=== PATIENT | female | born 1965 | race Caucasian/White ===

== ENCOUNTER → 2016-08-20 | Outpatient (CLI) | payer MEDICARE, MEDICAID ==
[~2016-08-20] MED LIST: ALBUTEROL1.25 MG/3 IH; AMBIEN 10MG10 M1 PO; AMBIEN 10MG10 MG PO; AMBIEN 5MG TABLE5 MG PO; AMITIZA8 MCG PO; AMOXICILLIN 8751 TAB PO; ANTI DEPRESSANT; ANTI-DIARRHEAL2 MG PO; ATIVAN 0.50.5 MG/TAB PO; AVINZA PO; BACTRIM DS 8001 TAB PO; BUMEX 1MG TA1 MG/TA1 PO; BUMEX2 MG PO; CARAFATE 1GM1 G PO; CARAFATE PO; CIPRO500 MG PO; CITALOPRAM20 MG PO; DAZIDOX10 MG PO; DEPAKOTE 250MG250 MG PO; DEPAKOTE ER 25250 MG PO; DESYREL 50MG50 MG PO; DEXILANT60 MG PO; DILAUDID 2MG/2 MG/M1 IV; DILAUDID 4MG TAB4 MG PO; DILAUDID4 MG PO; DROPERIDOL IJ; DROSPIRENONE; FENTANYL 25 MCG TD; FENTANYL 25 MCG TOP; FLEXERIL 1010 MG/TAB PO; FLEXERIL10 MG PO; GABAPENTIN300 M1 PO; HYDROMORPHONE HC2 MG PO; HYOSCYAMINE SL; INDERAL 10MG10 MG PO; INTRATHECAL PUMP; K-DUR 2020 MEQ PO; K-TAB20; KLONOPIN 0.5MG0.5 MG PO; KLOR-CON20 MEQ PO; LASIX 20MG TABL20 MG PO; LEVAQUIN 5500 MG/TAB PO; LIBRAX; LIDODERM PATCH TP; LIORESAL 1010 MG/TAB PO; LIORESAL20 MG PO; LORTAB 10/500 51 TAB PO; LORTAB 5/500 501 TAB PO; LORTAB 7.5/5001 TAB PO; MARINOL5 MG PO; MEDROL 4MG DOSPA4 MG PO; MICRO-K 1010 MEQ PO; MIDAMOR 5MG TAB5 MG PO; MIRALAX PA17 GM/Dose PO; MORPHINE 1515 MG/TAB PO; MORPHINE PAIN PUMP; MS CONTIN 115 MG/TAB PO; MS CONTIN 330 MG/TAB PO; MUCINEX 60600 MG/TA1 PO; NEOMYCIN SULFA500 MG PO; NEXIUM PO; NORCO 325 MG-101 TAB PO; NORCO 325 MG-51 TAB PO; NORCO 325 MG-7.1 TAB PO; PERCOCET 325 MG1 TA2 PO; PERCOCET 325 MG1 TAB PO; PERCOCET 5/321 UDTAB PO; PERCOCET 500 MG1 TAB PO; PERCOCET 650 MG1 TAB PO; PERCR 7.5 PO; PHENERGAN 25 TA25 MG PO; PHENERGAN25 MG PO; PHENERGAN25 MG RC; PHENERGAN25 MG/ML RC; PREVACID 15MG15 M1; PREVACID 30MG30 MG PO; PREVACID30 M1 PO; PRIL40 PO; PRILOSEC 20MG20 MG PO; PROAIR HFA0.09 MG/AC IH; PROAMATINE 5MG T5 MG PO; PROAMATINE10 MG PO; PROTONIX 40MG T40 MG PO; PROVENTIL0.09 MG/A1 IH; QUESTRAN LITE 41 PKT PO; REGLAN 10MG/11 MG/ML PO; REGLAN 10MG10 MG/TAB PO; REGLAN5 MG/ML; REQUIP3 MG PO; RT ADVAIR 228 DISKUS IH; RT ADVAIR 528 DISKUS IH; RT ALBUTER2.5 MG/0.5 IH; SENOKOT S 50 MG1 TAB PO; SENOKOT8.6 MG PO; TOPAMAX 100MG100 MG PO; TOPAMAX100 MG PO; TOPAMAX200 MG PO; TRAZODO50 MG PO; TRAZODONE HCL100 MG PO; TRAZODONE150 MG PO; VALIUM 10MG10 MG/TAB PO; VICODIN 5/5001 UDTAB PO; VICODIN ES 7.5 PO; VICODIN PO; XANAX0.5 MG PO; ZANAFLEX 4MG TAB4 MG PO; ZANAFLEX CAPSULE4 MG PO; ZOCOR 20MG20 MG PO; ZOCOR20 MG PO; ZOFRAN 4MG T4 MG/TAB PO; ZOFRAN 4MG T4 MG/TAB SL; ZOFRAN INJ4 MG/2 ML PO; ZOFRAN ODT4 MG PO; ZOFRAN8 MG PO; ZOLOFT 100MG100 MG PO; ZOLOFT100 MG PO; ZYPREXA ZYDIS5 MG PO; ZYRTEC 10MG10 MG PO
== END ==
LOC: COL.RAD 14:00
DX: M25.522 Pain in left elbow (principal)

== ENCOUNTER 2016-09-07 20:15 | Emergency (ER) | payer MEDICARE, MEDICAID ==
[~2016-09-07] VITALS: Ht 165.1 cm; Wt 96.4 kg
[~2016-09-07 20:15] MED LIST changes: -AMOXICILLIN 8751 TAB PO; -MS CONTIN 330 MG/TAB PO
[2016-09-07 20:20] VITALS: TEMP 99.2
[2016-09-07 20:59] LABS: BASO % 0.6 % (0.0-2.0); EOS # 0.1 (0.0-0.7); EOS % 1.2 % (0-4.0); GRAN # 3.1 (1.4-6.5); GRAN % 45.2 % (42.2-75.2); HEMATOCRIT 42.8 % (37.0-47.0); LYMPH # 3.1 (1.2-3.4); LYMPH % 44.8 % (20.0-51.0); MEAN CELL VOLUME 87 fl (80.0-100.0); MEAN CORPUSCULAR HEMOGLOBIN 28 pg (27.0-31.0); MEAN CORPUSCULAR HGB CONC 33 g/dl (33.0-37.0); MEAN PLATELET VOLUME 9.7 fl (7.4-10.4); MONO # 0.5 (0.1-0.6); MONO % 7.9 % (1.7-9.3); PLATELET COUNT 164 K/mm3 (130-400); RED BLOOD COUNT 4.94 M/mm3 (4.10-5.30); REDCELL DISTRIBUTION WIDTH-CV 13.7 % (11.5-14.5); WHITE BLOOD COUNT 6.8 K/mm3 (4.8-10.8)
[2016-09-07 21:12] LABS: ADJUSTED CALCIUM 9.1 mg/dL (8.4-10.2); ALBUMIN 4.1 gm/dL (3.5-5.0); BILIRUBIN,TOTAL 0.7 mg/dL (0.0-1.0); C-REACTIVE PROTEIN 1.3 mg/dL (0.0-0.9); CALCIUM 9.2 mg/dL (8.4-10.2); CREATININE, serum 0.78 mg/dL (0.52-1.25); POTASSIUM 3.8 mmol/L (3.4-5.0); TOTAL PROTEIN 7.3 gm/dL (6.4-8.2)
[2016-09-07 21:44] LABS: PH 6 (5-8); SQUAMOUS EPITHELIAL 0-2 /hpf; URINE APPEARANCE Clear; URINE BACTERIA None Seen /hpf; URINE BILIRUBIN Negative (NEGATIVE); URINE BLOOD Negative (NEGATIVE); URINE COLOR Yellow; URINE GLUCOSE Negative (NEGATIVE); URINE KETONE Negative (NEGATIVE); URINE RBC 0-2 /hpf; URINE UROBILINOGEN Negative (NEGATIVE); URINE WBC 0-2 /hpf
[2016-09-07] MEDS ORDERED: MS CONTIN 330 MG/TAB PO (21:44)
[2016-09-07] MEDS ORDERED: PERCOCET 325 MG1 TA2 PO (21:49)
[2016-09-07] MEDS ORDERED: AMOXICILLIN 8751 TAB PO (22:01)
[2016-09-07 22:54] VITALS: BP 94/62; PULSE 69
== END 2016-09-07 23:08 | disposition home or self-care (01) ==
LOC: COL.ER 20:15
PROVIDERS: Family Medicine
DX: L03.313 Cellulitis of chest wall (principal); G90.3 Multi-system degeneration of the autonomic nervous system
CPT/HCPCS: J2270; J2405; J7030; Q9967

== ENCOUNTER 2016-09-28 12:45 | Day surgery (SDC) | payer MEDICARE, MEDICAID ==
[~2016-09-28] VITALS: Ht 165.1 cm; Wt 97.9 kg
[~2016-09-28 12:45] MED LIST changes: +AMOXICILLIN 8751 TAB PO; +MS CONTIN 330 MG/TAB PO
[2016-09-28 13:39] VITALS: BP 146/81; PULSE 80; TEMP 97.8
[2016-09-28] MEDS ORDERED: PHENERGAN25 MG RC (13:54)
[2016-09-28] MEDS ORDERED: INDERAL 10MG10 MG PO (13:59)
[2016-09-28 15:00] VITALS: BP 109/65; PULSE 79
[2016-09-28 15:35] VITALS: BP 115/88; PULSE 83
[2016-09-28 15:50] VITALS: BP 106/77; PULSE 69
[2016-09-28 16:00] VITALS: BP 117/85; PULSE 74
== END 2016-09-28 16:30 | disposition home or self-care (01) ==
LOC: SDCO 12:45
DX: T82.7XXA Infection and inflammatory reaction due to other cardiac and vascular devices, implants and grafts, initial encounter (principal); J44.9 Chronic obstructive pulmonary disease, unspecified; F32.9 Major depressive disorder, single episode, unspecified; G90.3 Multi-system degeneration of the autonomic nervous system; E66.9 Obesity, unspecified
CPT/HCPCS: J2250; J2405; J2704; J3010; J7030

== ENCOUNTER 2016-10-12 10:10 | Day surgery (SDC) | payer MEDICARE, MEDICAID ==
[~2016-10-12] VITALS: Ht 165.1 cm; Wt 100.2 kg
[2016-10-12 11:21] VITALS: BP 113/70; PULSE 71; TEMP 98
[2016-10-12 13:15] VITALS: BP 126/85; PULSE 87; TEMP 97.2
[2016-10-12 13:30] VITALS: BP 126/98; PULSE 76
[2016-10-12 13:45] VITALS: BP 115/76; PULSE 75
[2016-10-12 14:00] VITALS: BP 110/74; PULSE 69
== END 2016-10-12 14:15 | disposition home or self-care (01) ==
LOC: SDCO 10:10
DX: G90.3 Multi-system degeneration of the autonomic nervous system (principal); E66.9 Obesity, unspecified; J44.9 Chronic obstructive pulmonary disease, unspecified; G89.29 Other chronic pain
CPT/HCPCS: C1788; J0690; J1644; J2250; J2405; J2704; J7030

== ENCOUNTER → 2016-10-25 | Outpatient (CLI) | payer MEDICARE, MEDICAID | LOC: COL.RAD 10:58 | DX: Z95.828 Presence of other vascular implants and grafts (principal) ==

== ENCOUNTER 2016-10-29 08:47 | Observation (INO) | payer MEDICARE, MEDICAID ==
[2016-10-29] VITALS (7 sets, daily range): BP systolic 91–157; BP diastolic 42–103; PULSE 62–76; TEMP 97.8–98.5
[~2016-10-29] VITALS: Ht 165.1 cm; Wt 96.8 kg
[2016-10-29 09:29] LABS: BASO # 0.1 (0.0-0.2); BASO % 0.7 % (0.0-2.0); EOS # 0.1 (0.0-0.7); EOS % 1.8 % (0-4.0); GRAN # 5.1 (1.4-6.5); GRAN % 67.3 % (42.2-75.2); HEMATOCRIT 42.3 % (37.0-47.0); HEMOGLOBIN 13.9 g/dl (12.5-16.0); LYMPH # 1.8 (1.2-3.4); LYMPH % 24.2 % (20.0-51.0); MEAN CELL VOLUME 86 fl (80.0-100.0); MEAN CORPUSCULAR HEMOGLOBIN 28 pg (27.0-31.0); MEAN CORPUSCULAR HGB CONC 33 g/dl (33.0-37.0); MEAN PLATELET VOLUME 9.1 fl (7.4-10.4); MONO # 0.4 (0.1-0.6); MONO % 5.7 % (1.7-9.3); PLATELET COUNT 221 K/mm3 (130-400); RED BLOOD COUNT 4.93 M/mm3 (4.10-5.30); REDCELL DISTRIBUTION WIDTH-CV 13.1 % (11.5-14.5); WHITE BLOOD COUNT 7.6 K/mm3 (4.8-10.8)
[2016-10-29 09:36] LABS: PARTIAL THROMBOPLASTIN TIME 45.8 SECONDS (26.0-37.0)
[2016-10-29 09:40] LABS: ADJUSTED CALCIUM 9.5 mg/dL (8.4-10.2); ALANINE AMINOTRANSFERASE 21 U/L (9-52); ALBUMIN 4.1 gm/dL (3.5-5.0); ALKALINE PHOSPHATASE 104 U/L (50-136); ANION GAP 14 mmol/L (7-16); BILIRUBIN,TOTAL 0.6 mg/dL (0.0-1.0); BLOOD UREA NITROGEN 12 mg/dL (7-17); CALCIUM 9.6 mg/dL (8.4-10.2); CARBON DIOXIDE 20 mmol/L (22-30); CHLORIDE 106 mmol/L (98-107); CREATININE, serum 0.82 mg/dL (0.52-1.25); GLUCOSE 104 mg/dL (74-106); POTASSIUM 3.8 mmol/L (3.4-5.0); SODIUM 140 mmol/L (137-145); TOTAL PROTEIN 7.6 gm/dL (6.4-8.2)
[2016-10-29 10:05] LABS: TROPONIN-I < 0.012 ng/mL (0.000-0.034)
[2016-10-30 01:24] LABS: pH GASTRIC CONTENTS 4
[2016-10-30 04:11] VITALS: BP 97/61; PULSE 69; TEMP 97.5
[2016-10-30 05:12] LABS: AMPHETAMINE URINE NEGATIVE; BARBITURATES URINE NEGATIVE; BENZODIAZEPINES URINE POSITIVE; BUPRENORPHINE URINE NEGATIVE; METHADONE URINE NEGATIVE; OPIATES URINE POSITIVE; OXYCODONE URINE POSITIVE; PHENCYCLIDINE URINE NEGATIVE; PROPOXYPHENE URINE NEGATIVE; THC CANNABINOIDS URINE POSITIVE
[2016-10-30 08:13] VITALS: BP 101/71; PULSE 74; TEMP 98
== END 2016-10-30 11:16 | disposition home or self-care (01) ==
LOC: COL.ER 08:47 → MEDICAL 11:58
PROVIDERS: Emergency Medicine; Internal Medicine
DX: R55 Syncope and collapse (principal); R11.2 Nausea with vomiting, unspecified; G90.3 Multi-system degeneration of the autonomic nervous system; I35.0 Nonrheumatic aortic (valve) stenosis; K31.84 Gastroparesis; G89.29 Other chronic pain; G43.909 Migraine, unspecified, not intractable, without status migrainosus; F41.8 Other specified anxiety disorders; K21.9 Gastro-esophageal reflux disease without esophagitis; Z66 Do not resuscitate
CPT/HCPCS: G0378; J1650; J2060; J2270; J2405; J3010; J3360; J7030

== ENCOUNTER 2016-12-24 02:58 | Emergency (ER) | payer MEDICARE, MEDICAID ==
[~2016-12-24] VITALS: Ht 165.1 cm; Wt 95.5 kg
[2016-12-24 04:23] LABS: BASO % 0.5 % (0.0-2.0); EOS % 0.5 % (0-4.0); GRAN # 4.4 (1.4-6.5); GRAN % 67.7 % (42.2-75.2); HEMATOCRIT 44.7 % (37.0-47.0); HEMOGLOBIN 15.2 g/dl (12.5-16.0); LYMPH # 1.6 (1.2-3.4); LYMPH % 24.5 % (20.0-51.0); MEAN CELL VOLUME 83 fl (80.0-100.0); MEAN CORPUSCULAR HEMOGLOBIN 28 pg (27.0-31.0); MEAN CORPUSCULAR HGB CONC 34 g/dl (33.0-37.0); MEAN PLATELET VOLUME 8.6 fl (7.4-10.4); MONO # 0.4 (0.1-0.6); MONO % 6.5 % (1.7-9.3); PLATELET COUNT 233 K/mm3 (130-400); RED BLOOD COUNT 5.42 M/mm3 (4.10-5.30); REDCELL DISTRIBUTION WIDTH-CV 12.9 % (11.5-14.5); WHITE BLOOD COUNT 6.5 K/mm3 (4.8-10.8)
[2016-12-24 04:30] LABS: CALCIUM 9.4 mg/dL (8.4-10.2); CREATININE, serum 0.8 mg/dL (0.52-1.25); POTASSIUM 3.3 mmol/L (3.4-5.0)
[2016-12-24 06:24] VITALS: BP 112/71; PULSE 70
== END 2016-12-24 06:33 | disposition home or self-care (01) ==
LOC: COL.ER 02:58
PROVIDERS: Emergency Medicine
DX: K31.84 Gastroparesis (principal); G90.3 Multi-system degeneration of the autonomic nervous system; E87.6 Hypokalemia
CPT/HCPCS: J1644; J2060; J2550; J3010; J7120

== ENCOUNTER 2016-12-24 12:38 | Emergency (ER) | payer MEDICARE, MEDICAID ==
[~2016-12-24] VITALS: Ht 165.1 cm; Wt 90.9 kg
[2016-12-24 12:43] VITALS: TEMP 98.1
[2016-12-24 13:39] LABS: BASO % 0.5 % (0.0-2.0); EOS % 0.5 % (0-4.0); GRAN # 4.7 (1.4-6.5); GRAN % 58.7 % (42.2-75.2); HEMATOCRIT 44.8 % (37.0-47.0); HEMOGLOBIN 15.2 g/dl (12.5-16.0); LYMPH # 2.7 (1.2-3.4); LYMPH % 33.5 % (20.0-51.0); MEAN CELL VOLUME 82 fl (80.0-100.0); MEAN CORPUSCULAR HEMOGLOBIN 28 pg (27.0-31.0); MEAN CORPUSCULAR HGB CONC 34 g/dl (33.0-37.0); MEAN PLATELET VOLUME 8.9 fl (7.4-10.4); MONO # 0.5 (0.1-0.6); MONO % 6.5 % (1.7-9.3); PLATELET COUNT 245 K/mm3 (130-400); RED BLOOD COUNT 5.46 M/mm3 (4.10-5.30)
[2016-12-24 14:05] LABS: ADJUSTED CALCIUM 9.2 mg/dL (8.4-10.2); ALANINE AMINOTRANSFERASE 20 U/L (9-52); ALBUMIN 4.5 gm/dL (3.5-5.0); ALKALINE PHOSPHATASE 100 U/L (50-136); ANION GAP 15 mmol/L (7-16); BLOOD UREA NITROGEN 14 mg/dL (7-17); CALCIUM 9.6 mg/dL (8.4-10.2); CARBON DIOXIDE 18 mmol/L (22-30); CHLORIDE 106 mmol/L (98-107); CREATININE, serum 0.83 mg/dL (0.52-1.25); GLUCOSE 90 mg/dL (74-106); POTASSIUM 3.3 mmol/L (3.4-5.0); SODIUM 139 mmol/L (137-145); TOTAL PROTEIN 7.6 gm/dL (6.4-8.2)
[2016-12-24 14:07] LABS: C-REACTIVE PROTEIN < 0.5 mg/dL (0.0-0.9)
[2016-12-24 16:47] VITALS: BP 114/64; PULSE 82
== END 2016-12-24 16:53 | disposition home or self-care (01) ==
LOC: COL.ER 12:38
PROVIDERS: Emergency Medicine
DX: R11.2 Nausea with vomiting, unspecified (principal); R19.7 Diarrhea, unspecified; R06.4 Hyperventilation; R10.84 Generalized abdominal pain; J44.9 Chronic obstructive pulmonary disease, unspecified; F32.9 Major depressive disorder, single episode, unspecified; G90.3 Multi-system degeneration of the autonomic nervous system; F41.9 Anxiety disorder, unspecified; R00.0 Tachycardia, unspecified
CPT/HCPCS: J1630; J2060; J2405; J7030

== ENCOUNTER → 2017-01-06 | Outpatient (CLI) | payer MEDICARE, MEDICAID | LOC: COL.RAD 13:00 | DX: K22.4 Dyskinesia of esophagus (principal) ==

== ENCOUNTER 2017-04-16 20:55 | Emergency (ER) | payer MEDICARE, MEDICAID ==
[2017-04-16 20:56] VITALS: BP 136/78; TEMP 97.4
[2017-04-16 22:42] VITALS: PULSE 84
[2018-02-07] MEDS ORDERED: ALBUTEROL1.25 MG/3 IH (09:30)
[2018-02-07] MEDS ORDERED: PHENERGAN 25 TA25 MG PO (09:34)
[2018-02-07] MEDS ORDERED: MORPHINE 1515 MG/TAB PO (09:34)
[2018-02-07] MEDS ORDERED: PROTONIX 40MG T40 MG PO (09:35)
[2018-02-07] MEDS ORDERED: TOPAMAX 100MG100 M1 PO (09:37)
[2018-02-07] MEDS ORDERED: ZANAFLEX CAPSULE2 MG PO (09:38)
[2018-03-17] MEDS ORDERED: PROTONIX 40MG T40 MG PO ×2 (10:18)
[2018-05-04] MEDS ORDERED: BIAXIN 250MG T250 M1 PO (01:29)
[2018-05-04] MEDS ORDERED: ZOFRAN ODT4 MG PO (03:07)
[2018-05-04] MEDS ORDERED: PHENERGAN 25 TA25 MG PO (03:12)
[2018-05-04] MEDS ORDERED: PAIN PUMP IT (10:21)
[2018-05-05] MEDS ORDERED: PROTONIX 40MG T40 MG PO (09:51)
[2018-05-05] MEDS ORDERED: PREDNISONE20 MG PO (09:53)
[2018-07-21] MEDS ORDERED: PREDNISONE10 MG PO (12:46)
[2018-07-24] MEDS ORDERED: PHENERGAN 25 TA25 MG PO (10:15)
[2018-07-24] MEDS ORDERED: ZOFRAN ODT4 MG PO (10:15)
== END 2017-04-16 22:45 | disposition home or self-care (01) ==
LOC: COL.ER 20:55
DX: S09.90XA Unspecified injury of head, initial encounter (principal); W20.8XXA Other cause of strike by thrown, projected or falling object, initial encounter; Y92.009 Unspecified place in unspecified non-institutional (private) residence as the place of occurrence of the external cause
CPT/HCPCS: J1170; J2550

== ENCOUNTER 2017-07-10 09:46 | Emergency (ER) | payer MEDICARE, MEDICAID ==
[~2017-07-10] VITALS: Ht 165.1 cm; Wt 113.6 kg
[2017-07-10 09:50] VITALS: TEMP 97.4
[2017-07-10 10:56] LABS: BASO # 0.1 (0.0-0.2); BASO % 0.6 % (0.0-2.0); EOS # 0.1 (0.0-0.7); EOS % 1.2 % (0-4.0); GRAN # 6.1 (1.4-6.5); HEMATOCRIT 41.6 % (37.0-47.0); HEMOGLOBIN 13.8 g/dl (12.5-16.0); LYMPH # 2.3 (1.2-3.4); LYMPH % 23.7 % (20.0-51.0); MEAN CELL VOLUME 84 fl (80.0-100.0); MEAN CORPUSCULAR HEMOGLOBIN 28 pg (27.0-31.0); MEAN CORPUSCULAR HGB CONC 33 g/dl (33.0-37.0); MEAN PLATELET VOLUME 8.7 fl (7.4-10.4); MONO # 1.1 (0.1-0.6); MONO % 10.8 % (1.7-9.3); PLATELET COUNT 211 K/mm3 (130-400); RED BLOOD COUNT 4.97 M/mm3 (4.10-5.30); WHITE BLOOD COUNT 9.7 K/mm3 (4.8-10.8)
[2017-07-10 11:06] LABS: ADJUSTED CALCIUM 8.9 mg/dL (8.4-10.2); ALBUMIN 4.3 gm/dL (3.5-5.0); BILIRUBIN,TOTAL 0.5 mg/dL (0.0-1.0); CALCIUM 9.1 mg/dL (8.4-10.2); CREATININE, serum 0.85 mg/dL (0.52-1.25); MAGNESIUM 1.9 mg/dL (1.6-2.3); POTASSIUM 3.4 mmol/L (3.4-5.0); TOTAL PROTEIN 7.4 gm/dL (6.4-8.2)
[2017-07-10 11:45] LABS: COLLECTION METHOD CLEAN CATCH
[2017-07-10 12:05] LABS: MUCOUS Present /lpf; PH 5 (5-8); SQUAMOUS EPITHELIAL None Seen /hpf; URINE APPEARANCE Clear; URINE BACTERIA None Seen /hpf; URINE BILIRUBIN Negative (NEGATIVE); URINE BLOOD Negative (NEGATIVE); URINE COLOR Yellow; URINE GLUCOSE Negative (NEGATIVE); URINE KETONE Trace (NEGATIVE); URINE LEUKOCYTE ESTERASE Trace (NEGATIVE); URINE PROTEIN(semi-quant) Negative (NEGATIVE); URINE RBC 0-2 /hpf; URINE UROBILINOGEN Negative (NEGATIVE)
[2017-07-10 12:19] VITALS: BP 110/64; PULSE 76
== END 2017-07-10 12:30 | disposition home or self-care (01) ==
LOC: COL.ER 09:46
PROVIDERS: Physician Assistant
DX: S09.90XA Unspecified injury of head, initial encounter (principal); R19.7 Diarrhea, unspecified; R11.10 Vomiting, unspecified; J45.909 Unspecified asthma, uncomplicated; Z91.81 History of falling; W19.XXXA Unspecified fall, initial encounter; W22.8XXA Striking against or struck by other objects, initial encounter
CPT/HCPCS: J1170; J2060; J2550; J7030

== ENCOUNTER 2017-08-11 08:47 | Emergency (ER) | payer MEDICARE, MEDICAID ==
[~2017-08-11] VITALS: Ht 165.1 cm; Wt 97.7 kg
[2017-08-11 09:47] LABS: BASO % 0.2 % (0.0-2.0); EOS % 0.1 % (0-4.0); GRAN # 7.9 (1.4-6.5); GRAN % 73.3 % (42.2-75.2); HEMATOCRIT 40.5 % (37.0-47.0); HEMOGLOBIN 13.2 g/dl (12.5-16.0); LYMPH # 1.7 (1.2-3.4); MEAN CELL VOLUME 86 fl (80.0-100.0); MEAN CORPUSCULAR HEMOGLOBIN 28 pg (27.0-31.0); MEAN CORPUSCULAR HGB CONC 33 g/dl (33.0-37.0); MEAN PLATELET VOLUME 9.2 fl (7.4-10.4); PLATELET COUNT 180 K/mm3 (130-400); RED BLOOD COUNT 4.69 M/mm3 (4.10-5.30); REDCELL DISTRIBUTION WIDTH-CV 14.6 % (11.5-14.5)
[2017-08-11 09:51] LABS: ALANINE AMINOTRANSFERASE 34 U/L (9-52); ALBUMIN 4.5 gm/dL (3.5-5.0); ALKALINE PHOSPHATASE 96 U/L (50-136); ANION GAP 9 mmol/L (7-16); AST,SGOT 26 U/L (15-37); BILIRUBIN,TOTAL 0.3 mg/dL (0.0-1.0); BLOOD UREA NITROGEN 11 mg/dL (7-17); CALCIUM 9.5 mg/dL (8.4-10.2); CARBON DIOXIDE 25 mmol/L (22-30); CHLORIDE 106 mmol/L (98-107); CREATININE, serum 0.72 mg/dL (0.52-1.25); GLUCOSE 101 mg/dL (74-106); LIPASE 29 U/L (23-300); SODIUM 140 mmol/L (137-145); TOTAL PROTEIN 7.4 gm/dL (6.4-8.2)
[2017-08-11 10:02] LABS: TROPONIN-I < 0.012 ng/mL (0.000-0.034)
[2017-08-11 10:06] LABS: PROLACTIN 32.8 ng/mL (3.0-18.6)
[2017-08-11 12:03] VITALS: BP 122/77; PULSE 70; TEMP 98
== END 2017-08-11 11:57 | disposition home or self-care (01) ==
LOC: COL.ER 08:47
PROVIDERS: Emergency Medicine
DX: S70.01XA Contusion of right hip, initial encounter (principal); S70.02XA Contusion of left hip, initial encounter; F41.9 Anxiety disorder, unspecified; R56.9 Unspecified convulsions; V43.52XA Car driver injured in collision with other type car in traffic accident, initial encounter
CPT/HCPCS: J1170; J1630; J2060; J7030

== ENCOUNTER → 2017-08-26 | Outpatient (CLI) | payer MEDICARE, MEDICAID | LOC: COL.CARD 09:59 | DX: R56.9 Unspecified convulsions (principal) ==

== ENCOUNTER 2017-10-31 07:19 | Emergency (ER) | payer MEDICARE, MEDICAID ==
[~2017-10-31] VITALS: Ht 165.1 cm; Wt 97.7 kg
[2017-10-31 07:29] VITALS: BP 129/84
[2017-10-31] MEDS ORDERED: PEPCID 20MG TAB20 MG PO (08:24)
[2017-10-31] MEDS ORDERED: PREDNISONE20 MG PO (08:24)
[2017-10-31 13:57] VITALS: PULSE 90; TEMP 98.3
== END 2017-10-31 08:50 | disposition home or self-care (01) ==
LOC: COL.ER 07:19
DX: H57.8 Other specified disorders of eye and adnexa (principal); F41.9 Anxiety disorder, unspecified; Z79.51 Long term (current) use of inhaled steroids
CPT/HCPCS: J7512

== ENCOUNTER 2017-11-15 19:12 | Emergency (ER) | payer MEDICARE, MEDICAID ==
[~2017-11-15] VITALS: Ht 165.1 cm; Wt 97.7 kg
[~2017-11-15 19:12] MED LIST changes: +PEPCID 20MG TAB20 MG PO; +PREDNISONE20 MG PO
[2017-11-15 19:24] LABS: ARTERIAL BLD GAS O2 SATURATION 91.7 % (92-100); ARTERIAL BLD GAS TCO2 CT 23.1; ARTERIAL BLOOD GAS HCO3 21.8 meq/L (22-26); ARTERIAL BLOOD GAS PCO2 42.2 mmHg (35-45); ARTERIAL BLOOD GAS PO2 64.8 mmHg (80-100); ARTERIAL BLOOD GAS pH 7.33 (7.35-7.45)
[2017-11-15 19:31] LABS: BASO # 0.1 (0.0-0.2); BASO % 0.7 % (0.0-2.0); EOS # 0.1 (0.0-0.7); EOS % 1.2 % (0-4.0); GRAN # 3.6 (1.4-6.5); HEMATOCRIT 44.1 % (37.0-47.0); HEMOGLOBIN 14.4 g/dl (12.5-16.0); LYMPH # 5.5 (1.2-3.4); LYMPH % 53.8 % (20.0-51.0); MEAN CELL VOLUME 86 fl (80.0-100.0); MEAN CORPUSCULAR HEMOGLOBIN 28 pg (27.0-31.0); MEAN CORPUSCULAR HGB CONC 33 g/dl (33.0-37.0); MEAN PLATELET VOLUME 9.2 fl (7.4-10.4); MONO # 0.9 (0.1-0.6); MONO % 8.9 % (1.7-9.3); PLATELET COUNT 287 K/mm3 (130-400); RED BLOOD COUNT 5.14 M/mm3 (4.10-5.30); REDCELL DISTRIBUTION WIDTH-CV 13.1 % (11.5-14.5)
[2017-11-15 19:33] LABS: COLLECTION METHOD CATHETER
[2017-11-15 19:41] LABS: ALANINE AMINOTRANSFERASE 33 U/L (9-52); ALBUMIN 3.7 gm/dL (3.5-5.0); ALKALINE PHOSPHATASE 73 U/L (50-136); ANION GAP 16 mmol/L (7-16); AST,SGOT 13 U/L (15-37); BILIRUBIN,TOTAL 0.3 mg/dL (0.0-1.0); BLOOD UREA NITROGEN 14 mg/dL (7-17); CALCIUM 8.8 mg/dL (8.4-10.2); CARBON DIOXIDE 22 mmol/L (22-30); CHLORIDE 101 mmol/L (98-107); CREATININE, serum 1.21 mg/dL (0.52-1.25); GLUCOSE 386 mg/dL (74-106); POTASSIUM 4.5 mmol/L (3.4-5.0); SODIUM 139 mmol/L (137-145); TOTAL PROTEIN 6.5 gm/dL (6.4-8.2)
[2017-11-15 19:43] LABS: ACETAMINOPHEN < 10 ug/mL (10-30); ALCOHOL(ethanol),MEDICAL < 10 mg/dL; SALICYLATE < 1.0 mg/dL
[2017-11-15 19:44] LABS: MUCOUS Present /lpf; PH 5 (5-8); SQUAMOUS EPITHELIAL 0-2 /hpf; URINE APPEARANCE Clear; URINE BACTERIA None Seen /hpf; URINE BILIRUBIN Negative (NEGATIVE); URINE BLOOD Negative (NEGATIVE); URINE COLOR Yellow; URINE GLUCOSE Negative (NEGATIVE); URINE KETONE Negative (NEGATIVE); URINE LEUKOCYTE ESTERASE Negative (NEGATIVE); URINE NITRATE Negative (NEGATIVE); URINE PROTEIN(semi-quant) Negative (NEGATIVE); URINE RBC 0-2 /hpf; URINE UROBILINOGEN Negative (NEGATIVE)
[2017-11-15 19:46] LABS: PROTHROMBIN TIME 12.1 SECONDS (9.7-12.8)
[2017-11-15 19:52] LABS: TRICYCLIC ANTIDEPRESS URINE NEGATIVE
[2017-11-15 19:55] LABS: TROPONIN-I < 0.012 ng/mL (0.000-0.034)
[2017-11-15] MEDS ORDERED: TOPAMAX 100MG100 M1 PO (20:11)
[2017-11-15] MEDS ORDERED: PROTONIX 40MG T40 MG PO (20:12)
[2017-11-15] MEDS ORDERED: ZANAFLEX2 MG PO (20:12)
[2017-11-15 20:13] VITALS: TEMP 97.4
[2017-11-15 20:50] VITALS: BP 133/101; PULSE 69
[2017-11-15 20:51] LABS: ARTERIAL BLD GAS O2 SATURATION 95.7 % (92-100); ARTERIAL BLD GAS TCO2 CT 22.6; ARTERIAL BLOOD GAS BASE EXCESS -3.2 (-2-2); ARTERIAL BLOOD GAS HCO3 21.4 meq/L (22-26); ARTERIAL BLOOD GAS PCO2 37.3 mmHg (35-45); ARTERIAL BLOOD GAS PO2 81.2 mmHg (80-100); ARTERIAL BLOOD GAS pH 7.38 (7.35-7.45)
== END 2017-11-15 21:00 | disposition short-term general hospital (02) ==
LOC: COL.ER 19:12
PROVIDERS: Emergency Medicine
DX: T42.8X2A Poisoning by antiparkinsonism drugs and other central muscle-tone depressants, intentional self-harm, initial encounter (principal); J45.909 Unspecified asthma, uncomplicated; F32.9 Major depressive disorder, single episode, unspecified; F41.9 Anxiety disorder, unspecified; G89.29 Other chronic pain; M54.9 Dorsalgia, unspecified; Z90.710 Acquired absence of both cervix and uterus; Z90.49 Acquired absence of other specified parts of digestive tract; Z90.89 Acquired absence of other organs
CPT/HCPCS: J0461; J7030

== ENCOUNTER → 2018-01-18 | Outpatient (CLI) | payer MEDICARE, MEDICAID ==
[~2018-01-18] MED LIST changes: +TOPAMAX 100MG100 M1 PO; +ZANAFLEX2 MG PO
== END ==
LOC: COL.RAD 09:02
DX: I27.20 Pulmonary hypertension, unspecified (principal); E04.1 Nontoxic single thyroid nodule; Z90.49 Acquired absence of other specified parts of digestive tract; Z95.828 Presence of other vascular implants and grafts

== ENCOUNTER → 2018-01-31 | Outpatient (CLI) | payer MEDICARE, MEDICAID | LOC: COL.RAD 11:38 | DX: E04.9 Nontoxic goiter, unspecified (principal); E04.1 Nontoxic single thyroid nodule ==

== ENCOUNTER → 2018-02-09 | Outpatient (CLI) | payer MEDICARE, MEDICAID ==
[~2018-02-09] VITALS: Ht 165.1 cm; Wt 105.6 kg
[~2018-02-09] MED LIST changes: +ZANAFLEX CAPSULE2 MG PO
[2018-02-09 12:13] VITALS: BP 120/88; PULSE 96
[2018-02-09 13:38] VITALS: BP 119/87; PULSE 80
== END ==
LOC: COL.RAD 11:45
DX: E04.2 Nontoxic multinodular goiter (principal); I95.1 Orthostatic hypotension

== ENCOUNTER 2018-03-15 16:17 | Observation (INO) | payer MEDICARE, MEDICAID ==
[~2018-03-15] VITALS: Ht 167.6 cm; Wt 93.4 kg
[2018-03-15 17:33] LABS: BASO # 0.1 (0.0-0.2); EOS # 0.1 (0.0-0.7); EOS % 1.8 % (0-4.0); GRAN % 49.3 % (42.2-75.2); HEMATOCRIT 43.1 % (37.0-47.0); HEMOGLOBIN 14.3 g/dl (12.5-16.0); LYMPH # 2.3 (1.2-3.4); LYMPH % 37.6 % (20.0-51.0); MEAN CELL VOLUME 84 fl (80.0-100.0); MEAN CORPUSCULAR HEMOGLOBIN 28 pg (27.0-31.0); MEAN CORPUSCULAR HGB CONC 33 g/dl (33.0-37.0); MEAN PLATELET VOLUME 9.1 fl (7.4-10.4); MONO # 0.6 (0.1-0.6); MONO % 9.8 % (1.7-9.3); PLATELET COUNT 189 K/mm3 (130-400); RED BLOOD COUNT 5.16 M/mm3 (4.10-5.30); REDCELL DISTRIBUTION WIDTH-CV 13.2 % (11.5-14.5)
[2018-03-15 17:42] LABS: ALBUMIN 4.1 gm/dL (3.5-5.0); BILIRUBIN,TOTAL 0.4 mg/dL (0.0-1.0); CALCIUM 9.1 mg/dL (8.4-10.2); CREATININE, serum 0.78 mg/dL (0.52-1.25); MAGNESIUM 1.6 mg/dL (1.6-2.3); POTASSIUM 3.7 mmol/L (3.4-5.0); TOTAL PROTEIN 7.2 gm/dL (6.4-8.2)
[2018-03-15 17:47] VITALS: BP 96/74; PULSE 61; TEMP 97.9
[2018-03-15] MEDS ORDERED: 00186-0370-20 IH (17:50)
[2018-03-15] MEDS ORDERED: FLORINEF ACETA0.1 MG PO (17:51)
[2018-03-15] MEDS ORDERED: NORVASC2.5 MG PO (17:52)
[2018-03-15] MEDS ORDERED: MEDROL4 MG (17:53)
[2018-03-15] MEDS ORDERED: KLOR-CON 88 ME1 PO (17:54)
[2018-03-15] MEDS ORDERED: ALBUTEROL0.83 MG/ML IH (17:54)
[2018-03-15] MEDS ORDERED: ATIVAN 0.50.5 MG/TAB PO (17:55)
[2018-03-15] MEDS ORDERED: LASIX 40MG TABL40 MG PO (17:55)
[2018-03-15 20:00] VITALS: BP 90/65; PULSE 71; TEMP 97.4
[2018-03-15 23:59] LABS: MUCOUS Present /lpf; PH 5 (5-8); SQUAMOUS EPITHELIAL 0-2 /hpf; URINE APPEARANCE Hazy; URINE BACTERIA None Seen /hpf; URINE BILIRUBIN Negative (NEGATIVE); URINE BLOOD Negative (NEGATIVE); URINE COLOR Yellow; URINE GLUCOSE Negative (NEGATIVE); URINE KETONE Negative (NEGATIVE); URINE LEUKOCYTE ESTERASE Negative (NEGATIVE); URINE NITRATE Negative (NEGATIVE); URINE PROTEIN(semi-quant) Negative (NEGATIVE); URINE RBC 0-2 /hpf; URINE UROBILINOGEN Negative (NEGATIVE); URINE WBC 0-2 /hpf
[2018-03-16] LABS: COLLECTION METHOD CATHETER
[2018-03-16 04:12] VITALS: BP 93/55; PULSE 61; TEMP 97.4
[2018-03-16 07:22] VITALS: BP 115/71; PULSE 70; TEMP 97.9
[2018-03-16 08:00] LABS: CALCIUM 8.8 mg/dL (8.4-10.2); CREATININE, serum 0.75 mg/dL (0.52-1.25)
[2018-03-16 11:20] VITALS: BP 108/68; PULSE 80; TEMP 98.1
[2018-03-16 15:43] VITALS: BP 103/65; PULSE 82; TEMP 98.4
[2018-03-16 20:40] VITALS: BP 101/61; PULSE 89; TEMP 98.6
[2018-03-17 00:34] VITALS: BP 102/61; PULSE 80; TEMP 97.4
[2018-03-17 04:12] VITALS: BP 122/85; PULSE 71; TEMP 98.5
[2018-03-17 07:05] VITALS: BP 108/72; PULSE 66; TEMP 98.4
[2018-03-17] MEDS ORDERED: ZOFRAN ODT4 MG PO (10:18)
[2018-03-17] MEDS ORDERED: PROTONIX 40MG T40 MG PO (10:18)
[2018-03-17] MEDS ORDERED: ZANTAC 150MG T150 MG PO (10:19)
== END 2018-03-17 11:30 | disposition home or self-care (01) ==
LOC: MEDICAL 16:17
PROVIDERS: Family Medicine
DX: R11.2 Nausea with vomiting, unspecified (principal); E86.0 Dehydration; G90.3 Multi-system degeneration of the autonomic nervous system; G89.29 Other chronic pain; Z96.89 Presence of other specified functional implants; I10 Essential (primary) hypertension; K31.84 Gastroparesis; G25.81 Restless legs syndrome; Z79.899 Other long term (current) drug therapy
CPT/HCPCS: C9113; G0378; G8978-GP; G8979-GP; J1650; J2060; J2270; J2405; J2550; J3480; J7509

== ENCOUNTER → 2018-05-23 | Outpatient (CLI) | payer MEDICARE, MEDICAID ==
[~2018-05-23] MED LIST changes: +00186-0370-20 IH; +ALBUTEROL0.83 MG/ML IH; +BIAXIN 250MG T250 M1 PO; +FLORINEF ACETA0.1 MG PO; +KLOR-CON 88 ME1 PO; +LASIX 40MG TABL40 MG PO; +MEDROL4 MG; +NORVASC2.5 MG PO; +PAIN PUMP IT; +ZANTAC 150MG T150 MG PO
== END ==
LOC: COL.RAD 13:58
DX: J84.10 Pulmonary fibrosis, unspecified (principal); Z95.828 Presence of other vascular implants and grafts; Z90.49 Acquired absence of other specified parts of digestive tract; Z97.8 Presence of other specified devices

== ENCOUNTER → 2018-07-20 | Outpatient (CLI) | payer MEDICARE, MEDICAID ==
[~2018-07-20] VITALS: Ht 165.1 cm; Wt 97.0 kg
[~2018-07-20] MED LIST changes: +PREDNISONE10 MG PO
[2018-07-20 16:00] VITALS: BP 94/65; PULSE 70; TEMP 97.3
[2018-07-20 17:44] VITALS: BP 96/62; PULSE 62
== END ==
LOC: EUO 14:53
DX: E86.0 Dehydration (principal); Z45.2 Encounter for adjustment and management of vascular access device; Z95.9 Presence of cardiac and vascular implant and graft, unspecified
CPT/HCPCS: J1170; J1644; J2405; J7030

== ENCOUNTER 2020-01-23 22:07 | Observation (INO) | payer MEDICARE, MEDICAID ==
[~2020-01-23] VITALS: Ht 165.1 cm; Wt 91.3 kg
[2020-01-24] VITALS (7 sets, daily range): BP systolic 102–120; BP diastolic 60–94; PULSE 62–71; TEMP 97.1–98.6
[2020-01-24] MEDS ORDERED: PEPCID40 MG PO (00:35)
[2020-01-24] MEDS ORDERED: QUDEXY XR200 MG PO (00:37)
[2020-01-24] MEDS ORDERED: SYNTHROID0.1 MG/TAB PO (00:40)
[2020-01-24] MEDS ORDERED: ZOLOFT 100MG100 MG PO (00:41)
[2020-01-24] MEDS ORDERED: PROAMATINE10 MG PO (00:44)
[2020-01-24] MEDS ORDERED: ZANAFLEX CAPSULE6 MG PO (00:45)
--- NOTE | 2020-01-24 01:15 | NUR ---
Pt. arrived to the floor via stretcher. Pt. is A&OX3, assessment complete. INT to rt. ac patent. Peg tube noted to abd without a cap. Tube is clamped. Pt. reports pain to abd. at a 9. Pt. denies further needs.
[2020-01-24 03:10] LABS: BASO % 0.8 % (0.0-2.0); EOS # 0.1 (0.0-0.7); EOS % 1.5 % (0-4.0); GRAN # 2.5 (1.4-6.5); GRAN % 47.3 % (42.2-75.2); HEMATOCRIT 39.7 % (37.0-47.0); HEMOGLOBIN 12.8 g/dl (12.5-16.0); LYMPH # 2.1 (1.2-3.4); MEAN CELL VOLUME 87 fl (80.0-100.0); MEAN CORPUSCULAR HEMOGLOBIN 28 pg (27.0-31.0); MEAN CORPUSCULAR HGB CONC 32 g/dl (33.0-37.0); MEAN PLATELET VOLUME 8.7 fl (7.4-10.4); MONO # 0.5 (0.1-0.6); MONO % 10.2 % (1.7-9.3); PLATELET COUNT 148 K/mm3 (130-400); RED BLOOD COUNT 4.56 M/mm3 (4.10-5.30); REDCELL DISTRIBUTION WIDTH-CV 12.7 % (11.5-14.5)
[2020-01-24 03:15] LABS: INR 1.1 (0.8-3.0); PROTHROMBIN TIME 11.9 SECONDS (9.7-12.8)
[2020-01-24 03:19] LABS: ALBUMIN 3.9 gm/dL (3.5-5.0); BILIRUBIN,TOTAL 0.7 mg/dL (0.0-1.0); CREATININE, serum 0.62 (0.52-1.25); MAGNESIUM 1.9 mg/dL (1.6-2.3); POTASSIUM 3.9 mmol/L (3.4-5.0); TOTAL PROTEIN 6.9 gm/dL (6.4-8.2)
[2020-01-24 04:56] LABS: COLLECTION METHOD CATHETER
[2020-01-24 05:16] LABS: PH 5 (5-8); URINE APPEARANCE Hazy; URINE BACTERIA None Seen /hpf; URINE BILIRUBIN Negative (NEGATIVE); URINE BLOOD Negative (NEGATIVE); URINE COLOR Yellow; URINE GLUCOSE Negative (NEGATIVE); URINE KETONE Negative (NEGATIVE); URINE LEUKOCYTE ESTERASE 3+ (NEGATIVE); URINE NITRATE Negative (NEGATIVE); URINE PROTEIN(semi-quant) Negative (NEGATIVE); URINE WBC 20-50 /hpf
--- NOTE | 2020-01-24 10:35 | NUR ---
CHIKI met with the patient to discuss discharge plan. The patient lives in [place] with her daughter, Aimee (ph#[phone]), son-in-law (Emigdio), and grandson. She reports needing assistance with ADLs and has a wheelchair and peg tube. She states that her daughter, Aimee, is her caregiver by the state and that she helps her with her ADLs and her peg tube. She receives her peg tube feedings from [facility]. The patient's PCP is Dr. Bridget Bales and she receives her medications at [facility] in [place]. She reports no difficulties obtaining her meds. The patient has a DPOA-HC in EMR, which lists Roberto Andrews. The patient reports that this is her late father and that she would like to complete a new DPOA-HC. CHIKI provided her with a form. The patient designated her daughter, Aimee, or son-in-law, Emigdio. CHIKI and the patient's RN witnessed the patient's signature. The patient was provided with the original and some copies. CHIKI placed a copy of the form in the patient's chart. The patient plans to return home with her family upon discharge. SW to continue to follow as needed.
--- NOTE | 2020-01-24 18:00 | NUR ---
Patient is doing well today. She is getting dilauded for pain every 2 hours or so. Nausea seemed to be better this afternoon. Ortiz is secured to leg, Urine yellow and clear. Pegtube continues to be hooked up to LIS, output is baugh in color. She had 100ml out. Patient is having a procedure in the morning. No other changes at this time. Call light within reach.
--- NOTE | 2020-01-24 20:00 | NUR ---
Received report from SANA Jean Baptiste. Pt currently lying in bed. Pt has her call light within reach. Her feeding tube is currently hooked up to low intermittent suction.
--- NOTE | 2020-01-24 22:00 | NUR ---
Pt was able to sign her consent at this time. Pt has her call light within reach and her bed is in lowest position .
[2020-01-25] VITALS (13 sets, daily range): BP systolic 99–127; BP diastolic 60–83; PULSE 62–85; TEMP 97.9–98.6
--- NOTE | 2020-01-25 | NUR ---
Pt is currently lying in bed. Pt has been in quited a bit of pain. Pt has requested pain and nausea medication as she was able. Pt has had pain and nausea medication and has her call light within reach.
--- NOTE | 2020-01-25 03:47 | NUR ---
Pt has slept well during the night. Pt called out around 0340 requesting something for pain and something of nausea. Pt was given pain medication at 0347 and was given something for nausea at 0402. Pt was assisted with repositioning in bed. She has her call [facility] within reach and her bed is in lowest position.
--- NOTE | 2020-01-25 07:28 | NUR ---
Patient down to Endo by bed.
--- NOTE | 2020-01-25 07:31 | NUR ---
Pt currently headed down to ENDO. Reported off to SANA Francisco.
--- NOTE | 2020-01-25 08:30 | NUR ---
Patient up from Endo. Alert and orinted x 3. Assessment complete. IV to right AC without complications. Ortiz to dependent drainage with clear yellow urine in bag. Requested pain medications for pain 9/10 to abdomen.Medications given per orders. New PEG tube in place, clamped at this time. No further needs at this time.
--- NOTE | 2020-01-25 15:07 | NUR ---
I have talked with Dewayne at length about her feeling of being tired and "done" with fighting her disease. Dewayne has a daughter getting in April and would like to be able to attend the wedding if possible. She is aware that with her current conditions that she may not survive until April. "I don't want to disappoint my daughters" "They want me to keep trying". Pt admits that she tried to commit suicide earlier and then promised her daughters that she would keep trying to live through this. Daughter Aimee is supposed to be coming over this afternoon and does want to talk but in a conversation earlier this afternoon, she and her sister insisted that Dewayne keep trying to get better. Dewayne and I talked about hospice services and that these could be done at home vs in a facility (retirement or hospice house). Dewayne is very sure that she wants to remain at home and that her daughter could be her 24hr caregiver. Dewayne also reports signing a new DPOA-HC form naming her daughter Aimee and her Jose as her new DPOA-HC.
--- NOTE | 2020-01-25 15:15 | NUR ---
Asked by primary nurse to access port as IV site was lost. Was able to access port and obtained good blood return. Site was dressed and primary nurse was notified.
--- NOTE | 2020-01-25 16:48 | NUR ---
Criss and CHIKI in to see patient
--- NOTE | 2020-01-25 17:10 | NUR ---
I talked with pt and her daughter Aimee about goals of care, "when enough is enough". Dewayne talks about wanting to be there for daughter's wedding in April but stating her daughter needs to be able to let her go when it is time. I tried to facilitate a conversation between daughter and Dewayne about what would be the line of when she would no longer want to keep trying to live and be willing to go to hospice. Dewayne replied that she did not want any other procedures done, she was a DNR. She reported feeling lonely at home and misses talking to people. Discussed facetime to allow conversation with others. We talked about feedings on hospice, we talked about services that hospice could provide for both Dewayne and for her family. They both agreed at this time that they are not ready to sign up for hospice before the wedding but would consider after the wedding. Will follow up on Tuesday if pt is still here. Reinforced that this could be discussed with Dr Bales, with Dr Jacques and with weekend administrator social welfare if needed.
--- NOTE | 2020-01-25 18:43 | NUR ---
Patient has done well throughout the day. Has requested pain meds for pain to abdomen after PEG tube replace. Fluids continue infusing per orders to right chest port. Denies further needs at this time.
--- NOTE | 2020-01-25 20:00 | NUR ---
Receieved report from SANA Francisco. Pt is currently lying in bed. Pt seems to be very emotional. She informed me that she was upset about being on pallative care. She said she feels ok about it but hates to see her daughter cry. She talked about her illness and how it makes her sad that it has no cure. Pt was glad that I was able to talk with her and allow her to express how she was feeling. She has her call light within reach and her bed is in lowest position.
[2020-01-26 02:42] VITALS: BP 107/60; PULSE 69; TEMP 97.8
--- NOTE | 2020-01-26 03:00 | NUR ---
Pt has slept well during the night. Pt did call out a few times for pain and nausea medication. Pt has been better since I was able to talk with her about her treatment. Pt has her call light within reach and her bed is in lowest position .
[2020-01-26 05:54] VITALS: BP 114/82; PULSE 70; TEMP 98
--- NOTE | 2020-01-26 07:35 | NUR ---
Reported off to SANA Barraza. Pt has her call light within reach. Pt was emotional this morning when talking about her condition. Pt requested something for pain whenever she is able to have something.
[2020-01-26 08:00] VITALS: BP 137/80; PULSE 72; TEMP 98.1
--- NOTE | 2020-01-26 08:30 | NUR ---
SHIFT ASSESSMENT AND MEDICATION ADMINISTRATION COMPLETED AT APPROXIMATELY THIS TIME. PATIENT IS A&OX4. VSS. BOWEL SOUNDS ACTIVE ALL FOUR QUADRANTS. ABDOMINAL PEG TUBE SITE DRESSED WITH GAUZE AND THE DRESSING IS CD&I. MEDCATIONS CRUSHED AND MIXED WITH WARM WATER AND ADMINISTERED VIA PEG TUBE BY GRAVITY. PEG TUBE FLUSHED WITH APPROXIMATELY 35 MLS OF WARM WATER. PEG TUBE CLAMPED. JEYSON CATH TO RIGHT CHEST WITH IV FLUIDS INFUSING. INDWELLING JONES CATHETER TO DEPENDENT DRAINAGE WITH A MODERATE AMOUNT OF CLEAR, YELLOW URINE PRESENT IN JONES BAG. PATIENT RATING HER PAIN A 8/10 ON A 0-10 SCALE THIS MORNING WITH PAIN IN THE ABDOMEN AND BACK. PATIENT DESCRIBES THE PAIN A PRESSURE WITH SHARP PAIN. THE PAIN IS CONSTANT AND WORSE WITH MOVEMENT. PATIENT HAVING NAUSEA THIS MORNING. PATIENT GIVEN PRN IV PHENERGAN. PATIENT STATES THAT SHE HAS SOME SOB, BUT THAT IT IS NO WORSE THAN HER NORMAL. PATIENT DENIES A PRODUCTIVE COUGH. ALL LUNG FIELD CLEAR UPON AUSCULTATION. CALL LIGHT WITHIN REACH. BETHEL SILVESTRE ENTERED ROOM WHILE THIS NURSE WAS PRESENT. PATIENT COMPLAINING OF SOME CHEST PAIN THIS MORNING. ADDRESSED BY BETHEL. PATIENT DENIES ANY OTHER NEEDS AT THIS TIME.
[2020-01-26 09:19] LABS: BASO % 0.6 % (0.0-2.0); EOS # 0.1 (0.0-0.7); EOS % 2.2 % (0-4.0); GRAN # 3.1 (1.4-6.5); GRAN % 61.7 % (42.2-75.2); HEMOGLOBIN 11.8 g/dl (12.5-16.0); LYMPH # 1.4 (1.2-3.4); LYMPH % 27.8 % (20.0-51.0); MEAN CELL VOLUME 85 fl (80.0-100.0); MEAN CORPUSCULAR HEMOGLOBIN 28 pg (27.0-31.0); MEAN CORPUSCULAR HGB CONC 33 g/dl (33.0-37.0); MEAN PLATELET VOLUME 9.5 fl (7.4-10.4); MONO # 0.4 (0.1-0.6); MONO % 7.5 % (1.7-9.3); PLATELET COUNT 125 K/mm3 (130-400); RED BLOOD COUNT 4.15 M/mm3 (4.10-5.30); REDCELL DISTRIBUTION WIDTH-CV 12.2 % (11.5-14.5)
[2020-01-26 09:22] LABS: HEMATOCRIT 35.4 % (37.0-47.0)
[2020-01-26 09:27] LABS: CALCIUM 9.1 mg/dL (8.4-10.2); CREATININE, serum 0.68 (0.52-1.25); POTASSIUM 3.6 mmol/L (3.4-5.0)
[2020-01-26 11:09] VITALS: BP 117/64; PULSE 57; TEMP 97.9
--- NOTE | 2020-01-26 12:30 | NUR ---
PATIENT GIVEN JEVITY TUBE FEED VIA GRAVITY AND FLUSHED WITH 40 MLS OF WARM WATER AFTERWARDS. PATIENT TOLERATING WELL. PATIENT ON PHONE WITH FAMILY AT THIS TIME.
--- NOTE | 2020-01-26 14:50 | NUR ---
PATIENT GIVEN AFTERNOON MEDICATIONS VIA PEG TUBE AND FLUSHED WITH WARM WATER. PATIENT RIGHT CHEST JEYSON CATH HEPARINIZED AND DE-ACCESSED PER PROTOCOL. SITE COVERED WITH A BANDAID. PATIENT TOLERATED WELL. JONES CATHETER DISCONTINUED PER PENDING DISCHARGE. 9 MLS OF STERILE WATER ASPIRATED FROM BALLOON. TIP INTACT. PATIENT TOLERATED WELL. YARELI CARE PROVIDED AT THIS TIME. DISCHARGE INSTRUCTIONS REVIEWED WITH PATIENT AND DAUGHTER. QUESTIONS SOUGHT AND ANSWERED. PATIENT PERSONAL BELONGINGS GATHERED.
--- NOTE | 2020-01-26 15:23 | NUR ---
PATIENT TAKEN TO PERSONAL VEHICLE VIA WHEELCHAIR BY SURGICAL STAFF. PATIENT DISCHARGED.
== END 2020-01-26 15:23 | disposition home or self-care (01) ==
LOC: SURG 22:07
PROVIDERS: Nurse Practitioner Family; Physician Assistant; ADMIT Student in an Organized Health Care Education/Training Program
DX: K94.23 Gastrostomy malfunction (principal); R10.9 Unspecified abdominal pain; G90.3 Multi-system degeneration of the autonomic nervous system; K31.84 Gastroparesis; I27.20 Pulmonary hypertension, unspecified; I35.0 Nonrheumatic aortic (valve) stenosis; G89.29 Other chronic pain; G43.909 Migraine, unspecified, not intractable, without status migrainosus; R25.1 Tremor, unspecified; E03.9 Hypothyroidism, unspecified; K76.9 Liver disease, unspecified; J84.10 Pulmonary fibrosis, unspecified; J45.909 Unspecified asthma, uncomplicated; R07.9 Chest pain, unspecified; Z88.1 Allergy status to other antibiotic agents; Z79.891 Long term (current) use of opiate analgesic; Z88.5 Allergy status to narcotic agent; Z88.8 Allergy status to other drugs, medicaments and biological substances
CPT/HCPCS: 99232-AI; G0378; J1170; J1644; J2405; J2550; J2704; J3360; J7120

== ENCOUNTER 2020-09-09 11:11 | Emergency (ER) | payer MEDICARE, MEDICAID ==
[~2020-09-09] VITALS: Ht 165.1 cm; Wt 87.3 kg
[~2020-09-09 11:11] MED LIST changes: +PEPCID40 MG PO; +QUDEXY XR200 MG PO; +SYNTHROID0.1 MG/TAB PO; +ZANAFLEX CAPSULE6 MG PO
[2020-09-09 11:30] VITALS: PULSE 84; TEMP 97.9
[2020-09-09 13:50] LABS: BASO % 0.7 % (0.0-2.0); EOS # 0.2 (0.0-0.7); EOS % 2.6 % (0-4.0); GRAN % 51.1 % (42.2-75.2); HEMATOCRIT 44.7 % (37.0-47.0); HEMOGLOBIN 14.9 g/dl (12.5-16.0); LYMPH # 2.1 (1.2-3.4); LYMPH % 35.4 % (20.0-51.0); MEAN CELL VOLUME 84 fl (80.0-100.0); MEAN CORPUSCULAR HEMOGLOBIN 28 pg (27.0-31.0); MEAN CORPUSCULAR HGB CONC 33 g/dl (33.0-37.0); MEAN PLATELET VOLUME 9.2 fl (7.4-10.4); MONO # 0.6 (0.1-0.6); MONO % 9.9 % (1.7-9.3); PLATELET COUNT 212 K/mm3 (130-400); RED BLOOD COUNT 5.32 M/mm3 (4.10-5.30); REDCELL DISTRIBUTION WIDTH-CV 12.9 % (11.5-14.5)
[2020-09-09 14:00] LABS: ALANINE AMINOTRANSFERASE 26 U/L (4-34); ALBUMIN 4.8 gm/dL (3.5-5.0); ALKALINE PHOSPHATASE 80 U/L (50-136); ANION GAP 10 mmol/L (7-16); AST,SGOT 34 U/L (15-37); BILIRUBIN,TOTAL 0.8 mg/dL (0.0-1.0); BLOOD UREA NITROGEN 11 mg/dL (7-17); CARBON DIOXIDE 31 mmol/L (22-30); CHLORIDE 99 mmol/L (98-107); CREATININE, serum 0.95 (0.52-1.25); GLUCOSE 98 mg/dL (74-106); LIPASE 36 U/L (23-300); POTASSIUM 4.3 mmol/L (3.4-5.0); SODIUM 139 mmol/L (137-145); TOTAL PROTEIN 8.1 gm/dL (6.4-8.2)
[2020-09-09 16:29] LABS: COLLECTION METHOD CATHETER
[2020-09-09 16:36] LABS: MUCOUS Present /lpf; PH 5 (5-8); SQUAMOUS EPITHELIAL 0-2 /hpf; URINE APPEARANCE Hazy; URINE BACTERIA Rare /hpf; URINE BILIRUBIN Negative (NEGATIVE); URINE BLOOD Negative (NEGATIVE); URINE COLOR Yellow; URINE GLUCOSE Negative (NEGATIVE); URINE KETONE Negative (NEGATIVE); URINE LEUKOCYTE ESTERASE 2+ (NEGATIVE); URINE NITRATE Negative (NEGATIVE); URINE PROTEIN(semi-quant) Negative (NEGATIVE); URINE RBC 20-50 /hpf; URINE UROBILINOGEN Negative (NEGATIVE)
[2020-09-09 17:48] VITALS: BP 145/116
[2020-09-10 03:16] LABS: C-REACTIVE PROTEIN < 0.5 mg/dL (0.0-0.9)
== END 2020-09-09 17:43 | disposition home or self-care (01) ==
LOC: COL.ER 11:11
PROVIDERS: Nurse Practitioner
DX: R10.9 Unspecified abdominal pain (principal); R19.5 Other fecal abnormalities; G90.3 Multi-system degeneration of the autonomic nervous system; I10 Essential (primary) hypertension; Z88.6 Allergy status to analgesic agent; Z88.1 Allergy status to other antibiotic agents; Z88.8 Allergy status to other drugs, medicaments and biological substances; Z79.51 Long term (current) use of inhaled steroids
CPT/HCPCS: J1170; J7030; Q9967

== ENCOUNTER 2020-09-11 12:00 | Observation (INO) | payer MEDICARE, MEDICAID ==
[2020-09-11 17:22] LABS: BASO % 0.6 % (0.0-2.0); EOS # 0.1 (0.0-0.7); EOS % 1.7 % (0-4.0); GRAN # 2.5 (1.4-6.5); HEMATOCRIT 40.6 % (37.0-47.0); HEMOGLOBIN 13.5 g/dl (12.5-16.0); LYMPH # 1.6 (1.2-3.4); LYMPH % 33.5 % (20.0-51.0); MEAN CELL VOLUME 83 fl (80.0-100.0); MEAN CORPUSCULAR HEMOGLOBIN 27 pg (27.0-31.0); MEAN CORPUSCULAR HGB CONC 33 g/dl (33.0-37.0); MEAN PLATELET VOLUME 8.8 fl (7.4-10.4); MONO # 0.5 (0.1-0.6); PLATELET COUNT 175 K/mm3 (130-400); RED BLOOD COUNT 4.92 M/mm3 (4.10-5.30); REDCELL DISTRIBUTION WIDTH-CV 12.6 % (11.5-14.5)
[2020-09-11 17:33] VITALS: BP 132/77; PULSE 82; TEMP 98.7
[2020-09-11 17:45] LABS: ALBUMIN 4.2 gm/dL (3.5-5.0); BILIRUBIN,TOTAL 0.7 mg/dL (0.0-1.0); CALCIUM 9.7 mg/dL (8.4-10.2); CREATININE, serum 0.71 (0.52-1.25); POTASSIUM 3.9 mmol/L (3.4-5.0); TOTAL PROTEIN 7.1 gm/dL (6.4-8.2)
--- NOTE | 2020-09-11 18:00 | NUR ---
patient direct admitt from GI office, alert/oriented, vital signs stable, 2x assist from wheelchair to bed, reports 10/10 abd pain, she has small amount of blood drainage around PEG sit and reporst recent rectal bleeding, abdomen is soft and BS + plans of EGD and Colonoscopy 2/5, will do bowel prep via PEG tube, heart RRR, lungs CTA/ no resp.difficulty, accessed her PORT with 1" hueber needle, meds/allergies/pharmacy updated and reivewed with patient, notified hospitalist of her arrival
--- NOTE | 2020-09-11 20:15 | NUR ---
Resting in bed. Assessment complete. Lungs clear. Heart sounds normal. Bowels active x4. Pulses present throughout. No edema noted. PAC to right chest flushed without complications. PEG to no residual. Started bowel prep. Given PRN morphine for pain. Denies other needs at this time.
[2020-09-11 20:26] VITALS: BP 117/83; PULSE 79; TEMP 98.5
--- NOTE | 2020-09-11 20:30 | NUR ---
Patient refusing oral valium along with all oral medication. Would like valium IV. Spoke with Pepper LAGOS. Ordered Ativan PRN
[2020-09-12] VITALS (9 sets, daily range): BP systolic 93–114; BP diastolic 59–74; PULSE 75–98; TEMP 97.4–98.3
--- NOTE | 2020-09-12 00:50 | NUR ---
Patient requested PRN phenergan and morphine. Provided to patient at this time. More bowel prep placed in PEG tube. Will monitor.
--- NOTE | 2020-09-12 03:19 | NUR ---
Reports 02/14 ABD pain. Given PRN morphine at this time. Call light in reach.
--- NOTE | 2020-09-12 03:51 | NUR ---
Patient reported 9/10 pain after recent dose of morphine. Asking for dose increase or change to dilaudid. Spoke with Pepper LAGOS. Will add orders.
--- NOTE | 2020-09-12 04:31 | NUR ---
Up to bedside commode. Last amount of bowel prep instilled at 0345. Bowel is not clear at this time. Will continue to monitor.
--- NOTE | 2020-09-12 05:43 | NUR ---
Patient required morphine and a change to dilaudid for pain control during night. Also had nausea requiring x1 dose of phenergan. Patient last 200ml of bowel prep instilled in PEG at 0345. Patient had pain with each amount of bowel prep instilled. Patient stool not clear at this point. Starting to become liquid stool and lighten in color. Sitting on commode currently. Denies needs. Will continue to monitor.
--- NOTE | 2020-09-12 06:10 | NUR ---
Patient rating pain 10/10. Given PRN dilaudid at this time. Call light in reach.
--- NOTE | 2020-09-12 07:00 | NUR ---
Report received from SANA Enamorado. Pt on commode, assisted back to bed, stool is liquid brown at this time. pT requesting pain medication when available, will continue to monitor.
--- NOTE | 2020-09-12 07:28 | NUR ---
Report given to SANA Tang
--- NOTE | 2020-09-12 08:55 | NUR ---
Assessment charted. Pt has portacath to [facility] that flushes well with good blood return. Preoop meds given per orders, PRN pain meds given. PEG tube to ABD looks well, pt refusing any touching or moving eun the PEG tube until after the procedure. Pain is 9/10 to ABD at PEG site, prn pain given. Called Silvia regarding pt request for anesthesia prior to entering OR room d/t PTSD from past surgeries, as well as request ot call daughter, and to switch out PEG tube per pt request with Dr. Fournier. Silvia verbalized understanding, pt taken down in bed via with Doug OR staff. Will continue to monitor and await return.
[2020-09-12] MEDS ORDERED: PROTONIX40 MG/Pack PEG (10:44)
[2020-09-12] MEDS ORDERED: TETRACYCLI500 MG/CAP PEG (10:53)
[2020-09-12] MEDS ORDERED: FLAGYL 250250 MG/TAB PEG (10:54)
[2020-09-12] MEDS ORDERED: [UNRECOGNIZED DRUG - OTHER] PEG (10:56)
--- NOTE | 2020-09-12 11:33 | NUR ---
Instructional Coordinator met with patient to discuss discharge planning. Patient lives in [place] with her daughter, Aimee and her son in law, Emigdio. Patient states her daughter, Aimee is a paid caregiver for her. Patient sees Dr. Bales for primary care and gets her medications from [facility] in . Patient states Aimee picks up her medications for her and that she has no difficulties affording her medications. Patient has a wheelchair and walker at home and reports her daughter, Aimee assists her with ADLS. Patient has DPOA-HC on file which designates Aimee and Emigdio. Patient plans to return home upon discharge. SW attended clinical rounds with the team and patient to discharge today. SW contacted patient's daughter, Aimee who advised she is patient's caregiver and will be here later to picking machine operator patient. No additional needs at this time.
--- NOTE | 2020-09-12 11:53 | NUR ---
I spoke with Dewayne today to inquire how she was doing. She reports that she is tired of being "sick" and thinks she will be ready to start hospice in October after her daughter's honeymoon. She reports that she has been coded and also been on a ventilator since we last talked. I did provide her with information about hospice services. It seems very important to her to stay at home. She presents that her daughter is trying hard to keep her alive but their relationship over this seems to be complicated. She has the number for [facility] if she wishes to discuss this with them at any time.
[2020-09-12] MEDS ORDERED: LEVAQUIN 5500 MG/TA1 PO (12:31)
[2020-09-12] MEDS ORDERED: AMOXICILLIN 50500 MG PO (12:31)
--- NOTE | 2020-09-12 12:59 | NUR ---
PT discharge completed at this [facility]. Deaccessed PAC and heparinized, bandaid applied. Reviewed discharge paperwork, meds, scritps and follow up appointments. Pt verbalized understanding. Left with all belongings, daughter to drive home, escorted downstairs via w/c with medical staff. Criteria met.
== END 2020-09-12 12:30 | disposition home or self-care (01) ==
LOC: EDSTATUS 12:00 → SURG 12:00 → MEDICAL 16:00
PROVIDERS: ADMIT Student in an Organized Health Care Education/Training Program
DX: K59.00 Constipation, unspecified (principal); K92.1 Melena; K64.1 Second degree hemorrhoids; K64.4 Residual hemorrhoidal skin tags; K62.89 Other specified diseases of anus and rectum; K94.23 Gastrostomy malfunction; K31.4 Gastric diverticulum; K29.70 Gastritis, unspecified, without bleeding; I27.20 Pulmonary hypertension, unspecified; J45.909 Unspecified asthma, uncomplicated; G89.29 Other chronic pain; J84.10 Pulmonary fibrosis, unspecified; I35.0 Nonrheumatic aortic (valve) stenosis; G90.3 Multi-system degeneration of the autonomic nervous system; E03.9 Hypothyroidism, unspecified; G43.909 Migraine, unspecified, not intractable, without status migrainosus; K31.84 Gastroparesis; G25.81 Restless legs syndrome; I25.2 Old myocardial infarction; Z88.1 Allergy status to other antibiotic agents; Z88.5 Allergy status to narcotic agent; Z88.8 Allergy status to other drugs, medicaments and biological substances; Z88.6 Allergy status to analgesic agent
CPT/HCPCS: 99239; C9113; G0378; G0379; J1170; J2060; J2270; J2405; J2550; J2704; J7030

== ENCOUNTER 2020-09-14 02:59 | Emergency (ER) | payer MEDICARE, MEDICAID ==
[~2020-09-14] VITALS: Ht 165.1 cm; Wt 87.0 kg
[~2020-09-14 02:59] MED LIST changes: +AMOXICILLIN 50500 MG PO; +FLAGYL 250250 MG/TAB PEG; +LEVAQUIN 5500 MG/TA1 PO; +PROTONIX40 MG/Pack PEG; +TETRACYCLI500 MG/CAP PEG; +[UNRECOGNIZED DRUG - OTHER] PEG
[2020-09-14 03:03] VITALS: TEMP 98.1
[2020-09-14 05:04] VITALS: BP 122/86; PULSE 85
== END 2020-09-14 05:16 | disposition home or self-care (01) ==
LOC: COL.ER 02:59
DX: K94.23 Gastrostomy malfunction (principal); I27.20 Pulmonary hypertension, unspecified; J45.909 Unspecified asthma, uncomplicated; Z90.710 Acquired absence of both cervix and uterus; Z90.89 Acquired absence of other organs; Z88.1 Allergy status to other antibiotic agents; Z88.5 Allergy status to narcotic agent; Z88.6 Allergy status to analgesic agent; Z88.8 Allergy status to other drugs, medicaments and biological substances; Z79.51 Long term (current) use of inhaled steroids; Z79.890 Hormone replacement therapy
CPT/HCPCS: J2270

== ENCOUNTER 2020-12-03 17:30 | Emergency (ER) | payer MEDICARE, MEDICAID ==
[~2020-12-03] VITALS: Ht 165.1 cm; Wt 88.6 kg
[2020-12-03 17:40] VITALS: TEMP 98
[2020-12-03 21:18] VITALS: BP 137/85; PULSE 85
== END 2020-12-03 21:15 | disposition home or self-care (01) ==
LOC: COL.ER 17:30
DX: K94.20 Gastrostomy complication, unspecified (principal); K94.23 Gastrostomy malfunction; G90.3 Multi-system degeneration of the autonomic nervous system; F41.9 Anxiety disorder, unspecified; I27.20 Pulmonary hypertension, unspecified; K21.9 Gastro-esophageal reflux disease without esophagitis; F32.9 Major depressive disorder, single episode, unspecified; J45.909 Unspecified asthma, uncomplicated; G40.909 Epilepsy, unspecified, not intractable, without status epilepticus; G89.29 Other chronic pain; Z90.89 Acquired absence of other organs; Z90.710 Acquired absence of both cervix and uterus; Z88.1 Allergy status to other antibiotic agents; Z88.5 Allergy status to narcotic agent; Z88.6 Allergy status to analgesic agent; Z88.8 Allergy status to other drugs, medicaments and biological substances; Z79.51 Long term (current) use of inhaled steroids; Z79.899 Other long term (current) drug therapy; Z79.890 Hormone replacement therapy; Z87.19 Personal history of other diseases of the digestive system; Z79.891 Long term (current) use of opiate analgesic
CPT/HCPCS: J2270; J2550; J2704; J7030

== ENCOUNTER → 2020-12-30 | Outpatient (CLI) | payer MEDICARE, MEDICAID ==
[~2020-12-30] MED LIST changes: +CELEXA 20MG20 MG/TAB PO; +CYMBALTA 20MG20 MG PO; +EFFER-K20 MEQ PEG; +K-TAB10 PEG; +KADIAN30 MG PO; +KEPPRA 500MG500 MG PO; +MIRALAX PA17 GM/Dose PEG; +OMNICEF 300MG300 MG PO; +PLAVIX 75MG TAB75 MG PO; +URECHOLINE PO
== END ==
LOC: COL.RAD 09:15
DX: M79.671 Pain in right foot (principal)
CPT/HCPCS: A9503

== ENCOUNTER 2021-03-04 13:28 | Inpatient (IN) | payer MEDICARE, MEDICAID ==
[2021-03-04] VITALS (125 sets, daily range): BP systolic 126–144; BP diastolic 89–108; PULSE 69–91; TEMP 99.2–99.4; O2SAT 98–100
[~2021-03-04] VITALS: Ht 167.6 cm; Wt 93.0 kg
[~2021-03-04 13:28] MED LIST changes: -CELEXA 20MG20 MG/TAB PO; -CYMBALTA 20MG20 MG PO; -EFFER-K20 MEQ PEG; -K-TAB10 PEG; -KADIAN30 MG PO; -KEPPRA 500MG500 MG PO; -MIRALAX PA17 GM/Dose PEG; -OMNICEF 300MG300 MG PO; -PLAVIX 75MG TAB75 MG PO; -URECHOLINE PO
--- NOTE | 2021-03-04 13:52 | NUR ---
supervisor cemetery workers contacted patient's daughter, Aimee Miller [phone] and confirmed patient's name and date of as patient was brought in as [place] by EMS. Aimee confirmed that she will come to the hospital. Worker secured patient's durable power of deputy attorney general for health care, that names patient's daughter and son in law, and living will and placed them on the chart. Patient will be intubated in the ED. Worker collaborated with nursing regarding the above information.
[2021-03-04 14:11] LABS: BASO % 0.6 % (0.0-2.0); EOS # 0.1 (0.0-0.7); EOS % 2.3 % (0-4.0); GRAN # 2.4 (1.4-6.5); GRAN % 45.7 % (42.2-75.2); HEMATOCRIT 39.5 % (37.0-47.0); HEMOGLOBIN 12.7 g/dl (12.5-16.0); LYMPH # 2.2 (1.2-3.4); LYMPH % 40.6 % (20.0-51.0); MEAN CELL VOLUME 85 fl (80.0-100.0); MEAN CORPUSCULAR HEMOGLOBIN 27 pg (27.0-31.0); MEAN CORPUSCULAR HGB CONC 32 g/dl (33.0-37.0); MEAN PLATELET VOLUME 9.3 fl (7.4-10.4); MONO # 0.5 (0.1-0.6); MONO % 10.2 % (1.7-9.3); PLATELET COUNT 226 K/mm3 (130-400); RED BLOOD COUNT 4.64 M/mm3 (4.10-5.30); REDCELL DISTRIBUTION WIDTH-CV 13.5 % (11.5-14.5)
[2021-03-04 14:22] LABS: ALBUMIN 4.4 gm/dL (3.5-5.0); BILIRUBIN,TOTAL 0.4 mg/dL (0.0-1.0); CALCIUM 8.8 mg/dL (8.4-10.2); CREATININE, serum 0.79 (0.52-1.25); TOTAL PROTEIN 7.2 gm/dL (6.4-8.2)
[2021-03-04 14:58] LABS: COLLECTION METHOD CLEAN CATCH
[2021-03-04 15:41] LABS: MUCOUS Present /lpf; PH 6 (5-8); SQUAMOUS EPITHELIAL 0-2 /hpf; URINE APPEARANCE Hazy; URINE BACTERIA Rare /hpf; URINE BILIRUBIN Negative (NEGATIVE); URINE BLOOD 1+ (NEGATIVE); URINE COLOR Yellow; URINE GLUCOSE Negative (NEGATIVE); URINE KETONE Negative (NEGATIVE); URINE LEUKOCYTE ESTERASE 3+ (NEGATIVE); URINE NITRATE Negative (NEGATIVE); URINE PROTEIN(semi-quant) Negative (NEGATIVE); URINE UROBILINOGEN Negative (NEGATIVE)
[2021-03-04 18:31] LABS: C-REACTIVE PROTEIN 0.9 mg/dL (0.0-0.9); MAGNESIUM 1.8 mg/dL (1.6-2.3); PHOSPHOROUS 1.7 mg/dL (2.5-4.5)
[2021-03-04 19:24] LABS: THYROID STIMULATING HORMONE 1.65 uIU/mL (0.465-4.680)
[2021-03-04] MEDS ORDERED: K-TAB10 PEG (19:32)
[2021-03-04] MEDS ORDERED: MIRALAX PA17 GM/Dose PEG (19:33)
[2021-03-04] MEDS ORDERED: CELEXA 20MG20 MG/TAB PO (19:39)
[2021-03-04] MEDS ORDERED: URECHOLINE PO (19:39)
[2021-03-04] MEDS ORDERED: ZANAFLEX CAPSULE2 MG PO (19:42)
[2021-03-04] MEDS ORDERED: RT ADVAIR 228 DISKUS IH (19:43)
[2021-03-04] MEDS ORDERED: QUDEXY XR200 MG PO (19:43)
[2021-03-04] MEDS ORDERED: LASIX 40MG TABL40 MG PO (19:46)
[2021-03-04] MEDS ORDERED: PHENERGAN25 MG RC (19:51)
--- NOTE | 2021-03-04 20:00 | NUR ---
PT ARRIVED TO ICU AT 1930. ASSESSMENT COMPLETED. VITAL SIGNS STABLE. PATIENT IS WIDE AWAKE AT THIS TIME. PROPOFOL RUNNING. ADDING FENTANYL AND DISCUSSING SEDATION WT HOSPITALIST. DURING ASSESSMENT - PATIENT HAS PEG TUBE FROM PRIOR TO ADMISSION DUE TO DIFFICULTY SWALLOWING IN THE PAST. PETG TUBE SITE CDI AT THIS TIME.
[2021-03-04 20:34] LABS: ARTERIAL BLD GAS O2 SATURATION 98.3 % (92-100); ARTERIAL BLD GAS TCO2 CT 25.4; ARTERIAL BLOOD GAS BASE EXCESS 3.8 (-2-2); ARTERIAL BLOOD GAS HCO3 24.6 meq/L (22-26); ARTERIAL BLOOD GAS PCO2 26.8 mmHg (35-45); ARTERIAL BLOOD GAS PO2 100.9 mmHg (80-100); ARTERIAL BLOOD GAS pH 7.58 (7.35-7.45)
[2021-03-04 22:58] LABS: ARTERIAL BLD GAS O2 SATURATION 98.1 % (92-100); ARTERIAL BLD GAS TCO2 CT 25.6; ARTERIAL BLOOD GAS BASE EXCESS 2.5 (-2-2); ARTERIAL BLOOD GAS HCO3 24.7 meq/L (22-26); ARTERIAL BLOOD GAS PCO2 30.9 mmHg (35-45); ARTERIAL BLOOD GAS PO2 104.2 mmHg (80-100); ARTERIAL BLOOD GAS pH 7.52 (7.35-7.45)
[2021-03-05] VITALS (721 sets, daily range): BP systolic 99–126; BP diastolic 65–89; PULSE 78–100; TEMP 98.2–99.2; O2SAT 95–100
[2021-03-05 04:42] LABS: ARTERIAL BLD GAS O2 SATURATION 97.8 % (92-100); ARTERIAL BLD GAS TCO2 CT 26.8; ARTERIAL BLOOD GAS BASE EXCESS 2.6 (-2-2); ARTERIAL BLOOD GAS HCO3 25.8 meq/L (22-26); ARTERIAL BLOOD GAS PO2 101.5 mmHg (80-100); ARTERIAL BLOOD GAS pH 7.49 (7.35-7.45)
[2021-03-05 06:49] LABS: BASO % 0.5 % (0.0-2.0); EOS # 0.2 (0.0-0.7); EOS % 2.4 % (0-4.0); GRAN # 3.3 (1.4-6.5); GRAN % 52.8 % (42.2-75.2); HEMOGLOBIN 11.7 g/dl (12.5-16.0); MEAN CELL VOLUME 85 fl (80.0-100.0); MEAN CORPUSCULAR HEMOGLOBIN 28 pg (27.0-31.0); MEAN CORPUSCULAR HGB CONC 33 g/dl (33.0-37.0); MONO # 0.8 (0.1-0.6); MONO % 12.1 % (1.7-9.3); PLATELET COUNT 198 K/mm3 (130-400); RED BLOOD COUNT 4.22 M/mm3 (4.10-5.30); REDCELL DISTRIBUTION WIDTH-CV 13.7 % (11.5-14.5)
[2021-03-05 06:52] LABS: HEMATOCRIT 35.8 % (37.0-47.0)
[2021-03-05 06:59] LABS: CALCIUM 8.5 mg/dL (8.4-10.2); CREATININE, serum 0.74 (0.52-1.25); MAGNESIUM 2.1 mg/dL (1.6-2.3); PHOSPHOROUS 4.5 mg/dL (2.5-4.5)
--- NOTE | 2021-03-05 08:19 | NUR ---
SPOKE WITH ANDI BUSTILLO (DAUGHTER) ON THE PHONE THIS MORNING AND GAVE AN UPDATE ON HOW THE NIGHT WENT. QUESTIONS ANSWERED. SHE PLANS TO COME BE WITH HER MOM THIS MORNING WHILE THE HOSPITALIST AND ASH PIT WORKER ROUND.
--- NOTE | 2021-03-05 12:45 | NUR ---
I spoke with daughter of the pt, Aimee, who is also the DPOA due to pt remaining on the Vent. Pt lives with her daughter Aimee and Aimee's . Current DPOA is on the hard copy chart. There are no steps at home for the pt to navigate. Pt currently uses a Walker/Wheelchair and Shower Chair at home with the assistance of her daughter. Pt received Covid vaccine in December which resulted in a previous hospitalization. Her primary care physician is Dr Bridget Bales. She also sees Dr. Presley for pain management. Pt obtains her medications at the [facility]. She does not have difficulty in obtaining medications. Pt is admitted for Respiratory Distress.
[2021-03-05 12:58] LABS: ARTERIAL BLD GAS O2 SATURATION 96.8 % (92-100); ARTERIAL BLOOD GAS BASE EXCESS 0.6 (-2-2); ARTERIAL BLOOD GAS HCO3 24.8 meq/L (22-26); ARTERIAL BLOOD GAS PCO2 38.2 mmHg (35-45); ARTERIAL BLOOD GAS PO2 87.2 mmHg (80-100); ARTERIAL BLOOD GAS pH 7.43 (7.35-7.45)
--- NOTE | 2021-03-05 20:30 | NUR ---
SPOKE WITH HAILE (DAUGHTER) AND GAVE UPDATE. ANSWERED QUESTIONS.
[2021-03-06] VITALS (929 sets, daily range): BP systolic 90–125; BP diastolic 67–88; PULSE 76–111; TEMP 97.8–99.4; O2SAT 83–100
[2021-03-06 05:01] LABS: BASO % 0.5 % (0.0-2.0); EOS # 0.2 (0.0-0.7); EOS % 3.1 % (0-4.0); GRAN # 3.8 (1.4-6.5); GRAN % 61.7 % (42.2-75.2); HEMOGLOBIN 10.8 g/dl (12.5-16.0); LYMPH # 1.4 (1.2-3.4); LYMPH % 23.1 % (20.0-51.0); MEAN CELL VOLUME 87 fl (80.0-100.0); MEAN CORPUSCULAR HEMOGLOBIN 28 pg (27.0-31.0); MEAN CORPUSCULAR HGB CONC 32 g/dl (33.0-37.0); MEAN PLATELET VOLUME 9.2 fl (7.4-10.4); MONO # 0.7 (0.1-0.6); MONO % 11.3 % (1.7-9.3); PLATELET COUNT 158 K/mm3 (130-400); RED BLOOD COUNT 3.93 M/mm3 (4.10-5.30)
[2021-03-06 05:10] LABS: CALCIUM 8.5 mg/dL (8.4-10.2); CREATININE, serum 0.73 (0.52-1.25); PHOSPHOROUS 4.8 mg/dL (2.5-4.5); POTASSIUM 3.7 mmol/L (3.4-5.0)
[2021-03-06 05:18] LABS: HEMATOCRIT 34.3 % (37.0-47.0)
--- NOTE | 2021-03-06 06:00 | NUR ---
BATH GIVEN WITH REDUCED SEDATION. TURNED OFF SEDATION COMPLETELY AT 0545. WEANING TRIAL STARTED SHORTLY AFTER THAT. PATIENT SLEEPY, BUT FOLLOWS COMMAND AND IS AWAKE
[2021-03-06 08:32] LABS: ARTERIAL BLD GAS TCO2 CT 21.8; ARTERIAL BLOOD GAS BASE EXCESS 0.6 (-2-2); ARTERIAL BLOOD GAS PCO2 24.2 mmHg (35-45); ARTERIAL BLOOD GAS pH 7.56 (7.35-7.45)
--- NOTE | 2021-03-06 12:15 | NUR ---
Patient extubated at this time. Dr. Khalil at bedside. Oral care performed s/p extubation. Patient provided with suction yankauer due to productive cough. Denies pain or SOB. VSS.
--- NOTE | 2021-03-06 12:25 | NUR ---
RT at bedside for EEG.
[2021-03-07] VITALS (646 sets, daily range): BP systolic 102–120; BP diastolic 64–77; PULSE 61–90; TEMP 97.4–98.4; O2SAT 86–100
[2021-03-07 06:01] LABS: BASO % 0.6 % (0.0-2.0); EOS # 0.2 (0.0-0.7); EOS % 4.8 % (0-4.0); GRAN % 60.9 % (42.2-75.2); LYMPH # 1.1 (1.2-3.4); LYMPH % 22.1 % (20.0-51.0); MEAN CELL VOLUME 89 fl (80.0-100.0); MEAN CORPUSCULAR HEMOGLOBIN 28 pg (27.0-31.0); MEAN CORPUSCULAR HGB CONC 31 g/dl (33.0-37.0); MEAN PLATELET VOLUME 9.3 fl (7.4-10.4); MONO # 0.5 (0.1-0.6); MONO % 11.2 % (1.7-9.3); PLATELET COUNT 136 K/mm3 (130-400); RED BLOOD COUNT 3.97 M/mm3 (4.10-5.30); REDCELL DISTRIBUTION WIDTH-CV 13.5 % (11.5-14.5)
[2021-03-07 06:04] LABS: HEMATOCRIT 35.5 % (37.0-47.0)
[2021-03-07 06:13] LABS: CALCIUM 8.5 mg/dL (8.4-10.2); CREATININE, serum 0.57 (0.52-1.25); MAGNESIUM 2.2 mg/dL (1.6-2.3); POTASSIUM 3.9 mmol/L (3.4-5.0)
--- NOTE | 2021-03-07 06:33 | NUR ---
slept throughout hs, easy to wake, VS stable, tolerating tube feeding w/o issue, [place] draining to gravity w/o issue, repositioned q 2 hours, denies pain, updated on plan of care.
--- NOTE | 2021-03-07 07:00 | NUR ---
PT RESTING IN BED. VSS. PT HAS TUBE FEED GOING THRU PEG. WILL CONTINUE TO MONTIOR.
--- NOTE | 2021-03-07 09:51 | NUR ---
PT COMPLAINS OF ITCHING AND REDNESS TO RIGHT UPPER ARM. AREA REDDENED AND RAISED SLIGHLY. SITE MARKED. AND MADE AWARE. WILL CONTINUE TO MONITOR.
--- NOTE | 2021-03-07 11:44 | NUR ---
1110-report called to mariah hood. All questions answered. 1140- Pt trasfered to wheelchair and transported to room 315. Pt transfered to new bed. Pt given call light and bed alarm active. Mariah HOOD called and notified of arrival.
--- NOTE | 2021-03-07 18:25 | NUR ---
Patient arrived from the ICU at approx. 1145. Patient has been very emotional and worries that she will pass before her granddaughter is born. Patient also worried about medications not being correct. This RN notified the hospitalist and hospitalist spoke with the patient. Patient stated, "If I don't get my valium and propanolol, I will start flopping on this floor". Continuous feedings are running through the patient's PEG. Patient has received PRN fentanyl x2.
[2021-03-08 00:02] VITALS: BP 94/63; PULSE 76; TEMP 98
[2021-03-08 02:49] VITALS: BP 100/68; PULSE 86; TEMP 98
[2021-03-08 08:08] VITALS: BP 120/80; PULSE 79; TEMP 98.6
[2021-03-08] MEDS ORDERED: PHENERGAN 25 TA25 MG PO (10:03)
[2021-03-08] MEDS ORDERED: OMNICEF 300MG300 MG PO (10:04)
[2021-03-08] MEDS ORDERED: KEPPRA 500MG500 MG PO (10:07)
--- NOTE | 2021-03-08 11:59 | NUR ---
Patient's port was deaccessed and heparin locked. Ortiz was removed. Patient was assisted out of the building by this RN. Patient had no complaints this morning or at the time of discharge.
== END 2021-03-08 11:50 | disposition home or self-care (01) | DRG 208 ==
LOC: COL.ER → EDBD 13:28 → ICU 16:49 → MEDICAL 16:49 → ICU 03-07 09:06 → MEDICAL 03-08 11:50
PROVIDERS: Family Medicine; Internal Medicine Pulmonary Disease; Nurse Practitioner Family; Personal Emergency Response Attendant; ADMIT Internal Medicine
PROC: 0BH17EZ Insertion of Endotracheal Airway into Trachea, Via Natural or Artificial Opening (ICD-10-PCS; principal; 2021-03-04)
PROC: 5A1945Z Respiratory Ventilation, 24-96 Consecutive Hours (ICD-10-PCS; 2021-03-04)
PROC: 5A09357 Assistance with Respiratory Ventilation, Less than 24 Consecutive Hours, Continuous Positive Airway Pressure (ICD-10-PCS; 2021-03-06)
DX: J96.00 Acute respiratory failure, unspecified whether with hypoxia or hypercapnia (principal); G90.3 Multi-system degeneration of the autonomic nervous system; N39.0 Urinary tract infection, site not specified; J81.1 Chronic pulmonary edema; E03.9 Hypothyroidism, unspecified; J38.00 Paralysis of vocal cords and larynx, unspecified; I27.20 Pulmonary hypertension, unspecified; K31.84 Gastroparesis; J84.10 Pulmonary fibrosis, unspecified; Z20.822 Contact with and (suspected) exposure to COVID-19; I25.2 Old myocardial infarction; G40.909 Epilepsy, unspecified, not intractable, without status epilepticus; E83.42 Hypomagnesemia; E87.6 Hypokalemia; E83.39 Other disorders of phosphorus metabolism; G25.81 Restless legs syndrome; G43.909 Migraine, unspecified, not intractable, without status migrainosus; G47.00 Insomnia, unspecified; Z79.891 Long term (current) use of opiate analgesic; Z88.6 Allergy status to analgesic agent; Z88.1 Allergy status to other antibiotic agents
CPT/HCPCS: 99223-AI; 99232-AI; 99233-AI; 99239; J0456; J0696; J1644; J1650; J1953; J2060; J2250; J2405; J2704; J3010; J3475; J3480; J7030; J7050; J7120; Q9967

== ENCOUNTER 2021-05-14 05:54 | Inpatient (IN) | payer MEDICARE, MEDICAID ==
[2021-05-14] VITALS (383 sets, daily range): BP systolic 11–1368; BP diastolic 30–80; PULSE 50–61; TEMP 97.7–98.4; O2SAT 90–100
[~2021-05-14] VITALS: Ht 162.6 cm; Wt 89.1 kg
[~2021-05-14 05:54] MED LIST changes: +CELEXA 20MG20 MG/TAB PO; +K-TAB10 PEG; +KEPPRA 500MG500 MG PO; +MIRALAX PA17 GM/Dose PEG; +OMNICEF 300MG300 MG PO; +URECHOLINE PO
[2021-05-14 07:31] LABS: BASO # 0.1 K/mm3 (0.0-0.2); BASO % 0.9 % (0.0-2.0); EOS % 0.7 % (0-4.0); GRAN # 4.4 K/mm3 (1.4-6.5); HEMATOCRIT 39.2 % (37.0-47.0); HEMOGLOBIN 13.4 g/dl (12.5-16.0); LYMPH # 0.9 K/mm3 (1.2-3.4); LYMPH % 15.8 % (20.0-51.0); MEAN CELL VOLUME 82 fl (80.0-100.0); MEAN CORPUSCULAR HEMOGLOBIN 28 pg (27.0-31.0); MEAN CORPUSCULAR HGB CONC 34 g/dl (33.0-37.0); MEAN PLATELET VOLUME 8.8 fl (7.4-10.4); MONO # 0.3 K/mm3 (0.1-0.6); MONO % 5.9 % (1.7-9.3); PLATELET COUNT 208 K/mm3 (130-400); RED BLOOD COUNT 4.77 M/mm3 (4.10-5.30); REDCELL DISTRIBUTION WIDTH-CV 12.7 % (11.5-14.5)
[2021-05-14 07:48] LABS: ALBUMIN 3.8 gm/dL (3.5-5.0); BILIRUBIN,TOTAL 0.4 mg/dL (0.2-1.2); CALCIUM 9.4 mg/dL (8.4-10.2); CREATININE, serum 0.82 mg/dL (0.57-1.11); POTASSIUM 3.4 mmol/L (3.5-4.5); TOTAL PROTEIN 6.8 gm/dL (6.2-8.1)
--- NOTE | 2021-05-14 10:56 | NUR ---
PT STATES SHE GAVE HER LIST OF MEDICATIONS FOR PATIENT TO EMS. ER NURSE IS TRYING TO LOCATE SO THAT MEDICATIN RECONCILIATION MAY BE COMPLETED.
[2021-05-14 10:57] LABS: ARTERIAL BLD GAS O2 SATURATION 97.9 % (92-100); ARTERIAL BLD GAS TCO2 CT 22.4; ARTERIAL BLOOD GAS BASE EXCESS 2.4 (-2-2); ARTERIAL BLOOD GAS HCO3 21.7 meq/L (22-26); ARTERIAL BLOOD GAS PO2 94.3 mmHg (80-100)
[2021-05-14 10:58] LABS: ARTERIAL BLOOD GAS PCO2 21.2 mmHg (35-45); ARTERIAL BLOOD GAS pH 7.63 (7.35-7.45)
[2021-05-14] MEDS ORDERED: INDERAL 10MG10 MG PO (12:20)
--- NOTE | 2021-05-14 13:28 | NUR ---
Other Spatial Scientist is unable to meet with patient and contacted daughter, Saundra Pierson at [phone], to discuss discharge plan. Dtr states that she lives with her mother and assists her in the home. Patient has a Life Alert, wheelchair, shower chair, and walker, but no oxygen needs at home. Daughter reports that patient receives her medicaions from the [facility] in [place], although they live in [place]. PCP was confirmed as Dr Bales. OLIVAA is listed as Roberto Andrews Sr in chart, but dtr states that is patient's dad and he has passed. Saundra states she is supposed to be patient's MPOA so this worker informed her we can do that at the hospital but will need to wait until patient is alert and oriented. SW will continue to follow with patient needs for discharge.
[2021-05-14 14:02] LABS: ARTERIAL BLD GAS O2 SATURATION 97.2 % (92-100); ARTERIAL BLD GAS TCO2 CT 24.1; ARTERIAL BLOOD GAS BASE EXCESS 1.5 (-2-2); ARTERIAL BLOOD GAS HCO3 23.2 meq/L (22-26); ARTERIAL BLOOD GAS PCO2 28.3 mmHg (35-45); ARTERIAL BLOOD GAS PO2 87.5 mmHg (80-100); ARTERIAL BLOOD GAS pH 7.53 (7.35-7.45)
--- NOTE | 2021-05-14 18:24 | NUR ---
CURRENTLY DECREASING PT SEDATION PER TITRATION PROTOCOL. TOLERATING VENT WELL. PEG TUBE BEING USED TO GIVE MEDS, OG TUBE IN PLACE BUT CLAMPED. PASSIVE ROM PERFORMED AND CATHETER CARE.
--- NOTE | 2021-05-14 21:01 | NUR ---
spoke with Pepper Arellano APRN regarding patient sedation and soft blood pressures, additional order given for home trazadone and ambien, with plan to space them out to decrease cummulative effect on b/p also discussed giving already scheduled home medications with ok to administer them as ordered
[2021-05-14 21:04] LABS: ARTERIAL BLD GAS O2 SATURATION 57.5 % (92-100); ARTERIAL BLD GAS TCO2 CT 26.4; ARTERIAL BLOOD GAS BASE EXCESS 1.9 (-2-2); ARTERIAL BLOOD GAS HCO3 25.3 meq/L (22-26); ARTERIAL BLOOD GAS PCO2 35.6 mmHg (35-45); ARTERIAL BLOOD GAS pH 7.47 (7.35-7.45)
--- NOTE | 2021-05-14 21:26 | NUR ---
2100 ABG RESULTS WERE RELAYED TO DR. SANCHEZ, HE REQUESTED REPEAT ABG IN THE MORNING AND A VT CHANGE TO 350 AT THIS TIME
[2021-05-15] VITALS (610 sets, daily range): BP systolic 80–169; BP diastolic 36–96; PULSE 50–115; TEMP 37.4; O2SAT 70–100
--- NOTE | 2021-05-15 00:15 | NUR ---
NOTED PATIENT AXILLARY TEMP WITH LOW READING IN THE 94 DEGREE RANGE OBTAINED TEMPORAL TEMP WITH READING 96.4, PLACE RECTAL TEMP PROBE WITH INITIAL TEMP OF 34.5 APPLIED MARGARITA HUGGER AND WILL CONTINUE TO MONITOR
[2021-05-15 00:17] LABS: ARTERIAL BLOOD GAS PO2 30.2 mmHg (80-100)
--- NOTE | 2021-05-15 01:48 | NUR ---
called and spoke with Kelsea from [email or web address], updated on patient diagnosis and condition and current hypotension, bradycardia, and hypothermia with all interventions that have been initiated and that levophed was going to be started next stated that she will pass information on to Ladonna Jarrett and for case
--- NOTE | 2021-05-15 02:30 | NUR ---
PATIENT INTITATED ON LEVOPHED PER ORDERS AT 0.1 MCG/KG/MIN B/P RECYCLED AND NOTED INCREASE TO 165/96 TITRATION STARTED THEN ALARM FOR BRADYCARDIA OF 38 BPM WITH BBB NOTED EVERY OTHER BEAT NOTIFIED A DEMOND OWENS WITH ORDER TO OBTAIN EKG HOWEVER BY THE TIME EKG OBTAINED PATIENT HAS RESUMED TO NORMAL RHYTHM
[2021-05-15 05:46] LABS: BASO % 0.3 % (0.0-2.0); EOS # 0.1 K/mm3 (0.0-0.7); EOS % 1.5 % (0-4.0); GRAN # 6.7 K/mm3 (1.4-6.5); HEMATOCRIT 37.6 % (37.0-47.0); HEMOGLOBIN 12.3 g/dl (12.5-16.0); LYMPH # 1.3 K/mm3 (1.2-3.4); LYMPH % 14.4 % (20.0-51.0); MEAN CELL VOLUME 85 fl (80.0-100.0); MEAN CORPUSCULAR HEMOGLOBIN 28 pg (27.0-31.0); MEAN CORPUSCULAR HGB CONC 33 g/dl (33.0-37.0); MEAN PLATELET VOLUME 9.1 fl (7.4-10.4); MONO % 10.4 % (1.7-9.3); PLATELET COUNT 219 K/mm3 (130-400); RED BLOOD COUNT 4.44 M/mm3 (4.10-5.30); REDCELL DISTRIBUTION WIDTH-CV 13.2 % (11.5-14.5)
[2021-05-15 06:03] LABS: CALCIUM 8.8 mg/dL (8.4-10.2); CREATININE, serum 0.84 mg/dL (0.57-1.11); MAGNESIUM 1.9 mg/dL (1.6-2.6); PHOSPHOROUS 4.2 mg/dL (2.3-4.7); POTASSIUM 3.5 mmol/L (3.5-4.5)
--- NOTE | 2021-05-15 06:42 | NUR ---
PATIENT REQUESTING TO BE "PUT TO SLEEP" EXPLAINED REASON FOR NOT INCREASING SEDATION EARLIER PATIENT INDICATED UNDERSTANDING, PATIENT SEDATION INCREASED UNTIL PATIENT RESTING WITH EYES CLOSED
--- NOTE | 2021-05-15 09:30 | NUR ---
Pt awake, alert and oriented - pt able to communicate by writing. Pt stating: "I want to be a DNR. I want to go hospice but my daughter is , I only have one other grandchild; a 3yr old boy. My daughters dont want me to go hospice. I do not want a trach" MD Remi present during this communication Pt also stating vocal chords feel the same as they did when she came in to the hospital" which required her to be intubated. MD Remi informed pt we will attempt another weaning trial/sedation vacation tomorrow. Pt okay with new plan.
--- NOTE | 2021-05-15 09:56 | NUR ---
Initial visit attempt; Nurse and Physican with patient. Clinic Lead left card offering God's blessings to let Dewayne know of the availability of spiritual care in the ICU.
[2021-05-15 10:46] LABS: ARTERIAL BLD GAS O2 SATURATION 86.8 % (92-100); ARTERIAL BLD GAS TCO2 CT 23.1; ARTERIAL BLOOD GAS BASE EXCESS 0.3 (-2-2); ARTERIAL BLOOD GAS HCO3 22.2 meq/L (22-26); ARTERIAL BLOOD GAS PCO2 28.4 mmHg (35-45); ARTERIAL BLOOD GAS PO2 48.2 mmHg (80-100); ARTERIAL BLOOD GAS pH 7.51 (7.35-7.45)
[2021-05-16] VITALS (635 sets, daily range): BP systolic 79–157; BP diastolic 52–94; PULSE 45–60; TEMP 95.7–98.9; O2SAT 83–100
[2021-05-16 04:30] LABS: BASO % 0.5 % (0.0-2.0); EOS # 0.3 K/mm3 (0.0-0.7); EOS % 5.1 % (0-4.0); GRAN # 3.2 K/mm3 (1.4-6.5); GRAN % 59.3 % (42.2-75.2); HEMOGLOBIN 11.4 g/dl (12.5-16.0); LYMPH # 1.3 K/mm3 (1.2-3.4); LYMPH % 24.3 % (20.0-51.0); MEAN CELL VOLUME 84 fl (80.0-100.0); MEAN CORPUSCULAR HEMOGLOBIN 28 pg (27.0-31.0); MEAN CORPUSCULAR HGB CONC 33 g/dl (33.0-37.0); MEAN PLATELET VOLUME 9.3 fl (7.4-10.4); MONO # 0.6 K/mm3 (0.1-0.6); MONO % 10.4 % (1.7-9.3); PLATELET COUNT 142 K/mm3 (130-400); RED BLOOD COUNT 4.14 M/mm3 (4.10-5.30); REDCELL DISTRIBUTION WIDTH-CV 12.9 % (11.5-14.5)
[2021-05-16 04:38] LABS: CALCIUM 8.7 mg/dL (8.4-10.2); POTASSIUM 4.2 mmol/L (3.5-4.5)
[2021-05-16 04:39] LABS: ARTERIAL BLD GAS O2 SATURATION 97.8 % (92-100); ARTERIAL BLD GAS TCO2 CT 25.8; ARTERIAL BLOOD GAS BASE EXCESS -0.4 (-2-2); ARTERIAL BLOOD GAS HCO3 24.6 meq/L (22-26); ARTERIAL BLOOD GAS PCO2 41.6 mmHg (35-45); ARTERIAL BLOOD GAS PO2 109.5 mmHg (80-100); ARTERIAL BLOOD GAS pH 7.39 (7.35-7.45)
[2021-05-16 04:44] LABS: HEMATOCRIT 34.7 % (37.0-47.0)
[2021-05-16 05:02] LABS: CREATININE, serum 0.75 mg/dL (0.57-1.11); MAGNESIUM 1.9 mg/dL (1.6-2.6); PHOSPHOROUS 4.8 mg/dL (2.3-4.7)
--- NOTE | 2021-05-16 06:42 | NUR ---
PATIENT SEDATION TITRATED DOWN TO WHERE PATIENT WAS ABLE TO OPEN EYES AND ANDSWER YES/NO QUESTIONS BY NODDING OR SHAKING HEAD APPROPRIATELY, PATIENT PREVIOUSLY NOTED TO BE DIFFICULT TO SEDATE
--- NOTE | 2021-05-16 09:04 | NUR ---
Sedation held for weaning trial. MD Remi in room
--- NOTE | 2021-05-16 11:00 | NUR ---
Sedation resumed at ordered rate/dose per MD Remi at bedside
--- NOTE | 2021-05-16 11:00 | NUR ---
1100: Seizure like activity noted. MD Remi on unit, notified and pt assessed. Ativan given and prolactin ordered. Sedation resumed at previous rate per MD Remi 1105: MD Bro notified of consult 1115: rapid arrhythmia noted, EKG ordered and RT Crystal notified - vitals taken - BP stable. 1116 arrhythmia/artifact stopped - CrystalRT here for EKG - EKG not obtained as rhythm is at baseline 1125: seizure activity remains, however pt is also alert and able to nonverbally communicate - pt instructed blood sample required d/t seizure like activity - at that time pt became quite aggitated and nonverbally stating she does not want blood sample taken and making attempts to self extubate. Sedation increased with bolus ordered by MD Remi 1128: prolactin, CK and TnI obtained and sent to lab 1135: MD Bro in room 1141: RASS: -3, vitals stable/baseline-(pre-event)
[2021-05-16 11:49] LABS: CREATINE KINASE 47 U/L (29-168)
[2021-05-16 12:11] LABS: TROPONIN-I < 0.010 ng/mL (0.00-0.033)
--- NOTE | 2021-05-16 13:00 | NUR ---
Pt's daughter Angelita here visiting. Updated on events. Family meeting requested with MD Remi for Tuesday, time to be determined
[2021-05-17] VITALS (580 sets, daily range): BP systolic 82–1580; BP diastolic 10–100; PULSE 55–81; TEMP 97.7–99.5; O2SAT 68–100
--- NOTE | 2021-05-17 04:55 | NUR ---
DURING REPOSITIONING OF PATIENT AFTER BATH NOTED THAT PATIENT BEGAN HAVING IRREGULAR SHAKING MOVEMENTS OF BILATERAL UPPER AND LOWER EXTREMITIES WITH HEAD SHAKING BACK AND FORTH OF NOTE THIS NURSE WAS WATCHING MOVEMENTS EXTREMITIES WOULD TWITCH RANDOMLY AND IRREGULARLY I.E. ONE LEG THEN ONE ARM THEN BOTH ARMS THEN HEAD BUT NOT ALL WITH SAME INTENSITY OR ANY CONSISTENCY. NOTED THAT WHEN THIS NURSE LEFT ROOM TWITCHING IMMEDIATELY STOPPED.
[2021-05-17 05:15] LABS: BASO % 0.4 % (0.0-2.0); EOS # 0.3 K/mm3 (0.0-0.7); EOS % 3.7 % (0-4.0); GRAN % 63.7 % (42.2-75.2); HEMOGLOBIN 11.9 g/dl (12.5-16.0); LYMPH # 1.9 K/mm3 (1.2-3.4); LYMPH % 23.7 % (20.0-51.0); MEAN CELL VOLUME 83 fl (80.0-100.0); MEAN CORPUSCULAR HEMOGLOBIN 28 pg (27.0-31.0); MEAN CORPUSCULAR HGB CONC 34 g/dl (33.0-37.0); MEAN PLATELET VOLUME 9.2 fl (7.4-10.4); MONO # 0.6 K/mm3 (0.1-0.6); MONO % 8.2 % (1.7-9.3); PLATELET COUNT 199 K/mm3 (130-400); RED BLOOD COUNT 4.24 M/mm3 (4.10-5.30); REDCELL DISTRIBUTION WIDTH-CV 12.8 % (11.5-14.5)
[2021-05-17 05:18] LABS: HEMATOCRIT 35.1 % (37.0-47.0)
[2021-05-17 05:30] LABS: CALCIUM 8.6 mg/dL (8.4-10.2); CREATININE, serum 0.7 mg/dL (0.57-1.11); MAGNESIUM 1.7 mg/dL (1.6-2.6); PHOSPHOROUS 4.2 mg/dL (2.3-4.7); POTASSIUM 3.8 mmol/L (3.5-4.5)
--- NOTE | 2021-05-17 08:30 | NUR ---
Pt's daughter Angelita in room visiting. Pt opening eyes occasionally while speaking with daughter and discussing events overnight. 0835: Angelita stepped out of room to notifiy staff pt shaking head back and forth, with arm movements. MD Kerri called and notified - orders recieved. 0840: Ativan IV administered, Angelita at bedside during explaining how this med will stop seizures. 3-5 seconds after pushing medication head and arm movements stopped.
--- NOTE | 2021-05-17 10:30 | NUR ---
Pts daughter Angelita present. Sedation stopped per MD Remi for weaning trial
--- NOTE | 2021-05-17 11:53 | NUR ---
RASS: +3 with seizure activity while staff or daughter Angelita in room Sedation resumed per MD Remi not by initiate protocol.
--- NOTE | 2021-05-17 21:59 | NUR ---
noted that when staff is in patient room patient begins moving head back and forth in a twitching type movement also noted that patient's brow is furrowed at the same time with intermittent twitching movements to bilateral arms and legs these movements resolve when staff exits room. No noted increase to heart rate or b/p during these times patient's eyes did remain perrl and squinted when this nurse attempted to assess
[2021-05-18] VITALS (178 sets, daily range): BP systolic 86–150; BP diastolic 53–106; PULSE 48–103; TEMP 94.4–100.2; O2SAT 33–100
[2021-05-18 03:37] LABS: ARTERIAL BLD GAS O2 SATURATION 98.3 % (92-100); ARTERIAL BLD GAS TCO2 CT 26.5; ARTERIAL BLOOD GAS BASE EXCESS 0.3 (-2-2); ARTERIAL BLOOD GAS HCO3 25.2 meq/L (22-26); ARTERIAL BLOOD GAS PCO2 41.5 mmHg (35-45)
[2021-05-18 03:39] LABS: ARTERIAL BLOOD GAS PO2 129.7 mmHg (80-100)
[2021-05-18 05:09] LABS: BASO % 0.5 % (0.0-2.0); EOS # 0.2 K/mm3 (0.0-0.7); EOS % 2.7 % (0-4.0); GRAN # 5.4 K/mm3 (1.4-6.5); GRAN % 64.2 % (42.2-75.2); HEMOGLOBIN 11.1 g/dl (12.5-16.0); LYMPH # 1.6 K/mm3 (1.2-3.4); LYMPH % 19.5 % (20.0-51.0); MEAN CELL VOLUME 82 fl (80.0-100.0); MEAN CORPUSCULAR HEMOGLOBIN 27 pg (27.0-31.0); MEAN CORPUSCULAR HGB CONC 33 g/dl (33.0-37.0); MEAN PLATELET VOLUME 9.4 fl (7.4-10.4); MONO # 1.1 K/mm3 (0.1-0.6); MONO % 12.7 % (1.7-9.3); PLATELET COUNT 211 K/mm3 (130-400); RED BLOOD COUNT 4.07 M/mm3 (4.10-5.30)
[2021-05-18 05:23] LABS: HEMATOCRIT 33.5 % (37.0-47.0)
[2021-05-18 05:37] LABS: ALBUMIN 2.8 gm/dL (3.5-5.0); BILIRUBIN,TOTAL 0.9 mg/dL (0.2-1.2); CALCIUM 8.4 mg/dL (8.4-10.2); CREATININE, serum 0.7 mg/dL (0.57-1.11); MAGNESIUM 1.8 mg/dL (1.6-2.6); PHOSPHOROUS 3.9 mg/dL (2.3-4.7); POTASSIUM 3.7 mmol/L (3.5-4.5); TOTAL PROTEIN 5.8 gm/dL (6.2-8.1)
--- NOTE | 2021-05-18 08:00 | NUR ---
Sedation discontinued by MD Remi for weaning trial, and EEG scheduled for 1200. Pts daughter present in room. Comfort care measures discussed with MD Kerri and daughter Angelita if pt is unable to tolerate weaning trials. CrissRN with hospice care unavailable to be present for meeting. Pt's daughter Angelita tearful in room
--- NOTE | 2021-05-18 15:22 | NUR ---
1300 Sedation resumed per MD Remi as EEG is complete and planning for CT of head w and w/out
--- NOTE | 2021-05-18 15:23 | NUR ---
1328: Departure to CT with CrystalRT 1400: Return from CT Pt tolerated well, no complications, linens and gown changed
--- NOTE | 2021-05-18 15:56 | NUR ---
I spoke with Aimee by phone today. Her mother is sedated and on the vent at this time. We are waiting for results of EEG and CT of head to help clarify Dewayne's situation. Aimee's baby is due the end of June and reports that Dewayne would like to see her new grandbaby but doesn't want to put her through another intubation or prolong her suffering for Aimee's own wishes. It is her hope that they will be able to take Dewayne home again and allow her to peacefully at home but is aware that this may not be a possibility. She did ask how many times a week hospice would come and be there with them. I told her that we would have a hospice account executive sales representative of the agency they choose come to speak with them specifically about this when they are ready to make that decision. Support provided.
[2021-05-19] VITALS (561 sets, daily range): BP systolic 116–160; BP diastolic 76–119; PULSE 53–90; TEMP 96.3–98.6; O2SAT 84–100
--- NOTE | 2021-05-19 00:30 | NUR ---
PATIENT SEDATION CONTINUES TO BE ADJUSTED FOR COMFORT, PATIENT CURRENTLY ABLE TO OPEN EYES TO VOICE UNABLE TO FOLLOW COMMANDS OR KEEP EYES OPEN FOR EXTENDED PERIOD OF TIME, PROPOFOL HAS BEEN STOPPED AT THIS TIME AND PRECEDEX HAS BEEN INCREASED TO ACHIEVE SEDATION GOALS
--- NOTE | 2021-05-19 02:10 | NUR ---
PATIENT RESTLESS AND ATTEMPTING TO SIT UP IN BED, EYES OPEN AT THIS TIME PATIENT PREVIOUSLY HAS WRITTEN TO THIS NURSE AT 0135 MEDICATION ADJUSTMENT THE WORD "TRACH" ON A PIECE OF PAPER, THIS NURSE ASKED PATIENT IF THE DR'S HAD TALKED TO HER ABOUT IT, SHE WROTE "I CAN HEAR" ASKED IF THAT WAS SOMETHINGSHE WANTED AND PATIENT NODDED HER HEAD. ENCOURAGED PATIENT TO TRY TO SLEEP FOR NOW AND THAT I WOULD MAKE SURE THAT THE DAY STAFF INFORMED THE DR'S OF HER WISHES.
--- NOTE | 2021-05-19 02:22 | NUR ---
PATIENT WITH LIMITED RESPONSE TO NOXIOUS STIM DECREASED PROPOFOL AT PRESENT TIME TO ASSIST WITH PATIENT BEING MORE RESPONSIVE
[2021-05-19 04:45] LABS: ARTERIAL BLD GAS O2 SATURATION 95.9 % (92-100); ARTERIAL BLD GAS TCO2 CT 24.3; ARTERIAL BLOOD GAS BASE EXCESS 0.8 (-2-2); ARTERIAL BLOOD GAS HCO3 23.3 meq/L (22-26); ARTERIAL BLOOD GAS PCO2 30.7 mmHg (35-45); ARTERIAL BLOOD GAS PO2 77.6 mmHg (80-100)
[2021-05-19 04:51] LABS: BASO % 0.4 % (0.0-2.0); EOS # 0.1 K/mm3 (0.0-0.7); EOS % 1.2 % (0-4.0); GRAN # 5.1 K/mm3 (1.4-6.5); HEMOGLOBIN 11.2 g/dl (12.5-16.0); LYMPH # 0.9 K/mm3 (1.2-3.4); LYMPH % 12.6 % (20.0-51.0); MEAN CELL VOLUME 83 fl (80.0-100.0); MEAN CORPUSCULAR HEMOGLOBIN 28 pg (27.0-31.0); MEAN CORPUSCULAR HGB CONC 34 g/dl (33.0-37.0); MEAN PLATELET VOLUME 9.6 fl (7.4-10.4); MONO # 0.7 K/mm3 (0.1-0.6); MONO % 10.5 % (1.7-9.3); PLATELET COUNT 181 K/mm3 (130-400); RED BLOOD COUNT 3.99 M/mm3 (4.10-5.30)
[2021-05-19 04:53] LABS: HEMATOCRIT 32.9 % (37.0-47.0)
[2021-05-19 05:55] LABS: CALCIUM 9.1 mg/dL (8.4-10.2); CREATININE, serum 0.61 mg/dL (0.57-1.11); POTASSIUM 3.9 mmol/L (3.5-4.5)
--- NOTE | 2021-05-19 06:00 | NUR ---
PATIENT INITIATED ON WEANING FROM SEDATION AT THIS TIME, PATIENT ABLE TO OPEN EYES AT THIS TIME AND NOD OR SHAKE HEAD APPROPRIATELY TO YES/NO QUESTIONS, ALSO ABLE TO WRITE SIMPLE SHORT SETENCES
--- NOTE | 2021-05-19 08:43 | NUR ---
I met with Dewayne this morning after she and Dr Khalil had communicated. Pt reports that she wants a trach placed, understands that this will be permanent, as this will allow her to see her new grandbaby and then she will do hospice. She wrote this out on paper at least three times. Dr Johnson has been contacted and will see pt later today. Her shakiness and head movements were present initially but soon resolved as our communication progressed.
--- NOTE | 2021-05-19 09:27 | NUR ---
Initial visit; Patient unable to respond. High School Principal offered a blessing.
--- NOTE | 2021-05-19 13:27 | NUR ---
Patient remains intubated and is communicating by means of writing on a clipboard provided to her. Patient's daughter has visited patient daily. Distillation Operator spoke with Dr. Johnson, ENT, regarding patient's desire to be trached. Dr. Johnson planning trach Tuesday and home with her daughter when medically appropriate. This worker will continue to follow patient's discharge needs.
--- NOTE | 2021-05-19 17:00 | NUR ---
DAUGHTER AT BEDSIDE. PT ALERT, FOLLOWS COMMANDS, COMMUNICATING WITH DAUGHTER THROUGH WRITING. PT VSS, TOLERATING VENT WELL. NO CHANGES MADE TO SEDATION AT THIS TIME.
--- NOTE | 2021-05-19 17:09 | NUR ---
DAUGHTER AT BEDSIDE, DISCUSSED POC AND TRACH PLACEMENT PLAN FOR TOMORROW. PT APPEARS COMFORTABLE IN BED, VSS. WILL CONTINUE TO MONITOR.
[2021-05-20] VITALS (642 sets, daily range): BP systolic 103–151; BP diastolic 67–91; PULSE 51–69; TEMP 97.9–98.5; O2SAT 58–100
--- NOTE | 2021-05-20 | NUR ---
TUBE FEEDINGS DISCONTINUED AT THIS TIME PENDING TRACH PLACEMENT PER SURGERY NOTES AT NOON
--- NOTE | 2021-05-20 | NUR ---
NOTED PATIENT ABLE TO OPEN EYES TO VOICE ON CURRENT LEVELS OF SEDATION AND NOD OR SHAKE HEAD IN RESPONSE TO QUESTIONS SHOOK HEAD WHEN ASKED IF SHE WISHED TO TURN AND POSITION. NOTED PATIENT RESTING WITH EYES CLOSED BEFORE THIS NURSE EXITED ROOM
--- NOTE | 2021-05-20 05:00 | NUR ---
SEDATION VACATION NOT NEEDED AT THIS TIME, PATIENT ABLE TO OPEN EYES AND NOD OR SHAKE HER HEAD APPROPRIATELY FALLS EASILY BACK TO SLEEP HAS BEEN CALM AND COOPERATIVE WITH CARES
[2021-05-20 05:15] LABS: ARTERIAL BLD GAS O2 SATURATION 96.5 % (92-100); ARTERIAL BLOOD GAS BASE EXCESS 1.1 (-2-2); ARTERIAL BLOOD GAS HCO3 25.7 meq/L (22-26); ARTERIAL BLOOD GAS pH 7.42 (7.35-7.45)
[2021-05-20 05:20] LABS: BASO % 0.5 % (0.0-2.0); EOS # 0.2 K/mm3 (0.0-0.7); EOS % 4.4 % (0-4.0); GRAN # 3.1 K/mm3 (1.4-6.5); GRAN % 55.8 % (42.2-75.2); HEMOGLOBIN 10.2 g/dl (12.5-16.0); LYMPH # 1.5 K/mm3 (1.2-3.4); LYMPH % 27.7 % (20.0-51.0); MEAN CELL VOLUME 85 fl (80.0-100.0); MEAN CORPUSCULAR HEMOGLOBIN 28 pg (27.0-31.0); MEAN CORPUSCULAR HGB CONC 33 g/dl (33.0-37.0); MEAN PLATELET VOLUME 9.8 fl (7.4-10.4); MONO # 0.6 K/mm3 (0.1-0.6); MONO % 11.2 % (1.7-9.3); PLATELET COUNT 164 K/mm3 (130-400); RED BLOOD COUNT 3.66 M/mm3 (4.10-5.30); REDCELL DISTRIBUTION WIDTH-CV 12.8 % (11.5-14.5)
[2021-05-20 05:28] LABS: HEMATOCRIT 31.1 % (37.0-47.0)
[2021-05-20 05:37] LABS: CALCIUM 8.8 mg/dL (8.4-10.2); CREATININE, serum 0.63 mg/dL (0.57-1.11); POTASSIUM 3.9 mmol/L (3.5-4.5)
--- NOTE | 2021-05-20 07:30 | NUR ---
REPORT RECEIVED FROM SANA BONNER. PATIENT SLEEPING ON VENT. VENT SETTINGS REVIEWED. LINES AND TUBES REVIEWED. CARE TAKEN OVER AT THIS TIME.
--- NOTE | 2021-05-20 08:17 | NUR ---
INCREASED PER DR.SINGH HOLMAN
--- NOTE | 2021-05-20 10:21 | NUR ---
I met with Dewayne again this morning. She gave me a thumbs up when I asked about getting her trach today. She also thanked me for checking on her and wishing her the best outcome for today and getting to see her new grandchild in June. her plan today is to go home when it is appropriate and keep fighting until her new grandbaby is home so she can meet them. She reports again that she will start hospice after this.
--- NOTE | 2021-05-20 10:35 | NUR ---
PHONE ORDER RECEIVED FROM DR. NICK TO OBTAIN CONSENT FOR TRACHEOSTOMY TUBE PLACEMENT. DAUGHTER HAILE HALEY CALLED AND PHONE CONSENT OBTAINED WITH SANA REYNOLDS A SECOND WITNESS. TRACH PLACEMENT SCHEDULED FOR 12:00 PM
--- NOTE | 2021-05-20 11:00 | NUR ---
BELLO SMITH, HERE TO SEE PATIENT
--- NOTE | 2021-05-20 12:09 | NUR ---
Patient leaves for Operating room at this time
--- NOTE | 2021-05-20 13:10 | NUR ---
Patient returns from OR. 6.0 [facility] trach in place. minimal oozing. She is sedated and placed on ventilator. LEAD CARGOMAN notified.
--- NOTE | 2021-05-20 13:19 | NUR ---
PT ARRIVED BACK TO ICU WITH A 6 SHILEY CUFFED, PLACED PATIENT BACK ON VENTILATOR.
--- NOTE | 2021-05-20 14:27 | NUR ---
Solder Making Laborer spoke with Annette from [facility] and confirmed that they are able to accept a patient with a new trach. They will also be able to educate patient's dtr/vascular sonographer about maintenance. I also spoke with Devon at [facility] and they are able to as well. SW then contacted patient's dtr, Saundra to discuss the options and she did not have a preference. Referral was faxed to [facility]. SW will continue to follow patient for potential d/c when medically appropriate. *D/C home with home health
--- NOTE | 2021-05-20 15:13 | NUR ---
PATIENT DOING WELL AFTER PROCEDURE. TRACH SITE HAS MINIMAL OOZING. DR. SANCHEZ STATES TO KEEP PATIENT SEDATED TODAY AND THEN TOMORROW WE WILL ALLOW HER TO COME OFF SEDATION AND TRANSITION TO A TRACH COLLAR.
--- NOTE | 2021-05-20 19:00 | NUR ---
PATIENT IS VISITING WITH HER DAUGHTER AT THIS TIME. SHE REQUESTS MORE PAIN MEDICATION AT THIS TIME. IT IS EXPLAINED TO HER THAT SHE IS ON A LARGER DOSE OF FENTANYL. SHE STATES THAT SHE HAS A HIGH TOLERANCE FOR PAIN MEDICATIONS. I STATE THAT WE WILL CONTACT HOSPITALIST TO SEE WHAT ELSE SHE CAN BE GIVEN TO HELP WITH PAIN CONTROL.
--- NOTE | 2021-05-20 19:30 | NUR ---
REPORT GIVEN TO SANA BONNER
[2021-05-21] VITALS (864 sets, daily range): BP systolic 107–137; BP diastolic 77–98; PULSE 51–96; TEMP 98.1–100; O2SAT 50–100
[2021-05-21 05:12] LABS: BASO % 0.8 % (0.0-2.0); EOS # 0.3 K/mm3 (0.0-0.7); EOS % 5.9 % (0-4.0); GRAN # 2.7 K/mm3 (1.4-6.5); GRAN % 50.5 % (42.2-75.2); HEMOGLOBIN 10.6 g/dl (12.5-16.0); LYMPH # 1.8 K/mm3 (1.2-3.4); LYMPH % 33.3 % (20.0-51.0); MEAN CELL VOLUME 84 fl (80.0-100.0); MEAN CORPUSCULAR HEMOGLOBIN 28 pg (27.0-31.0); MEAN CORPUSCULAR HGB CONC 33 g/dl (33.0-37.0); MEAN PLATELET VOLUME 9.7 fl (7.4-10.4); MONO # 0.5 K/mm3 (0.1-0.6); MONO % 9.3 % (1.7-9.3); PLATELET COUNT 200 K/mm3 (130-400); RED BLOOD COUNT 3.81 M/mm3 (4.10-5.30); REDCELL DISTRIBUTION WIDTH-CV 12.5 % (11.5-14.5)
[2021-05-21 05:17] LABS: HEMATOCRIT 31.8 % (37.0-47.0)
[2021-05-21 05:28] LABS: CALCIUM 9.2 mg/dL (8.4-10.2); CREATININE, serum 0.64 mg/dL (0.57-1.11); POTASSIUM 3.3 mmol/L (3.5-4.5)
[2021-05-21 05:51] LABS: ARTERIAL BLD GAS O2 SATURATION 95.4 % (92-100); ARTERIAL BLD GAS TCO2 CT 29.3; ARTERIAL BLOOD GAS BASE EXCESS 2.6 (-2-2); ARTERIAL BLOOD GAS HCO3 27.9 meq/L (22-26); ARTERIAL BLOOD GAS PCO2 45.7 mmHg (35-45); ARTERIAL BLOOD GAS PO2 81.8 mmHg (80-100)
--- NOTE | 2021-05-21 07:00 | NUR ---
RECEIVED REPORT FROM SANA BONNER. PT SITTING UP IN BED CURRENTLY ON VENT: RR 12, FIO2 30%, PEEP 5, TV 350. MIDDLE SCHOOL BASEBALL COACH IN PLACE. FC PATENT AND DRAINING TO GRAVITY. TF INFUSING IN PEG TUBE AT 40ML/HR. VSS. SEE GTT FLOWSHEET. PT ABLE TO FOLLOW COMMANDS AND EVEN WRITE ON PAPER.
--- NOTE | 2021-05-21 07:35 | NUR ---
RT AT BEDSIDE. DR SANCHEZ AT BEDSIDE AND STATES TO CHANGE PT OVER TO TRACH COLLAR AND TO STOP ALL SEDATION AT THIS TIME. SEE GT FLOWSHEET. RT PLACES PT ON TRACH COLLAR.
--- NOTE | 2021-05-21 07:47 | NUR ---
Part way through vent check Dr. Khalil wanted patient placed on Trach collar. Patient is now on trach collar.
--- NOTE | 2021-05-21 08:09 | NUR ---
CHIKI wilson call from Annette at [facility] and they have agreed to accept patient when she discharges.
--- NOTE | 2021-05-21 09:14 | NUR ---
PATIENT ON TRACH COLLAR AT THIS TIME
--- NOTE | 2021-05-21 10:00 | NUR ---
Dewayne reports feeling good about trach this morning by giving me a "thumbs up". She is currently on a trach collar and tolerating well. She reports that she has had a BM this morning "and it is still running out" This was relayed to her nurse. Still plan on going home when able.
--- NOTE | 2021-05-21 19:40 | NUR ---
NOT ON VENTILATOR AT THIS TIME
[2021-05-21 23:48] LABS: CALCIUM 9.2 mg/dL (8.4-10.2); CREATININE, serum 0.62 mg/dL (0.57-1.11); POTASSIUM 3.4 mmol/L (3.5-4.5)
[2021-05-22] VITALS (509 sets, daily range): BP systolic 120–147; BP diastolic 72–94; PULSE 77–108; TEMP 97.8–101.2; O2SAT 80–100
--- NOTE | 2021-05-22 02:14 | NUR ---
AT APPROXIMATELY 2150 THE PATIENT HAD A PSUEDO SEZURE THAT RESOLVED ON OWN. PATIENT SELF REPORTED LEFT ARM PARALYSIS AND NEW ONSET HEADACHE. PATIENT HAD UNEQUAL ELECTRONICS COMPUTER MECHANIC AND WAS UNABLE TO MOVE LEFT ARM. PATIENT MONITORED PER STANDARD OF CARE AND ACUTE STROKE EVALUATION. PHYSICIAN NOTIFIED AND RECIEVED ORDER FOR CT, EKG, STAT LABS,AND ACCU-CHECK.SEE ORDERS, RESULTS AND IMAGING RESULTS. WILL CONTINUE TO MONITOR FOR WORSENING OR NEW SYMPTOMS.
--- NOTE | 2021-05-22 03:16 | NUR ---
PT REFUSED JEVITY, SHE WROTE THAT SHE FEELS NAUSEATED WHEN ITS GIVEN. WILL TRY AGAIN IN THE MORNING.
[2021-05-22 05:00] LABS: BASO % 0.4 % (0.0-2.0); GRAN # 6.2 K/mm3 (1.4-6.5); GRAN % 79.4 % (42.2-75.2); HEMOGLOBIN 10.7 g/dl (12.5-16.0); LYMPH # 0.9 K/mm3 (1.2-3.4); LYMPH % 11.2 % (20.0-51.0); MEAN CELL VOLUME 84 fl (80.0-100.0); MEAN CORPUSCULAR HEMOGLOBIN 28 pg (27.0-31.0); MEAN CORPUSCULAR HGB CONC 33 g/dl (33.0-37.0); MEAN PLATELET VOLUME 9.1 fl (7.4-10.4); MONO # 0.7 K/mm3 (0.1-0.6); MONO % 8.5 % (1.7-9.3); PLATELET COUNT 232 K/mm3 (130-400); RED BLOOD COUNT 3.89 M/mm3 (4.10-5.30); REDCELL DISTRIBUTION WIDTH-CV 12.8 % (11.5-14.5)
[2021-05-22 05:02] LABS: HEMATOCRIT 32.5 % (37.0-47.0)
[2021-05-22 05:08] LABS: INR 1.2 (0.8-3.0); PROTHROMBIN TIME 13.6 SECONDS (9.7-12.8)
[2021-05-22 05:11] LABS: PARTIAL THROMBOPLASTIN TIME 30.3 SECONDS (26.0-37.0)
[2021-05-22 05:17] LABS: CALCIUM 9.2 mg/dL (8.4-10.2); CREATININE, serum 0.64 mg/dL (0.57-1.11); POTASSIUM 3.5 mmol/L (3.5-4.5)
--- NOTE | 2021-05-22 07:55 | NUR ---
AT 0550 MISS. CORBIN STARTED TO VOMIT GREEN GASTRIC CONTENT. PHYSICIAN WAS AT BEDSIDE AND ZOFRAN WAS ORDERED ALONG WITH PHENERGAN.
[2021-05-22 10:00] LABS: ARTERIAL BLD GAS TCO2 CT 24.4; ARTERIAL BLOOD GAS HCO3 23.4 meq/L (22-26); ARTERIAL BLOOD GAS PO2 68.1 mmHg (80-100)
--- NOTE | 2021-05-22 10:51 | NUR ---
I met with Dewayne today at bedside. She reports that she is feeling lonely and requests that I call her daughter Aimee and ask her to visit. I spoke with Aimee and she reports that she will be in later today when her can watch her toddler. Dewayne reports that she can move her arm some and had me pull on her lt arm--she resisted straightening her arm but did not move her arm. She tells me she is coming up to the floor tomorrow.
--- NOTE | 2021-05-22 13:15 | NUR ---
Programming Specialist met with patient to further discuss discharge plan. Patient continues to maintain that she wants to discharge home with her daughter and does not want skilled rehab. This worker contacted patient's dtr - Saundra, and she stated she had no preference which home care agency, she did state either [facility] or [facility]. This worker contacted both agencies, who stated they would be able to see patient on the weekend. [facility] will not be able to see patient until Tuesday. Referral faxed to [facility] and [facility]. Message left for Dr. Johnson as well regarding trach supplies and questions about patient's sutures. SW will continue to follow for d/c needs.
--- NOTE | 2021-05-22 16:09 | NUR ---
Tube Feeds have been on hold all day d/t reported vomiting overnight/early AM Pt vomited large amount of liquid green/brown emesis - MD Raudel notified - meds to be ordered by physician
--- NOTE | 2021-05-22 16:33 | NUR ---
CHIKI contacted [facility] to inform them that patient will need HHC before Tuesday and they are not able to see patient before that. CHIKI also contacted [facility] and left message that patient may d/c on weekend as patient will need trach kit. CHIKI also spoke with RN at Dr. Johnson's office. She stated that Dr. Johnson is out of state but she will make sure prescriptions are written for trach kit and what patient will need to take care of trach. [facility] does not d/c trach kits home with patients but they have already spent time with pt's dtr, Saundra, showing her how to care for patient's trach. Daughter told this worker that she would like a little more education on maintenance. SW will continue to follow.
--- NOTE | 2021-05-22 16:40 | NUR ---
Roller Shop Utility Worker received a call from Parish from [facility] stating that they do not accept trach patients on a weekend. They usually require a couple of weekdays to be sure they have all of the equipment required for taking care of a trach.
--- NOTE | 2021-05-22 17:50 | NUR ---
Pt transfered from ICU to Medical bed and taken to Medical 316 without difficulty. Recieved by SANA Tang - all belongings with pt
--- NOTE | 2021-05-22 18:36 | NUR ---
Pt arrived to floor via bed with ICU staff, assisted to get yonker and do own care, gave clip board and pnecil. Will give report to nightshift nurse who will resume care.
[2021-05-23] VITALS (7 sets, daily range): BP systolic 111–145; BP diastolic 63–89; PULSE 72–104; TEMP 97.4–98.8
--- NOTE | 2021-05-23 00:45 | NUR ---
Patient has begun to develop red patches on left shoulder, both knees and both forearms; When asked about these, patient writes on clipboard "they will blister" "it happens when I react". BETHEL Fernandes notified and holds future doses of lamictal, which is a new medication for the patient. No additional orders; will continue to closely monitor pt for signs of allergic reaction. Patient is currently otherwise stable with no increased work of breathing and with stable vital signs. Call light in reach.
--- NOTE | 2021-05-23 07:56 | NUR ---
REPORT RECEIVED FROM SANA HELTON. PT AWAKE/ALERT IN BED. HAS NO NEEDS AT THIS TIME. CALL PEREIRA IN REACH.
--- NOTE | 2021-05-23 11:23 | NUR ---
PT DOING WELL. SUCTIONED X2 THIS MORNING. PT TRANSFERRED TO CHAIR W/ 2 ASSIST. MEDS ADMINISTERED THROUGH PEG TUBE. PT HOPING TO BE D/C'd TODAY. NO OTHER NEEDS AT THIS TIME. CALL PEREIRA IN REACH
--- NOTE | 2021-05-23 15:24 | NUR ---
SW update. [facility] is ready and able to accept when the equipment for the Trach Kit comes in. [facility] does not have the EPC today and can not accept over the weekend. Will have EPC Tuesday. Dr. Shoemaker reports that he send the order to [facility] on Tuesday. Educated patient and DTR in the room. Needs supplies, suction machine, saline and supervisor shrimp pond.
[2021-05-23 15:44] LABS: COLLECTION METHOD CATHETER
[2021-05-23 15:57] LABS: MUCOUS Present /lpf; PH 5 (5-8); SQUAMOUS EPITHELIAL None Seen /hpf; URINE APPEARANCE Hazy; URINE BACTERIA Rare /hpf; URINE BILIRUBIN Negative (NEGATIVE); URINE BLOOD 1+ (NEGATIVE); URINE COLOR Yellow; URINE GLUCOSE Negative (NEGATIVE); URINE KETONE Negative (NEGATIVE); URINE LEUKOCYTE ESTERASE 1+ (NEGATIVE); URINE NITRATE Negative (NEGATIVE); URINE PROTEIN(semi-quant) Negative (NEGATIVE); URINE UROBILINOGEN Negative (NEGATIVE)
--- NOTE | 2021-05-23 18:10 | NUR ---
PT HAD UNEVENTFUL SHIFT. GOT UP FROM BED AND INTO CHAIR FOR MOST OF THE DAY. HAS NO NEEDS AT THIS TIME. CALL PEREIRA IN REACH
--- NOTE | 2021-05-23 20:00 | NUR ---
Assessment complete. Trach care/hygeine/suction is provided with assistance of Rt and this RN. Patient complaining of pain and nausea; PRN zofran and morphine administered. Other assessment findings unchanged from last night.
[2021-05-24 03:52] VITALS: BP 115/60; PULSE 70; TEMP 98
--- NOTE | 2021-05-24 05:24 | NUR ---
Patient has had an episode of emesis while having her trach suctioned by RT. She requets phenergan, which is administered at this time. Oral hygeine provided with mouth swab.
--- NOTE | 2021-05-24 07:24 | NUR ---
RECEIVED REPORT FROM SANA HELTON. PT AWAKE/ALERT. NEEDED SUCTIONING. PROCEDURE PERFORMED. PT REQUESTED TO SEE RT. RT NOTIFIED AND SAW PATIENT. PT HAS NO OTHER NEEDS AT THIS TIME. CALL PEREIRA IN REACH
[2021-05-24 08:32] VITALS: BP 143/82; PULSE 76; TEMP 97.8
[2021-05-24 13:12] VITALS: BP 143/77; PULSE 93; TEMP 97.7
[2021-05-24 16:38] VITALS: BP 103/64; PULSE 99; TEMP 97.6
--- NOTE | 2021-05-24 17:36 | NUR ---
PT HAD UNEVENTFUL SHIFT. DOING MUCH BETTER TODAY. LESS SUCTIONING REQUIRED AND PT DID BETTER TRANSFERRING. PT ASLEEP IN BED. CALL PEREIRA IN REACH
[2021-05-24 21:03] VITALS: BP 125/94; PULSE 101; TEMP 99.5
[2021-05-25] VITALS (7 sets, daily range): BP systolic 104–130; BP diastolic 63–93; PULSE 83–101; TEMP 97.9–99.5
--- NOTE | 2021-05-25 00:58 | NUR ---
Patient sitting up in bed upon shift start. Patient alert and oriented. Patient non-verbal due to trach placement but able to write on the paper to make her needs known. Noticed some rashes to her left forearm area. Patient states feeling itchy. Called BETHEL Shukla and updated. PRN Benadryl given around 9pm. Patient developed more rashes to her right forearm area. Updated BETHEL Shukla, and PRN Benadryl given around 23:20 pm. Patient having N/V and small amount of emesis noted after medications given. PRN Phenergan given per MAR. RT in the room and did trach suctioning x2 tonight and did trach care. Patient has moderate amount of secretions out from trach whenever she cough. Frequent trach care provided. Call light in reach. Will continue to monitor.
--- NOTE | 2021-05-25 06:12 | NUR ---
Patient slept a few hours last night. Patient states feeling much better this morning. Trach secretions much less this morning. Call light in reach. will continue to monitor.
--- NOTE | 2021-05-25 07:00 | NUR ---
Report received from SANA Willis. Pt in bed resting with eyes open, requesting pain meds, will provide.
--- NOTE | 2021-05-25 09:55 | NUR ---
I met with Dewayne this morning to see how she was doing as health social work professor is working to get her home with her daughter as soon as supplies are available. She is anxious to get home and is hoping to make it through the [place] holiday before switching to hospice services. We talked about that this is a good goal but that if her condition worsens, she may need to change that goal. She is tearful but I am hoping is being realistic with her situation. Support provided.
[2021-05-25 10:24] LABS: HEMATOCRIT 37.4 % (37.0-47.0); HEMOGLOBIN 12.4 g/dl (12.5-16.0); MEAN CELL VOLUME 82 fl (80.0-100.0); MEAN CORPUSCULAR HEMOGLOBIN 27 pg (27.0-31.0); MEAN CORPUSCULAR HGB CONC 33 g/dl (33.0-37.0); MEAN PLATELET VOLUME 9.1 fl (7.4-10.4); PLATELET COUNT 230 K/mm3 (130-400); RED BLOOD COUNT 4.57 M/mm3 (4.10-5.30); REDCELL DISTRIBUTION WIDTH-CV 12.6 % (11.5-14.5)
--- NOTE | 2021-05-25 10:34 | NUR ---
Assessment charted. pt up in chair with therapy. Trach draining yellow thick secretions when coughing. Pt only tolerated 50 mls of feeding this am. Will try again at noon. PEG only had 10 ccs of residual, meds given and PRN meds per request. Pt has [place] draining clear yellow/reji yellow urine to DD in bag at side of bed. PAC to RUC, flushes and blood return. Denies other needs, will continue to monitor.
[2021-05-25 10:37] LABS: CALCIUM 9.3 mg/dL (8.4-10.2); CREATININE, serum 0.75 mg/dL (0.57-1.11); POTASSIUM 3.5 mmol/L (3.5-4.5)
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
--- NOTE | 2021-05-25 18:41 | NUR ---
Pt has done well over shift. PRN pain and nausea meds given. Pt tolerated 2 full cans of jevity feedings. Resting in bed, did get up to chair today. Trach still has many secretions. Denies needs, will give report to nightshift nurse who will resume care.
--- NOTE | 2021-05-26 02:06 | NUR ---
Patient sitting up in bed upon enter the room. Patient alert and oriented. Patient reports moderate pain to her abdomen area. PRN Morphine given per patient request. Trach in place and draining moderate secretions when paient cough. PEG tube site C/D/I. Checked gastric residual before administer medications and no any residual noted. Ortiz patent and draining clear yellow urine. Respiratory therapy in the room and did suctioning and trach care. Call light in reach. Will continue to monitor.
[2021-05-26 04:00] VITALS: BP 70/53; PULSE 57; TEMP 98.9
[2021-05-26 04:45] VITALS: BP 110/66; PULSE 78; TEMP 99
--- NOTE | 2021-05-26 05:26 | NUR ---
Patient slept on and off over the night. Patient had loose BM x2 over the night. Per patient, she has been having diarrhea/loose stool for the last 3-4 days. Patient states she had H.Pylori a few month ago and concerning for H.pylori. Called BETHEL Shukla and updated. GI panel and H.pylori lab collected and sent to lab. PRN pain med and nausea med given per patient request. Patient tolerated 1 full can of Jevity bolus feeding via PEG tube around 5 am. Call light in reach. Will continue to monitor.
--- NOTE | 2021-05-26 07:29 | NUR ---
REPORT RECEIEVED FROM SANA OLMOS. PT AWAKE/ALERT, RESTING. MORPHINE REQUESTED FOR PAIN AND ADMINISTERED. NO OTHER NEEDS AT THIS TIME. CALL PEREIRA IN REACH
[2021-05-26 08:00] VITALS: BP 117/88; PULSE 100; TEMP 98.3
[2021-05-26] MEDS ORDERED: KADIAN30 MG PO (10:12)
[2021-05-26] MEDS ORDERED: MORPHINE 1515 MG/TAB PO (10:13)
[2021-05-26] MEDS ORDERED: PLAVIX 75MG TAB75 MG PO (10:32)
[2021-05-26] MEDS ORDERED: OMNICEF 300MG300 MG PO (10:32)
[2021-05-26] MEDS ORDERED: CYMBALTA 20MG20 MG PO (10:33)
[2021-05-26] MEDS ORDERED: EFFER-K20 MEQ PEG (10:33)
--- NOTE | 2021-05-26 10:38 | NUR ---
I met with Dewayne again this morning. She is very anxious about her care and reports that her nurses have been very slow responding to her call light. She has herself very worked up and has since been given, at her request, some valium and IV morphine. I encouraged her to try to rest for while in anticipation of her discharge. We talked with her about having a call system in the house so she can get help at home if her daughter is not in her room. They have baby monitors in place and she has a first alert call system that calls her family and 911 if she is in distress. Dewayne seems very sure that she wants to go home. She talked with Lucila Simon about her call light experience as well. Support was provided. Pt is still very sure she wants to go home.
--- NOTE | 2021-05-26 11:54 | NUR ---
PT WENT TO HAVE TRACH CHANGEED
--- NOTE | 2021-05-26 12:24 | NUR ---
PT RETURNED FROM PROCEDURE. AWAKE/ALERT, TALKATIVE. PT RESTING IN BED. NO NEEDS AT THIS TIME
[2021-05-26 12:34] VITALS: BP 90/65; PULSE 101; TEMP 98.2
--- NOTE | 2021-05-26 16:01 | NUR ---
Respiratory Therapists from [facility] in [place] arrived to the hospital this morning and met with the patient. They approached SW and asked for an update on the patient and whether she would need home oxygen. SW, RT, the patient's RN, and palliative care nurse met with the RTs and provided them with an update. Our RT confirmed that the patient is not going to need home oxygen. The RTs from [place] report that they require the patient's daughter to be able to demonstrate that she can suction and do an emergency trach change. They report that they still plan on meeting the patient's daughter at her home at 1300 to deliver the equipment and get it set up. CHIKI contacted the patient's daughter, Aimee, and updated her on the above. Aimee reports that she will be up to the hospital for the education, after the home set up. The patient is going to have her trach changed today. The RTs from [place] requested updates from this. CHIKI met with the patient to review discharge plan. The patient reports that she is ready to get home with her family. CHIKI presented and read the IM form outloud to her. The patient verbalized understanding and signed the form. SW provided her with a copy. Aimee then arrived to the patient's room. CHIKI notified the patient's RN and our RT was notified to start education. CHIKI faxed ENT's note from today and the patient's discharge summary to [facility] in [place]. The patient is to discharge back home with her family today, 05/26, with home health services for long term/PT/OT from [facility]. CHIKI notified and faxed discharge orders to Ladonna at [facility]. Ladonna reports that he has been in contact with the patient's daughter and they will be going out to the patient's home tomorrow to start services. No additional needs at this time.
--- NOTE | 2021-05-26 16:30 | NUR ---
INSTRUCTED DAUGHTER ON TRACH CARE, SUCTIONING AND REMOVING INNER CANNULA. DAUGHTER FELT VERY COMFORTABLE WITH DOING CARE.
--- NOTE | 2021-05-26 17:01 | NUR ---
DISCHARGE INSTRUCTIONS REVIEWED WITH PATIENT AND FAMILY. JONES, TELE, AND JEYSON CATH ACCESS DC'D. QUESTIONS INVITED AND ANSWERED. NO NEEDS AT THIS TIME
== END 2021-05-26 17:02 | disposition home health service (06) | DRG 4 ==
LOC: COL.ER 05:54 → ICU 08:40 → MEDICAL 05-22 18:19
PROVIDERS: Emergency Medicine Emergency Medical Services; Family Medicine; Internal Medicine; Internal Medicine Pulmonary Disease; Otolaryngology; Student in an Organized Health Care Education/Training Program; ADMIT Internal Medicine
PROC: 5A1955Z Respiratory Ventilation, Greater than 96 Consecutive Hours (ICD-10-PCS; 2021-05-14)
PROC: 0BH17EZ Insertion of Endotracheal Airway into Trachea, Via Natural or Artificial Opening (ICD-10-PCS; 2021-05-14)
PROC: 0B110F4 Bypass Trachea to Cutaneous with Tracheostomy Device, Open Approach (ICD-10-PCS; principal; 2021-05-20 12:00)
DX: J96.00 Acute respiratory failure, unspecified whether with hypoxia or hypercapnia (principal); G90.3 Multi-system degeneration of the autonomic nervous system; N39.0 Urinary tract infection, site not specified; J84.10 Pulmonary fibrosis, unspecified; I27.20 Pulmonary hypertension, unspecified; K31.84 Gastroparesis; E03.9 Hypothyroidism, unspecified; I35.0 Nonrheumatic aortic (valve) stenosis; I25.2 Old myocardial infarction; Z20.822 Contact with and (suspected) exposure to COVID-19; Z66 Do not resuscitate; J45.909 Unspecified asthma, uncomplicated; E87.6 Hypokalemia; F32.9 Major depressive disorder, single episode, unspecified; G40.909 Epilepsy, unspecified, not intractable, without status epilepticus; G25.81 Restless legs syndrome; R21 Rash and other nonspecific skin eruption; R25.1 Tremor, unspecified; R53.1 Weakness; R49.9 Unspecified voice and resonance disorder; R33.9 Retention of urine, unspecified; G89.29 Other chronic pain; R07.9 Chest pain, unspecified; G43.909 Migraine, unspecified, not intractable, without status migrainosus; G47.00 Insomnia, unspecified; Z79.891 Long term (current) use of opiate analgesic; Z97.8 Presence of other specified devices; Z90.710 Acquired absence of both cervix and uterus; Z88.6 Allergy status to analgesic agent; Z88.1 Allergy status to other antibiotic agents; Z88.5 Allergy status to narcotic agent
CPT/HCPCS: 99223-AI; 99231-AI; 99232-AI; 99233-AI; 99239; A7520; J0330; J0696; J1200; J1644; J1650; J1953; J2060; J2250; J2270; J2405; J2550; J2704; J3010; J3475; J3480; J7030; J7060; Q9967

== ENCOUNTER 2021-06-22 17:46 | Emergency (ER) | payer MEDICARE, MEDICAID ==
[~2021-06-22] VITALS: Ht 165.1 cm; Wt 88.6 kg
[~2021-06-22 17:46] MED LIST changes: +CYMBALTA 20MG20 MG PO; +EFFER-K20 MEQ PEG; +KADIAN30 MG PO; +PLAVIX 75MG TAB75 MG PO
[2021-06-22 18:04] VITALS: BP 154/87; TEMP 97.2
[2021-06-22 19:29] VITALS: PULSE 98
== END 2021-06-22 19:28 | disposition home or self-care (01) ==
LOC: COL.ER 17:46
DX: G90.3 Multi-system degeneration of the autonomic nervous system (principal); J45.909 Unspecified asthma, uncomplicated; G43.909 Migraine, unspecified, not intractable, without status migrainosus; E03.9 Hypothyroidism, unspecified; G47.00 Insomnia, unspecified; Z43.0 Encounter for attention to tracheostomy; Z79.899 Other long term (current) drug therapy; Z79.890 Hormone replacement therapy

== ENCOUNTER 2021-07-07 10:06 | Emergency (ER) | payer MEDICARE, MEDICAID ==
[~2021-07-07] VITALS: Ht 162.6 cm; Wt 88.6 kg
[2021-07-07 10:16] VITALS: TEMP 98.4
[2021-07-07 11:50] LABS: BASO # 0.1 K/mm3 (0.0-0.2); BASO % 0.9 % (0.0-2.0); EOS # 0.1 K/mm3 (0.0-0.7); EOS % 1.1 % (0-4.0); GRAN # 3.2 K/mm3 (1.4-6.5); GRAN % 58.9 % (42.2-75.2); HEMATOCRIT 39.5 % (37.0-47.0); HEMOGLOBIN 12.7 g/dl (12.5-16.0); LYMPH # 1.6 K/mm3 (1.2-3.4); LYMPH % 30.2 % (20.0-51.0); MEAN CELL VOLUME 83 fl (80.0-100.0); MEAN CORPUSCULAR HEMOGLOBIN 27 pg (27.0-31.0); MEAN CORPUSCULAR HGB CONC 32 g/dl (33.0-37.0); MEAN PLATELET VOLUME 9.2 fl (7.4-10.4); MONO # 0.5 K/mm3 (0.1-0.6); MONO % 8.5 % (1.7-9.3); PLATELET COUNT 221 K/mm3 (130-400); RED BLOOD COUNT 4.75 M/mm3 (4.10-5.30); REDCELL DISTRIBUTION WIDTH-CV 13.2 % (11.5-14.5)
[2021-07-07 12:08] LABS: ALBUMIN 4.1 gm/dL (3.5-5.0); BILIRUBIN,TOTAL 0.6 mg/dL (0.2-1.2); CALCIUM 9.9 mg/dL (8.4-10.2); CREATININE, serum 0.78 mg/dL (0.57-1.11); TOTAL PROTEIN 7.4 gm/dL (6.2-8.1)
[2021-07-07 15:37] VITALS: BP 116/73; PULSE 73
== END 2021-07-07 15:37 | disposition home or self-care (01) ==
LOC: COL.ER 10:06
PROVIDERS: Nurse Practitioner Primary Care
DX: K94.23 Gastrostomy malfunction (principal); G90.3 Multi-system degeneration of the autonomic nervous system
CPT/HCPCS: J1644; J2270; J2550; J2704; J3360; J7030

== ENCOUNTER 2021-07-21 08:51 | Observation (INO) | payer MEDICARE, MEDICAID ==
[~2021-07-21] VITALS: Ht 165.1 cm; Wt 92.3 kg
[2021-07-21 09:14] LABS: BASO % 0.4 % (0.0-2.0); EOS % 0.5 % (0-4.0); GRAN # 5.9 K/mm3 (1.4-6.5); GRAN % 75.9 % (42.2-75.2); HEMATOCRIT 41.2 % (37.0-47.0); HEMOGLOBIN 13.7 g/dl (12.5-16.0); LYMPH # 1.4 K/mm3 (1.2-3.4); LYMPH % 17.5 % (20.0-51.0); MEAN CELL VOLUME 80 fl (80.0-100.0); MEAN CORPUSCULAR HEMOGLOBIN 27 pg (27.0-31.0); MEAN CORPUSCULAR HGB CONC 33 g/dl (33.0-37.0); MEAN PLATELET VOLUME 9.2 fl (7.4-10.4); MONO # 0.4 K/mm3 (0.1-0.6); MONO % 5.3 % (1.7-9.3); PLATELET COUNT 200 K/mm3 (130-400); RED BLOOD COUNT 5.14 M/mm3 (4.10-5.30); REDCELL DISTRIBUTION WIDTH-CV 13.2 % (11.5-14.5)
[2021-07-21 09:29] LABS: ALANINE AMINOTRANSFERASE 8 U/L (0-55); ALBUMIN 4.2 gm/dL (3.5-5.0); ALKALINE PHOSPHATASE 112 U/L (40-150); ANION GAP 18 mmol/L (7-16); AST,SGOT 12 U/L (5-34); BILIRUBIN,TOTAL 0.6 mg/dL (0.2-1.2); BLOOD UREA NITROGEN 10 mg/dL (10-20); CALCIUM 9.6 mg/dL (8.4-10.2); CARBON DIOXIDE 18 mmol/L (22-29); CHLORIDE 104 mmol/L (98-107); CREATININE, serum 0.86 mg/dL (0.57-1.11); GLUCOSE 101 mg/dL (70-99); POTASSIUM 3.5 mmol/L (3.5-4.5); SODIUM 140 mmol/L (136-145); TOTAL PROTEIN 7.3 gm/dL (6.2-8.1)
[2021-07-21 09:35] LABS: TROPONIN-I < 0.010 ng/mL (0.00-0.033)
--- NOTE | 2021-07-21 11:08 | NUR ---
Called to ER for palliative care parkerult with Dewayne Miller who present to the ER by EMS with c/o difficulty breathing. Her vital signs and labwork/xray do not support her level of anxiety/distress at this time. I spoke with her about comfort care not including labwork, IV's, and she requested no feedings and reports that she just wants to be comfortable and . She reports that she does not want to go to hospice house, will not go home. At one point she said she would accept being ventilated 3 days and then taken off if she wasn't better and allowed to . When I pointed out to her that those are two very extreme and opposite levels of care she reported that she wanted to be only comfort care. She did not want her family to visit until she was "asleep" and that she did not want them to change her care level when she was no longer able to make her own decisions. She asked that I contact her ex and advise him of her plan for comfort care and no visitors and that I contact her sister Lisa ([phone]) and advise her of her election to go on comfort care only. I did discuss this with her exhusband but was not able to reach her sister at this time. Sonia Rodriguez RN and Nesha NEIL were also present during the conversations with Dewayne and clearly heard her demand comfort care only and to be allowed to . Also this was discussed with Dr Templeton in the ER. Plan is to admit to floor on comfort care.
--- NOTE | 2021-07-21 14:13 | NUR ---
CHIKI responded to consult. The patient presented to the ED and informed staff she was ready for hospice. CHIKI requested a palliative care consult. CHIKI and Palliative Care RN's: Criss and Sonia met with the patient. The patient informed us how she threw up yesterday and is having difficulty breathing. The patient informed us that she would want to be intubated for three days. The patient then said that she is ready to be on comfort care and not have to fight anymore. Criss addressed how those are two different directions and explained the difference. The patient verbalized that she does not want any more IV's, feedings, or to be intubated. She states that she is ready to be on comfort measures, but is concerned that her daughter will overide her wishes, once she is not alert and oriented. The patient reports that she would not want to do hospice at home either, due to not wanting her daughter to have to watch her and take care of her and she was not interested in going to a facility either. CHIKI then followed up with the patient to inform her how if she is wanting to pursue comfort measures, we would have to be looking at where she would go on hospice. CHIKI discussed hospice in the home, hospice in a facility, and the hospice house. The patient reiterated that she does not want to go home on hospice. She verbalized that she would be interested in going to the hospice house or to a facility. CHIKI contacted the patient's daughter/DPOA-HC, Aimee, and updated her on the above. Aimee was tearful and reports that she will do whatever the patient wants to do. CHIKI contacted and faxed a referral to [facility]. Awaiting screens. The patient's RN then notified CHIKI that the patient's daughter, Aimee, arrived to the hospital and they had further questions about home hospice. CHIKI met with the patient and Aimee. CHIKI discussed the options again. The patient confirms that she does not want to go home on hospice and does not want Aimee to witness her . She confirms that she would like to pursue the hospice house or at a facility. Aimee was supportive of the patient's decision. Aimee had no other questions for CHIKI at this time. Amee, at [facility], reports that they declined the patient. Milton, at [facility], reports that they will probably be able to take the patient tomorrow. They just want to make sure the patient is aware that they would stair step the patient's tube feedings down. CHIKI met with the patient to update. The patient reports that she was under the impression that she was not going to be receiving any more feedings. She reports that she was only able to tolerate 3 feedings a day at home. The patient verbalized that they would be stair stepping her feedings down and is okay with this. CHIKI notified Milton at [facility]. Milton reports that they have a message out to the patient's PCP's office, Dr. Bales, but that they plan on taking the patient tomorrow. Milton reports that she will touch [facility] lauren MONET in the morning to set up a transport time. CHIKI updated the patient. She is agreeable to the plan. CHIKI then contacted and updated her daughter, Aimee. Aimee is also in agreement to the plan. CHIKI updated the patient's RN and Group [employer]. The patient is to be admitted for obs and transfer to the hospice house tomorrow, 07/22.
--- NOTE | 2021-07-21 18:28 | NUR ---
Report recieved from SANA Gerber.
--- NOTE | 2021-07-21 19:00 | NUR ---
Report received from SANA Hartley.
[2021-07-21 19:47] VITALS: BP 118/88; PULSE 68; TEMP 98.7
--- NOTE | 2021-07-21 20:00 | NUR ---
Arrived to room 343 via stretcher from ED. Oriented to room and policy. Admission assessment complete. A&Ox4. VS currently stable. Patient very teary eyed with decision to go comfort care. Discussed at length with patient and she is content with her decision. Requested orders be placed for no interventions-no vitals-no labs-no medications except for comfort medications. Noted to have a port that has already been accessed to the right chest. Flushes without difficulty with good blood return. Trach midline-no oxygen required. Peg tube to right side-states she does not want this used for anything. Reports that she has to self cath at home-states she can void small amounts but has retention issues up to 750mls. Came from ED with pure wick in place. Spoke with BETHEL Shukla and orders received for england cath and comfort medications. Discussed at length with patient purpose of each medication. Attempt made to update med rec, however patient states the only medications she has been taking are her pain, nausea and anxiety meds. States she cant recall when she took those last. All questions answered. Call light in reach. Will monitor.
--- NOTE | 2021-07-21 21:23 | NUR ---
16F england cath inserted at this time-10mls NS to balloon with an immediate return of 450mls clear yellow urine. Tolerated well.
--- NOTE | 2021-07-21 23:21 | NUR ---
RECEIVED REPORT FROM NO HOOD ON PATIENT'S ADMIT AND SUBSEQUENT TREATMENT SINCE ADMIT TO ROOM 343.
--- NOTE | 2021-07-22 05:37 | NUR ---
PATIENT RESTING WITH EYES CLOSED, BREATHING NONLABORED AND EVEN. SEE MAR FOR PRN MEDS GIVEN. JONES IN PLACE AND DRAININAG DARK YELLOW URINE.
--- NOTE | 2021-07-22 07:17 | NUR ---
CHANGE OF SHIFT REPORT GIVEN TO DAY SHIFT ARCHIE HOOD.
[2021-07-22] MEDS ORDERED: TRANSDERM-0.5 MG/21 TD (08:25)
[2021-07-22] MEDS ORDERED: DULCOLAX S10 MG/SUPP RC (08:26)
[2021-07-22] MEDS ORDERED: KADIAN30 MG PO (09:12)
[2021-07-22] MEDS ORDERED: ROXANOL 20MG20 MG/ML SL (09:12)
[2021-07-22] MEDS ORDERED: VALIUM 10MG10 MG/TAB PO (09:12)
[2021-07-22] MEDS ORDERED: MORPHINE 1515 MG/TAB PO (09:12)
--- NOTE | 2021-07-22 12:16 | NUR ---
Patient has been discharged from room 344 to [facility]. Patient's room has been cleared of all personal items and package was sent with the transportation team.
--- NOTE | 2021-07-22 15:04 | NUR ---
Patient has been discharged from room 343 and transferred to [facility]. Patient's personal belongings have been cleared from room to include cell phone and business analyst intern. Patient was escorted by Regina DING. Patient seatbelted in car with daughter who will provide transportation to hospice. Patient does not have any further questions at this time.
--- NOTE | 2021-07-22 15:21 | NUR ---
Initial visit; Patient thanked Gr[employer] Teacher for looking in on her and stated [facility] and wanted to know if Gr[employer] 5 Teacher would visit her there. [employer] 1 [employer] 5 Teacher visited with her and offered prayer and God's blessings.
--- NOTE | 2021-07-22 16:20 | NUR ---
Academic Intern collaborated with Milton from [facility] who advised as soon as they have acceptance from Dr. Bales, patient can admit. CHIKI met with patient who is still in agreement with discharge to [facility] and advised her daughter, Aimee will provide transport. 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 Later in the afternoon, Milton contacted CHIKI and advised that Dr. Bales accepted. CHIKI notifed patient who called her daughter to come pick her up. CHIKI faxed discharge orders to Milton at [facility].
== END 2021-07-22 15:08 | disposition hospice, inpatient (51) ==
LOC: COL.ER 08:51 → SURG 14:12
PROVIDERS: Emergency Medicine; ADMIT Student in an Organized Health Care Education/Training Program
DX: R06.03 Acute respiratory distress (principal); G90.3 Multi-system degeneration of the autonomic nervous system; R33.9 Retention of urine, unspecified; K31.84 Gastroparesis; R11.2 Nausea with vomiting, unspecified; G89.29 Other chronic pain; J45.909 Unspecified asthma, uncomplicated; J84.10 Pulmonary fibrosis, unspecified; I27.20 Pulmonary hypertension, unspecified; I35.0 Nonrheumatic aortic (valve) stenosis; G25.81 Restless legs syndrome; E03.9 Hypothyroidism, unspecified; G47.00 Insomnia, unspecified; G43.909 Migraine, unspecified, not intractable, without status migrainosus; F32.A Depression, unspecified; F41.9 Anxiety disorder, unspecified; Z20.822 Contact with and (suspected) exposure to COVID-19; Z93.1 Gastrostomy status; Z79.891 Long term (current) use of opiate analgesic; Z79.899 Other long term (current) drug therapy; Z79.890 Hormone replacement therapy; Z79.02 Long term (current) use of antithrombotics/antiplatelets
CPT/HCPCS: G0378; J2060; J2250; J2270; J2405; J2550; J3010

== ENCOUNTER 2021-10-10 07:33 | Emergency (ER) | payer MEDICARE, MEDICAID ==
[~2021-10-10] VITALS: Ht 165.1 cm; Wt 90.9 kg
[~2021-10-10 07:33] MED LIST changes: +DULCOLAX S10 MG/SUPP RC; +ROXANOL 20MG20 MG/ML SL; +TRANSDERM-0.5 MG/21 TD
[2021-10-10 07:45] VITALS: TEMP 96.9
[2021-10-10 08:34] LABS: BASO # 0.1 K/mm3 (0.0-0.2); BASO % 0.9 % (0.0-2.0); EOS # 0.1 K/mm3 (0.0-0.7); EOS % 0.9 % (0.0-4.0); GRAN # 4.7 K/mm3 (1.4-6.5); GRAN % 69.2 % (42.2-75.2); HEMATOCRIT 39.8 % (37.0-47.0); HEMOGLOBIN 13.1 g/dl (12.5-16.0); LYMPH # 1.5 K/mm3 (1.2-3.4); LYMPH % 21.8 % (20.0-51.0); MEAN CELL VOLUME 79 fl (80.0-100.0); MEAN CORPUSCULAR HEMOGLOBIN 26 pg (27-31); MEAN CORPUSCULAR HGB CONC 33 g/dl (33.0-37.0); MEAN PLATELET VOLUME 8.7 fl (7.4-10.4); MONO # 0.5 K/mm3 (0.1-0.6); MONO % 6.8 % (1.7-9.3); PLATELET COUNT 184 K/mm3 (130-400); RED BLOOD COUNT 5.02 M/mm3 (4.10-5.30); REDCELL DISTRIBUTION WIDTH-CV 14.9 % (11.5-14.5)
[2021-10-10 08:45] LABS: ALBUMIN 4.1 gm/dL (3.5-5.0); BILIRUBIN,TOTAL 0.8 mg/dL (0.2-1.2); CALCIUM 9.3 mg/dL (8.4-10.2); CREATININE, serum 0.8 mg/dL (0.57-1.11); POTASSIUM 3.4 mmol/L (3.5-4.5); TOTAL PROTEIN 7.4 gm/dL (6.2-8.1)
[2021-10-10 09:01] VITALS: BP 137/88; PULSE 91
== END 2021-10-10 09:45 | disposition home or self-care (01) ==
LOC: COL.ER 07:33
PROVIDERS: Student in an Organized Health Care Education/Training Program
DX: R05.9 Cough, unspecified (principal)

== ENCOUNTER 2021-10-22 06:37 | Emergency (ER) | payer MEDICARE, MEDICAID ==
[~2021-10-22] VITALS: Ht 165.1 cm; Wt 86.4 kg
[2021-10-22 06:54] VITALS: TEMP 98.9
[2021-10-22 07:53] LABS: BASO % 0.6 % (0.0-2.0); EOS # 0.1 K/mm3 (0.0-0.7); EOS % 1.5 % (0.0-4.0); GRAN # 4.6 K/mm3 (1.4-6.5); GRAN % 64.7 % (42.2-75.2); HEMOGLOBIN 13.8 g/dl (12.5-16.0); LYMPH # 1.7 K/mm3 (1.2-3.4); LYMPH % 24.4 % (20.0-51.0); MEAN CELL VOLUME 81 fl (80.0-100.0); MEAN CORPUSCULAR HEMOGLOBIN 26 pg (27-31); MEAN CORPUSCULAR HGB CONC 33 g/dl (33.0-37.0); MEAN PLATELET VOLUME 8.7 fl (7.4-10.4); MONO # 0.6 K/mm3 (0.1-0.6); MONO % 8.4 % (1.7-9.3); PLATELET COUNT 200 K/mm3 (130-400); RED BLOOD COUNT 5.22 M/mm3 (4.10-5.30); REDCELL DISTRIBUTION WIDTH-CV 14.9 % (11.5-14.5)
[2021-10-22 08:09] LABS: ALBUMIN 3.9 gm/dL (3.5-5.0); BILIRUBIN,TOTAL 0.7 mg/dL (0.2-1.2); C-REACTIVE PROTEIN 0.75 mg/dL (0.00-0.50); CALCIUM 9.1 mg/dL (8.4-10.2); CREATININE, serum 0.84 mg/dL (0.57-1.11); POTASSIUM 3.9 mmol/L (3.5-4.5); TOTAL PROTEIN 7.6 gm/dL (6.2-8.1)
[2021-10-22] MEDS ORDERED: POLYMYXIN B/TRIMETH OD (09:24)
[2021-10-22 09:25] VITALS: BP 111/71; PULSE 85
== END 2021-10-22 09:45 | disposition home or self-care (01) ==
LOC: COL.ER 06:37
PROVIDERS: Emergency Medicine
DX: L03.213 Periorbital cellulitis (principal); Z88.1 Allergy status to other antibiotic agents
CPT/HCPCS: J1170; J2270; J2405; Q9967

== ENCOUNTER 2021-10-24 05:53 | Emergency (ER) | payer MEDICARE, MEDICAID ==
[~2021-10-24] VITALS: Ht 162.6 cm; Wt 95.5 kg
[~2021-10-24 05:53] MED LIST changes: +POLYMYXIN B/TRIMETH OD
[2021-10-24 06:02] VITALS: TEMP 99.5
[2021-10-24 08:42] VITALS: BP 150/85; PULSE 78
== END 2021-10-24 09:00 | disposition home or self-care (01) ==
LOC: COL.ER 05:53
DX: J95.00 Unspecified tracheostomy complication (principal); J04.10 Acute tracheitis without obstruction
CPT/HCPCS: J2060; J2270; J7030

== ENCOUNTER 2021-11-04 11:13 | Day surgery (SDC) | payer MEDICARE, MEDICAID ==
[~2021-11-04] VITALS: Ht 165.1 cm; Wt 92.1 kg
[2021-11-04 12:19] VITALS: BP 145/89; PULSE 72; TEMP 97.4
[2021-11-04] MEDS ORDERED: URECHOLINE PO (12:47)
[2021-11-04] MEDS ORDERED: [UNRECOGNIZED DRUG - OTHER] PO (12:48)
[2021-11-04] MEDS ORDERED: REQUIP3 MG PO (12:48)
[2021-11-04] MEDS ORDERED: CELEXA 20MG20 MG/TAB PO (12:49)
[2021-11-04] MEDS ORDERED: LASIX 40MG TABL40 MG PO (12:49)
[2021-11-04] MEDS ORDERED: RT ADVAIR 228 DISKUS IH (12:50)
[2021-11-04] MEDS ORDERED: QUDEXY XR200 MG PO (12:51)
[2021-11-04] MEDS ORDERED: TIROSINT100 MC1 PO (12:51)
[2021-11-04] MEDS ORDERED: ZANAFLEX2 MG PO (12:52)
[2021-11-04] MEDS ORDERED: K-DUR20 MEQ PO (12:53)
[2021-11-04] MEDS ORDERED: KEPPRA 500MG500 MG PO (12:54)
[2021-11-04 13:03] VITALS: BP 113/51; PULSE 84
--- NOTE | 2021-11-04 13:03 | NUR ---
Patient returns to room 8 per cart from surgery accompanied by Robert Catherine CRNA and Justyn RN. Patient is awake and trach in place. Occasional coughing. Temp 97.3 and room air sats 100%. IV fluids infusing right port and site is free of redness. Siderails up x2 and call light in reach.
[2021-11-04 13:18] VITALS: BP 121/63; PULSE 80
--- NOTE | 2021-11-04 13:18 | NUR ---
Resting with eyes closed and offers no complaints of pain or any difficulty breathing.
[2021-11-04 13:33] VITALS: BP 134/68; PULSE 70
--- NOTE | 2021-11-04 13:33 | NUR ---
Resting and offers no complaints. States that she is feeling ready to go home. IV fluids discontinued and port a catheter was deaccessed after being flushed with normal saline and 500IU of Heparin. Site covered with bandaid. No bleeding or swelling at the site. Patient dresses self.
--- NOTE | 2021-11-04 13:51 | NUR ---
Dismissal instructions given and patient voices understanding of these. Provided office number for any questions and concerns.
--- NOTE | 2021-11-04 14:03 | NUR ---
Patient dismissed to home driven by daughter and taken to the emergency room entrance per wheelchair and assisted into private vehicle by this nurse and dismissed to home with instructions in hand.
== END 2021-11-04 14:03 | disposition home or self-care (01) ==
LOC: SDCO 11:13
DX: R06.03 Acute respiratory distress (principal); G90.3 Multi-system degeneration of the autonomic nervous system; I27.20 Pulmonary hypertension, unspecified; J84.10 Pulmonary fibrosis, unspecified; Z87.09 Personal history of other diseases of the respiratory system
CPT/HCPCS: A7520; J0330; J1644; J2250; J2310; J2704; J3010

== ENCOUNTER 2021-12-25 13:21 | Emergency (ER) | payer MEDICARE, MEDICAID ==
[~2021-12-25] VITALS: Ht 165.1 cm; Wt 88.6 kg
[~2021-12-25 13:21] MED LIST changes: +K-DUR20 MEQ PO; +TIROSINT100 MC1 PO; +[UNRECOGNIZED DRUG - OTHER] PO
[2021-12-25 15:30] LABS: BASO % 0.4 % (0.0-2.0); EOS # 0.1 K/mm3 (0.0-0.7); GRAN # 5.5 K/mm3 (1.4-6.5); GRAN % 80.3 % (42.2-75.2); HEMATOCRIT 41.8 % (37.0-47.0); LYMPH # 0.5 K/mm3 (1.2-3.4); LYMPH % 7.2 % (20.0-51.0); MEAN CELL VOLUME 82 fl (80.0-100.0); MEAN CORPUSCULAR HEMOGLOBIN 27 pg (27-31); MEAN CORPUSCULAR HGB CONC 34 g/dl (33.0-37.0); MEAN PLATELET VOLUME 9.4 fl (7.4-10.4); MONO # 0.7 K/mm3 (0.1-0.6); MONO % 10.7 % (1.7-9.3); PLATELET COUNT 172 K/mm3 (130-400); RED BLOOD COUNT 5.13 M/mm3 (4.10-5.30); REDCELL DISTRIBUTION WIDTH-CV 13.5 % (11.5-14.5)
[2021-12-25 15:46] LABS: ALANINE AMINOTRANSFERASE 8 U/L (0-55); ALBUMIN 3.9 gm/dL (3.5-5.0); ALKALINE PHOSPHATASE 99 U/L (40-150); ANION GAP 13 mmol/L (7-16); AST,SGOT 11 U/L (5-34); BILIRUBIN,TOTAL 0.5 mg/dL (0.2-1.2); BLOOD UREA NITROGEN 10 mg/dL (10-20); C-REACTIVE PROTEIN 2.19 mg/dL (0.00-0.50); CALCIUM 8.8 mg/dL (8.4-10.2); CARBON DIOXIDE 24 mmol/L (22-29); CHLORIDE 101 mmol/L (98-107); GLUCOSE 101 mg/dL (70-99); POTASSIUM 3.8 mmol/L (3.5-4.5); SODIUM 138 mmol/L (136-145); TOTAL PROTEIN 7.6 gm/dL (6.2-8.1)
[2021-12-25 15:52] LABS: TROPONIN-I < 0.010 ng/mL (0.00-0.033)
[2021-12-25 16:22] VITALS: TEMP 102.7
[2021-12-25] MEDS ORDERED: DECADRON6 MG PO (18:31)
[2021-12-25] MEDS ORDERED: PHENERGAN25 MG RC (18:31)
[2021-12-25 18:52] VITALS: BP 97/54; PULSE 98
== END 2021-12-25 18:55 | disposition home or self-care (01) ==
LOC: COL.ER 13:21
PROVIDERS: Emergency Medicine
DX: U07.1 COVID-19 (principal); R11.2 Nausea with vomiting, unspecified; Z93.0 Tracheostomy status; Z28.310 Unvaccinated for COVID-19; Z73.0 Burn-out
CPT/HCPCS: J1100; J2270; J2550; J3010; J7030; M0222; Q0222

== ENCOUNTER 2022-01-10 12:39 | Inpatient (IN) | payer MEDICARE, MEDICAID ==
[~2022-01-10] VITALS: Ht 165.1 cm; Wt 93.7 kg
[2022-01-10] VITALS (374 sets, daily range): BP systolic 133; BP diastolic 95; PULSE 87; TEMP 98; O2SAT 86–100
[~2022-01-10 12:39] MED LIST changes: +DECADRON6 MG PO
[2022-01-10 13:14] LABS: BASO # 0.1 K/mm3 (0.0-0.2); BASO % 0.6 % (0.0-2.0); EOS # 0.1 K/mm3 (0.0-0.7); EOS % 1.2 % (0.0-4.0); GRAN # 6.9 K/mm3 (1.4-6.5); GRAN % 61.6 % (42.2-75.2); HEMATOCRIT 45.8 % (37.0-47.0); HEMOGLOBIN 15.3 g/dl (12.5-16.0); LYMPH # 3.1 K/mm3 (1.2-3.4); LYMPH % 27.6 % (20.0-51.0); MEAN CELL VOLUME 80 fl (80.0-100.0); MEAN CORPUSCULAR HEMOGLOBIN 27 pg (27-31); MEAN CORPUSCULAR HGB CONC 33 g/dl (33.0-37.0); MONO % 8.7 % (1.7-9.3); PLATELET COUNT 301 K/mm3 (130-400); RED BLOOD COUNT 5.73 M/mm3 (4.10-5.30); REDCELL DISTRIBUTION WIDTH-CV 13.3 % (11.5-14.5)
[2022-01-10 13:32] LABS: BILIRUBIN,TOTAL 0.5 mg/dL (0.2-1.2); CALCIUM 9.6 mg/dL (8.4-10.2); CREATININE, serum 0.99 mg/dL (0.57-1.11); POTASSIUM 3.7 mmol/L (3.5-4.5); TOTAL PROTEIN 8.7 gm/dL (6.2-8.1)
[2022-01-10 18:01] LABS: ARTERIAL BLOOD GAS BASE EXCESS -1.7 (-2-2); ARTERIAL BLOOD GAS HCO3 19.3 meq/L (22-26); ARTERIAL BLOOD GAS pH 7.53 (7.35-7.45)
[2022-01-10 18:02] LABS: ARTERIAL BLOOD GAS PCO2 23.9 mmHg (35-45)
[2022-01-11] VITALS (1414 sets, daily range): BP systolic 98–144; BP diastolic 59–91; PULSE 77–109; TEMP 97.9–99; O2SAT 79–100
--- NOTE | 2022-01-11 07:00 | NUR ---
PT RESTING IN BED. PT DENIES NEEDS AT THIS TIME. VSS. RT BEDSIDE.
--- NOTE | 2022-01-11 08:32 | NUR ---
Pt requesting to be suctioned. Pt's respirations in the 50's, pulse ox 100% on Ra. Trach suctioning completed X2. Pt's sats remained 100. Pt placed on heated oxygen per request. Pt encouraged to relax and slow breathing. Prn ativan given. RT called and notified.
[2022-01-11 09:07] LABS: HEMATOCRIT 39.7 % (37.0-47.0); MEAN CELL VOLUME 80 fl (80.0-100.0); MEAN CORPUSCULAR HEMOGLOBIN 27 pg (27-31); MEAN CORPUSCULAR HGB CONC 33 g/dl (33.0-37.0); MEAN PLATELET VOLUME 8.8 fl (7.4-10.4); PLATELET COUNT 209 K/mm3 (130-400); RED BLOOD COUNT 4.94 M/mm3 (4.10-5.30); REDCELL DISTRIBUTION WIDTH-CV 13.7 % (11.5-14.5)
[2022-01-11 09:08] LABS: HEMOGLOBIN 13.1 g/dl (12.5-16.0)
[2022-01-11 09:30] LABS: CALCIUM 9.1 mg/dL (8.4-10.2); CREATININE, serum 0.82 mg/dL (0.57-1.11); MAGNESIUM 1.8 mg/dL (1.6-2.6); POTASSIUM 3.5 mmol/L (3.5-4.5)
[2022-01-11 09:38] LABS: BAND 2 % (0-10); LYMPHOCYTE 6 % (20.0-51.0); NEUTROPHILS 92 % (42.0-75.2)
[2022-01-11 09:39] LABS: MICROCYTOSIS 1+; PLATELET ESTIMATE NORMAL (NORMAL)
--- NOTE | 2022-01-11 09:48 | NUR ---
web worker met with patient to complete intake. Patient states that she lives at home with her daughter Aimee ([phone]), son in law Emigdio ([phone]). Patient states that her daughter Danica just moved in as well. Patient states that between the three of them someone is always at the house providing cares for her. SHe has a trach and a feeding tube that she uses everyday. PCP is and she utilizes [facility] in [place] for perscription needs. SW spoke with patient about [facility] stay [facility]. Patient states " i couldn't handle it". Asked if the patient was interested in any type of hospice services which she replied "no".
--- NOTE | 2022-01-11 09:57 | NUR ---
notified of critial CO2
[2022-01-11 10:18] LABS: ARTERIAL BLD GAS O2 SATURATION 96.8 % (92-100); ARTERIAL BLD GAS TCO2 CT 18.8; ARTERIAL BLOOD GAS PCO2 25.3 mmHg (35-45); ARTERIAL BLOOD GAS PO2 81.6 mmHg (80-100); ARTERIAL BLOOD GAS pH 7.47 (7.35-7.45)
--- NOTE | 2022-01-11 12:09 | NUR ---
This RN went to administer Vanc, noted PT has a vanc allergy. Pt states she gets SOB and hives with Vanc. Pharmacist Rusty notified, allergy list updated, and Notified.
--- NOTE | 2022-01-11 14:09 | NUR ---
notified of low phos level.
--- NOTE | 2022-01-11 15:55 | NUR ---
SW contacted the patient's daughter Aimee. Notified daughter that at this time the patient is not interested in hospice which Aimee verbalized her agreement with stating " i think last time was to soon". She goes on to say " i think my mom signed up for hospice over li that her children are having to take care of her but wasn't mentally or emotionally ready". Verified with Aimee that at this time the patient is not receiving HH services from [facility], and Aimee states that she would be open to services again if the physicians feel like the patient needs it. Patient is still able to get around with the use of a wheelchair.
[2022-01-11 16:21] LABS: CALCIUM 8.8 mg/dL (8.4-10.2); CREATININE, serum 0.69 mg/dL (0.57-1.11)
[2022-01-12] VITALS (718 sets, daily range): BP systolic 113–140; BP diastolic 70–89; PULSE 63–91; TEMP 97.8–99; O2SAT 76–100
[2022-01-12 05:36] LABS: BASO % 0.1 % (0.0-2.0); GRAN % 89.5 % (42.2-75.2); HEMOGLOBIN 11.8 g/dl (12.5-16.0); LYMPH # 0.8 K/mm3 (1.2-3.4); LYMPH % 5.5 % (20.0-51.0); MEAN CELL VOLUME 83 fl (80.0-100.0); MEAN CORPUSCULAR HEMOGLOBIN 27 pg (27-31); MEAN CORPUSCULAR HGB CONC 32 g/dl (33.0-37.0); MONO # 0.6 K/mm3 (0.1-0.6); MONO % 4.3 % (1.7-9.3); PLATELET COUNT 214 K/mm3 (130-400); RED BLOOD COUNT 4.41 M/mm3 (4.10-5.30); REDCELL DISTRIBUTION WIDTH-CV 13.8 % (11.5-14.5)
[2022-01-12 05:44] LABS: HEMATOCRIT 36.4 % (37.0-47.0)
[2022-01-12 05:54] LABS: CALCIUM 8.9 mg/dL (8.4-10.2); CREATININE, serum 0.71 mg/dL (0.57-1.11); POTASSIUM 4.3 mmol/L (3.5-4.5)
--- NOTE | 2022-01-12 07:00 | NUR ---
Pt resting in bed. VSS. No needs at this time.
--- NOTE | 2022-01-12 14:37 | NUR ---
Pt complained of nausea. Pt had two episodes of diarrhea and one epidose of vomitting. TF stopped at this time per Pt request.
[2022-01-12] MEDS ORDERED: DESYREL 50MG50 MG PO (14:56)
[2022-01-12] MEDS ORDERED: AMBIEN 10MG10 MG PO (14:57)
[2022-01-12] MEDS ORDERED: PROAIR HFA0.09 MG/AC IH (14:58)
[2022-01-12] MEDS ORDERED: PHENERGAN25 MG RC (14:58)
[2022-01-12] MEDS ORDERED: PHENERGAN 25 TA25 MG PO (14:59)
[2022-01-12] MEDS ORDERED: INDERAL 10MG10 MG PO (14:59)
[2022-01-12] MEDS ORDERED: URECHOLINE PO (15:00)
[2022-01-12] MEDS ORDERED: PROAMATINE10 MG PO (15:00)
[2022-01-12] MEDS ORDERED: REQUIP3 MG PO (15:01)
[2022-01-12] MEDS ORDERED: LASIX 40MG TABL40 MG PO (15:01)
[2022-01-12] MEDS ORDERED: QUDEXY XR200 MG PO (15:02)
[2022-01-12] MEDS ORDERED: CELEXA 20MG20 MG/TAB PO (15:02)
[2022-01-12] MEDS ORDERED: RT ADVAIR 228 DISKUS IH (15:02)
[2022-01-12] MEDS ORDERED: EUTHYROX100 MCG PO (15:03)
[2022-01-12] MEDS ORDERED: ZANAFLEX CAPSULE2 MG PO (15:03)
[2022-01-12] MEDS ORDERED: KLOR-CON20 MEQ PO (15:04)
[2022-01-12] MEDS ORDERED: KEPPRA 500MG500 MG PO (15:05)
--- NOTE | 2022-01-12 17:20 | NUR ---
1700-Report given to Mariah HOOD. All questions answered. 1720-Pt transfered up to room 316. All belonging transfered. Daughter bedside. Mariah HOOD notified of arrival. Pt has call light.
--- NOTE | 2022-01-12 17:20 | NUR ---
Patient arrived to the floor from ICU. Shift assessment completed.
[2022-01-13 00:24] VITALS: BP 135/83; PULSE 80; TEMP 98.6
--- NOTE | 2022-01-13 00:52 | NUR ---
PT HAD A MUCOUS PLUG AND WAS FEELING SOA W TRACH. RT CALLED AND SUCTIONED. CHERYL CALLED FOR DOSE OF ATIVAN PT WAS HAVING A PANIC ATTACK. CALM NOW AFTER SUCTIONED AND MEDS.
--- NOTE | 2022-01-13 02:54 | NUR ---
TX GIVEN VIA MASK. PT TAKEN OFF HHF AND CAPPED INNER CANNULA IN PLACE AT THIS TIME.
[2022-01-13 04:03] VITALS: BP 105/66; PULSE 81; TEMP 97.4
[2022-01-13 06:14] LABS: BASO % 0.1 % (0.0-2.0); GRAN # 9.2 K/mm3 (1.4-6.5); GRAN % 86.6 % (42.2-75.2); HEMOGLOBIN 11.7 g/dl (12.5-16.0); LYMPH # 0.9 K/mm3 (1.2-3.4); LYMPH % 8.2 % (20.0-51.0); MEAN CELL VOLUME 85 fl (80.0-100.0); MEAN CORPUSCULAR HEMOGLOBIN 27 pg (27-31); MEAN CORPUSCULAR HGB CONC 32 g/dl (33.0-37.0); MEAN PLATELET VOLUME 9.4 fl (7.4-10.4); MONO # 0.5 K/mm3 (0.1-0.6); MONO % 4.3 % (1.7-9.3); PLATELET COUNT 196 K/mm3 (130-400); RED BLOOD COUNT 4.31 M/mm3 (4.10-5.30); REDCELL DISTRIBUTION WIDTH-CV 13.9 % (11.5-14.5)
[2022-01-13 06:19] LABS: HEMATOCRIT 36.5 % (37.0-47.0)
[2022-01-13 06:30] LABS: CREATININE, serum 0.75 mg/dL (0.57-1.11)
[2022-01-13 07:56] VITALS: BP 105/63; PULSE 83; TEMP 97.4
--- NOTE | 2022-01-13 08:10 | NUR ---
ENTERED PT ROOM, PT UPSET ABOUT MRSA PRECAUTIONS AND NOT BEING TOLD ABOUT THIS PREVIOUSLY IN HOSPITAL STAY. EDUCATED PT ON MEDICATIONS GIVEN. PT REQUESTING TO TAKE CRUSHED MEDS THROUGH PEG TUBE SLOWLY IN TWO SEPARATE ADMINISTRATIONS WITH ABOUT AN HOUR IN BETWEEN. FIRST HALF OF CRUSHED MEDS DISOLVED IN WARM WATER AND ADMINISTERED VIA PEG TUBE, FLUSHED BEFORE AND AFTER. PT BEGAN TO HAVE ERUCTATION AND PT REQUESTED ZOFRAN. ZOFRAN PROVIDED. ASSESSMENT PERFORMED, PORT IN PLACE, ZOSYN INFUSING. MORPHINE AND ATIVAN GIVEN PER PT REQUEST. NO OTHER NEEDS
[2022-01-13] MEDS ORDERED: VIBRAMYCIN50 MG/5 ML PO (09:40)
[2022-01-13] MEDS ORDERED: AUGMENTIN ES-6125 ML PO (09:40)
--- NOTE | 2022-01-13 10:13 | NUR ---
ENTERING ROOM TO ADMINISTER OTHER HALF OF MORNING MEDICATION VIA PEG TUBE . MORPHINE ADMITTED PER PT REQUEST, SOLUMEDROL GIVEN PER EMAR. SOCIAL WORK ENTERING THE ROOM TO DISCUSS DISCHARGE PLANNING. PT REQUESTING TO SEE THERAPIST TO PREVENT HER FROM "DOING SOMETHING". SOCIAL WORKED IF PT HAS A PLAN AND PT DENIED A PLAN BUT REPORTS SUICIDAL THOUGHTS EARLY LAST WEEK. PT REPORTS HER ADVANCING DISEASE LEADS TO LOSS OF FUNCTION IN BUE AND BLE. SHE REPORTS STARTING TO LOSE FUNCTION OF BUE AND DID NOT WANT HER DAUGHTER TO KNOW. SHE THEN REPORTED SHE HAD BEEN ON HOSIPICE BUT DOESNT WANT TO BE IN A HOSPICE HOUSE UNTIL "I ONLY HAVE 3 DAYS TO LIVE". TIFFANI HUGO MADE AWARE OF PT COMMENTS ABOUT SUICIDAL IDEATION.
[2022-01-13] MEDS ORDERED: ATIVAN 0.50.5 MG/TAB PEG (10:15)
[2022-01-13 11:39] VITALS: BP 117/67; PULSE 72; TEMP 97.1
--- NOTE | 2022-01-13 12:00 | NUR ---
PT GIVEN MORPHINE PER PT REQUEST. HEPARIN INJECTED TO PORT, PORT DEACCESSED AND JONES REMOVED, PERIPHERAL IV REMOVED. DISCHARGE EDUCATION PROVIDED, PT VERBALIZED UNDERSTANDING. NO OTHER NEEDS
--- NOTE | 2022-01-13 12:45 | NUR ---
PT TAKEN DOWN VIA WHEELCHAIR WITH PT BELONGINGS, NO OTHER NEEDS
--- NOTE | 2022-01-13 13:00 | NUR ---
Supervisor [employer]aper [employer]iveries attended clinical rounds with the team and patient is ready for discharge today. SW met with patient to provide and review IM form. Patient verbalized understanding then provided signature. SW placed form in chart then gave copy to patient. SW discussed Home Health services with patient, which she has had in the past. Patient declined services at this time, however did express interest in mental health services. Patient would like to be set up with telehealth if possible before she "does something". Patient states she has promised her children she will not take her own life. SW asked patient when she last had suicidal ideations and she stated last week. SW asked patient if she had a plan and she stated no, but also remarked that she takes many different medications that she could overdose on. SW asked patient if she feels safe going home and she stated yes. SW and RN were present for these remarks and they were reported to Hospitalist who agreed to discharge with outpatient follow up for mental health services. SW discussed giving a referral to [facility] counseling and patient was agreeable to this. SW contacted intake at [facility] and they will make contact with patient however reported that they have a wait list at this time as most providers to here in [place]. SW contacted patient's daughter, Aimee to review the above information. SW also discussed the [place] [facility] Crisis Hotline with Aimee for utilization if patient feels she is in crisis. Discharge Plan: Home
== END 2022-01-13 12:45 | disposition home health service (06) | DRG 189 ==
LOC: COL.ER 12:39 → ICU 15:48 → COL.ER 16:21 → MEDICAL 01-12 17:58
PROVIDERS: Emergency Medicine; Family Medicine; Internal Medicine Pulmonary Disease; Student in an Organized Health Care Education/Training Program; ADMIT Internal Medicine
DX: J96.20 Acute and chronic respiratory failure, unspecified whether with hypoxia or hypercapnia (principal); E87.2 Acidosis; G90.3 Multi-system degeneration of the autonomic nervous system; E87.3 Alkalosis; F41.9 Anxiety disorder, unspecified; K31.84 Gastroparesis; J45.909 Unspecified asthma, uncomplicated; J84.10 Pulmonary fibrosis, unspecified; G47.00 Insomnia, unspecified; E03.9 Hypothyroidism, unspecified; E66.9 Obesity, unspecified; I35.0 Nonrheumatic aortic (valve) stenosis; G43.909 Migraine, unspecified, not intractable, without status migrainosus; I27.20 Pulmonary hypertension, unspecified; F32.A Depression, unspecified; G89.29 Other chronic pain; G25.81 Restless legs syndrome; R33.9 Retention of urine, unspecified; G40.909 Epilepsy, unspecified, not intractable, without status epilepticus; I25.2 Old myocardial infarction; Z93.1 Gastrostomy status; Z90.710 Acquired absence of both cervix and uterus; Z88.6 Allergy status to analgesic agent; Z88.1 Allergy status to other antibiotic agents; Z88.8 Allergy status to other drugs, medicaments and biological substances; Z86.16 Personal history of COVID-19; Z68.32 Body mass index [BMI] 32.0-32.9, adult; Z91.51 Personal history of suicidal behavior; Z79.891 Long term (current) use of opiate analgesic; Z23 Encounter for immunization
CPT/HCPCS: 99233-AI; 99239; A4314; J1644; J1650; J2060; J2270; J2405; J2543; J2920; J2930; J3480; J7030; Q9967

== ENCOUNTER 2022-03-15 08:55 | Emergency (ER) | payer MEDICARE, MEDICAID ==
[~2022-03-15] VITALS: Ht 165.1 cm; Wt 90.9 kg
[~2022-03-15 08:55] MED LIST changes: +ATIVAN 0.50.5 MG/TAB PEG; +AUGMENTIN ES-6125 ML PO; +EUTHYROX100 MCG PO; +VIBRAMYCIN50 MG/5 ML PO
[2022-03-15 09:11] VITALS: TEMP 97.8
[2022-03-15 10:02] LABS: BASO % 0.5 % (0.0-2.0); EOS # 0.1 K/mm3 (0.0-0.7); EOS % 1.5 % (0.0-4.0); GRAN # 3.3 K/mm3 (1.4-6.5); GRAN % 53.1 % (42.2-75.2); HEMATOCRIT 38.6 % (37.0-47.0); HEMOGLOBIN 12.5 g/dl (12.5-16.0); LYMPH # 1.9 K/mm3 (1.2-3.4); LYMPH % 31.4 % (20.0-51.0); MEAN CELL VOLUME 86 fl (80.0-100.0); MEAN CORPUSCULAR HEMOGLOBIN 28 pg (27-31); MEAN CORPUSCULAR HGB CONC 32 g/dl (33.0-37.0); MONO # 0.8 K/mm3 (0.1-0.6); MONO % 13.2 % (1.7-9.3); PLATELET COUNT 182 K/mm3 (130-400); RED BLOOD COUNT 4.47 M/mm3 (4.10-5.30); REDCELL DISTRIBUTION WIDTH-CV 14.8 % (11.5-14.5)
[2022-03-15 10:17] LABS: ALBUMIN 3.9 gm/dL (3.5-5.0); BILIRUBIN,TOTAL 0.7 mg/dL (0.2-1.2); CALCIUM 9.1 mg/dL (8.4-10.2); CREATININE, serum 0.88 mg/dL (0.57-1.11); POTASSIUM 3.6 mmol/L (3.5-4.5); TOTAL PROTEIN 7.3 gm/dL (6.2-8.1)
[2022-03-15 11:05] VITALS: BP 109/86
[2022-03-15] MEDS ORDERED: DOXYCYCLINE 10100 MG PO (11:47)
[2022-03-15] MEDS ORDERED: CEPHALEXIN500 M1 PO (11:47)
[2022-03-15 12:20] VITALS: PULSE 74
== END 2022-03-15 12:20 | disposition home or self-care (01) ==
LOC: COL.ER 08:55
PROVIDERS: Emergency Medicine
DX: L02.211 Cutaneous abscess of abdominal wall (principal); Z20.822 Contact with and (suspected) exposure to COVID-19; Z93.1 Gastrostomy status; Z88.1 Allergy status to other antibiotic agents; Z28.311 Partially vaccinated for COVID-19
CPT/HCPCS: J2270; J2405; J2550; Q9967

== ENCOUNTER 2022-05-24 16:16 | Inpatient (IN) | payer MEDICARE, MEDICAID ==
[~2022-05-24] VITALS: Ht 162.6 cm; Wt 97.5 kg
[~2022-05-24 16:16] MED LIST changes: +AMBIEN 10MG10 MG PEG; +CELEXA 20MG20 MG/TAB PEG; +CEPHALEXIN500 M1 PO; +DESYREL 50MG50 MG PEG; +DOXYCYCLINE 10100 MG PO; +EUTHYROX100 MCG PEG; -EUTHYROX100 MCG PO; +KLOR-CON20 MEQ PEG; +PHENERGAN 25 TA25 MG PEG; +PROAMATINE10 MG PEG; +QUDEXY XR200 MG PEG; +REQUIP3 MG PEG; +URECHOLINE PEG; +ZANAFLEX CAPSULE2 MG PEG
[2022-05-24 17:28] LABS: BASO # 0.1 K/mm3 (0.0-0.2); BASO % 0.6 % (0.0-2.0); EOS # 0.2 K/mm3 (0.0-0.7); EOS % 2.1 % (0.0-4.0); GRAN # 4.3 K/mm3 (1.4-6.5); GRAN % 54.7 % (42.2-75.2); HEMOGLOBIN 12.2 g/dl (12.5-16.0); LYMPH # 2.1 K/mm3 (1.2-3.4); LYMPH % 27.4 % (20.0-51.0); MEAN CELL VOLUME 82 fl (80.0-100.0); MEAN CORPUSCULAR HEMOGLOBIN 27 pg (27-31); MEAN CORPUSCULAR HGB CONC 34 g/dl (33.0-37.0); MEAN PLATELET VOLUME 8.9 fl (7.4-10.4); MONO # 1.1 K/mm3 (0.1-0.6); MONO % 14.6 % (1.7-9.3); PLATELET COUNT 218 K/mm3 (130-400); RED BLOOD COUNT 4.46 M/mm3 (4.10-5.30); REDCELL DISTRIBUTION WIDTH-CV 12.3 % (11.5-14.5)
[2022-05-24 17:32] LABS: HEMATOCRIT 36.4 % (37.0-47.0)
[2022-05-24 17:47] LABS: ALBUMIN 3.3 gm/dL (3.5-5.0); BILIRUBIN,TOTAL 0.4 mg/dL (0.2-1.2); CALCIUM 8.9 mg/dL (8.4-10.2); CREATININE, serum 0.76 mg/dL (0.57-1.11); POTASSIUM 3.7 mmol/L (3.5-4.5); TOTAL PROTEIN 6.9 gm/dL (6.2-8.1)
[2022-05-24] MEDS ORDERED: KADIAN20 MG PO (21:14)
[2022-05-24] MEDS ORDERED: VALIUM 10MG10 MG/TAB PEG (21:15)
[2022-05-24] MEDS ORDERED: MORPHINE 1515 MG/TAB PEG (21:15)
[2022-05-24] MEDS ORDERED: INDERAL 10MG10 MG PO (21:16)
[2022-05-24] MEDS ORDERED: K-DUR20 MEQ PO (21:16)
[2022-05-24] MEDS ORDERED: LASIX 20MG TABL20 MG PEG (21:16)
[2022-05-24] MEDS ORDERED: QUDEXY XR200 MG PO (21:16)
[2022-05-24 21:44] VITALS: BP 111/85; PULSE 90; TEMP 98.3
[2022-05-24] MEDS ORDERED: KADIAN30 MG PEG (22:04)
[2022-05-24] MEDS ORDERED: TYLENOL 500MG500 MG PEG (22:04)
[2022-05-24 23:30] VITALS: BP 103/68; PULSE 78; TEMP 97.6
[2022-05-25] VITALS (7 sets, daily range): BP systolic 98–119; BP diastolic 66–77; PULSE 75–94; TEMP 97.6–99.1
--- NOTE | 2022-05-25 01:03 | NUR ---
Patient arrived to medical unit from ER at approximately 2140. Compalins of pain to abdomen. Received IV Morphine after it was ordered. IV fluids started per orders, port to right chest. Received IV ABX per orders. Voices no further questions, needs, or concerns at this time. In bed with call light within reach.
[2022-05-25 05:35] LABS: BASO % 0.4 % (0.0-2.0); EOS # 0.1 K/mm3 (0.0-0.7); EOS % 1.9 % (0.0-4.0); HEMATOCRIT 37.4 % (37.0-47.0); HEMOGLOBIN 11.7 g/dl (12.5-16.0); LYMPH # 2.2 K/mm3 (1.2-3.4); LYMPH % 29.9 % (20.0-51.0); MEAN CORPUSCULAR HEMOGLOBIN 27 pg (27-31); MEAN CORPUSCULAR HGB CONC 31 g/dl (33.0-37.0); MEAN PLATELET VOLUME 9.4 fl (7.4-10.4); MONO # 0.9 K/mm3 (0.1-0.6); MONO % 12.3 % (1.7-9.3); PLATELET COUNT 175 K/mm3 (130-400); RED BLOOD COUNT 4.31 M/mm3 (4.10-5.30); REDCELL DISTRIBUTION WIDTH-CV 12.4 % (11.5-14.5)
[2022-05-25 05:45] LABS: CALCIUM 8.4 mg/dL (8.4-10.2); CREATININE, serum 0.74 mg/dL (0.57-1.11); POTASSIUM 3.6 mmol/L (3.5-4.5)
[2022-05-25 05:48] LABS: MEAN CELL VOLUME 87 fl (80.0-100.0)
--- NOTE | 2022-05-25 06:31 | NUR ---
Patient has received PRN Morphine about every 2 hours as requested for pain. Also requested PRN Phenergan. Notified YAEL Pabon, new order received, and given per orders. Patient needed suctioned once this shift, thick yellow sputum. Sent sputum sample to lab. Patient very thankful of cares. Voices no further questions, needs, or concerns at this time. In bed with call light within reach.
[2022-05-25 07:31] LABS: COLLECTION METHOD CATHETER
[2022-05-25 07:39] LABS: MUCOUS Present (NOT PRESENT); SQUAMOUS EPITHELIAL 0-2 /hpf (0-10); URINE BACTERIA None Seen /hpf (NONE SEEN); URINE RBC 0-2 /hpf (0-2)
[2022-05-25 07:40] LABS: PH 5.5 (5.0-8.5); URINE APPEARANCE Hazy (CLEAR/HAZY); URINE BLOOD Negative (NEGATIVE); URINE COLOR Yellow (YELLOW); URINE GLUCOSE Negative (NEGATIVE); URINE KETONE Negative (NEGATIVE); URINE NITRATE Negative (NEGATIVE); URINE PROTEIN(semi-quant) Negative (NEGATIVE); URINE UROBILINOGEN 0.2 E.U/dL (0.2-1.0)
--- NOTE | 2022-05-25 08:00 | NUR ---
Pt awake and sitting up in bed. Morning medications administered per eMAR. Shift assessment completed. Pt complains of ABD pain; Morphine administered by SANA Curry. Trach in place; O2 sat @ 95% on RA. Telemetry on. Port in R chest CDI with NS infusing at 50mL/hr. PEG Tube in place. Pt refused to wear SCDs. No further request at this time. Call light within reach.
--- NOTE | 2022-05-25 15:35 | NUR ---
Elevator Examiner met with patient to discuss discharge planning. Patient lives in [place] with her daughter, Aimee and Aimee's . Patient sees Dr. Bales for primary care and obtains medications from the [facility] in [place] as her son in law works in and picks up her medications. Patient has a hospital bed, walker, wheelchair, and home oxygen. Patient also has trach supplies from [facility]. Patient reports her daughter assists her with ADLS as needed. Patient has DPOA-HC in EMR which designates her daughter, Aimee or son, Emigdio. Patient plans to return home at time of discharge. Patient is interested in telehealth therapy and was agreeable to have SW contact [facility] and give referral. SW contacted [facility] who will add her to the waitlist and requested SW call at time of discharge. Discharge Plan: Home
[2022-05-26] VITALS (17 sets, daily range): BP systolic 93–161; BP diastolic 32–78; PULSE 59–80; TEMP 96.3–98.4
--- NOTE | 2022-05-26 00:19 | NUR ---
SHIFT NURSING ASSESSMEMENT COMPLETED. THE PATIENT DID NOT APPEAR TO BE IN ANY DISTRESS UPON ASSESSMENT. THE PATIENT DID REPORT ABD AND HEADACHE PAIN 04/17. MEDICATIONS TO FOLLOW ORDERED. THE PATIENT DENIED OTHER NEEDS AT THIS TIME. CALL LIGHT AND PERSONAL BELONGINGS WITHIN REACH. BED IN LOW POSITION. WILL MONITOR.
--- NOTE | 2022-05-26 08:00 | NUR ---
Pt awake and laying in bed. Morning medications administered by SANA Gaviria. Shift assessment complete. Trach tube in place. Portacath in R upper chest CDI. Telemetry on. PEG tube in place. No further requests at this time. Contact precautions remain in place. Call light within reach.
--- NOTE | 2022-05-26 14:31 | NUR ---
Patient to have J tube placed today. CHIKI met with patient and advised she will collaborate with Dietitian and send any new DME orders to [facility]. SW also informed patient that Home Health can be set up to assist with education.
--- NOTE | 2022-05-26 18:45 | NUR ---
Pt back from OR she states she is in pain, reports that she doesn't have the will to live any longer. When assessing the suicide risk assessment and if she has a plan, she states "well yea I would just take a bunch of pills like last time". Goes on to explain previous attempt along with a suicidal note. Assessment reported to HSARATH Pabon.
--- NOTE | 2022-05-26 23:41 | NUR ---
PCT SITTING WITH PT DUE TO SI. PATIENT VITALS ARE CHARTED UNDER NORMAL VITALS. THIS NURSE HAS REVIEWED.
[2022-05-27] VITALS (27 sets, daily range): BP systolic 98–133; BP diastolic 57–82; PULSE 74–86; TEMP 97.8–98.4
--- NOTE | 2022-05-27 01:51 | NUR ---
05/26/221829: PATIENT BEING PLACED ON SI PRECAUTIONS AT SHIFT CHANGE. PATIENT IS NOW 1:1 WITH SITTER. PATIENT HAS 2 DAUGHTERS PRESENT AT BEDSIDE. PATIENT STATES HER CONDITION CAUSES EXTREME PAIN ALL THE TIME. PATIENT STATES SHE WANTS TO MAKE SURE WE ARE BRINGING HER PRN MORPHINE EVERY 2 HOURS, OTHER MACARIO "I WILL NOT BE ABLE TO GET ON TOP OF PAIN UNLESS I HAVE THE MORPHINE EVERY 2 HOURS." THIS NURSE ASSURES PATIENT SHE WILL MAKE EVERY 2 HOUR ROUNDS TO ASSESS PAIN NEEDS. PATIENT STATES APPRECIATION. PATIENT STATES TO THIS NURSE THAT SHE WOULD NOT REALLY KILL HERSELF IN A HOSPITAL, SHE DOES BELIEVE IN ASSISTED SUICIDE AND HOPES OUR STATE WILL ALLOW IT EVENTUALLY. 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 PATIENT DENIES ANY NEEDS OR CONCERS AT THIS TIME AND HAS CALL LIGHT WITHIN REACH.
--- NOTE | 2022-05-27 05:22 | NUR ---
PATIENT STATES HAVING A SITTER AGGITATES HER SHE FEELS THE DAY SHIFT RN DIDN'T TAKE HER WORDS SHE MEANT THEM. PATIENT STATES SHE WOULD NEVER ATTMEPT TO KILL HERSELF IN THE HOSPITAL. PATIENT DOES STATE THAT SHE IS PART OF MEDICAL RESEARCH FOR [place] IN REGARDS TO ASSISTED SUICIDE AND SHE IS FOR THAT HER PROGNOSIS IS NOT GOOD. PATIENT STATES SHE WILL DO ANYTHING TO LIVER FOR HER DAUGHTHERS THEY ARE HER WORLD. PATIENT HAD COMPLAINTS OF PAIN EVERY 2 HOURS, WHICH SHE TOOK MORPHINE PER EMAR. PATIENT DENIES NEEDS OR CONCERNS AND CONTINUES TO HAVE CALL LIGHT WITHIN REACH.
--- NOTE | 2022-05-27 08:11 | NUR ---
Pt assessment complete. Pt is laying in bed, she is frustrated stating that she feels like she is being treated like a child. When she arrived back from the OR she was frustrated because she feels like things never go as planned and there are frequently complications, this is the reason she stated what she did yesterday. She does not want to currently end her life, she wishes "the disease would progress enough that it would be over". She reports she is in a lot of pain and requesting pain meds as well as valium. Discussed the POC with patient who verbalizes understanding and states she acknowledges the steps that have to be taken by the hospital due to the words she spoke yesterday.
--- NOTE | 2022-05-27 12:00 | NUR ---
Pt tolerated flushing of g tube and medicagtion administration. Tube feeding started at this time. POC discussed with patient.
--- NOTE | 2022-05-27 12:52 | NUR ---
Patient was reported to have suicidal thoughts statements last night. CHIKI contacted [facility] and requested screening, which was completed via zoom. Patient was cleared to return home and [place] to fax over a safety plan. CHIKI met with patient to discuss Home Health and patient would like a referral sent to [facility]. CHIKI contacted Justino at [facility] and faxed referral. CHIKI also faxed DME Orders to [facility] as patient will need a pump for her new J tube. Discharge Plan: Home with
[2022-05-27 13:50] LABS: BASO % 0.7 % (0.0-2.0); EOS # 0.3 K/mm3 (0.0-0.7); EOS % 5.9 % (0.0-4.0); GRAN # 2.5 K/mm3 (1.4-6.5); GRAN % 53.8 % (42.2-75.2); HEMOGLOBIN 11.6 g/dl (12.5-16.0); LYMPH # 1.5 K/mm3 (1.2-3.4); LYMPH % 32.2 % (20.0-51.0); MEAN CELL VOLUME 87 fl (80.0-100.0); MEAN CORPUSCULAR HEMOGLOBIN 27 pg (27-31); MEAN CORPUSCULAR HGB CONC 31 g/dl (33.0-37.0); MEAN PLATELET VOLUME 8.6 fl (7.4-10.4); MONO # 0.3 K/mm3 (0.1-0.6); PLATELET COUNT 189 K/mm3 (130-400); RED BLOOD COUNT 4.26 M/mm3 (4.10-5.30); REDCELL DISTRIBUTION WIDTH-CV 12.4 % (11.5-14.5)
[2022-05-27 13:56] LABS: HEMATOCRIT 36.9 % (37.0-47.0)
[2022-05-27 14:01] LABS: CALCIUM 8.8 mg/dL (8.4-10.2); CREATININE, serum 0.77 mg/dL (0.57-1.11); POTASSIUM 3.6 mmol/L (3.5-4.5)
--- NOTE | 2022-05-27 19:28 | NUR ---
PATIENT LAYING IN BED WATCHING TELEVSION AT THIS TIME. ENTERAL FEED IS RUNNING AT 40 ML/HR WHICH WILL INCREASE TO 80 ML/HR WHICH IS GOAL FEEDING RATE. PATIENT DENIES ANY NEEDS AT THIS TIME AND HAS CALL LIGHT WITHIN REACH. PATIENT ENCOURAGED TO USE CALL LIGHT WITH NEEDS OR CONCERNS. PATIENT STATES SHE IS UNABLE TO HEAR US WHEN SHE USES CALL LIGHT. MAINTENANCE IS AWARE OF ISSUE.
--- NOTE | 2022-05-27 21:37 | NUR ---
PT STATED THAT SHE DID NOT WANT HER TREATMENTS AT THIS TIME. PT SLEEPING UPON EBTRANCE INTO ROOM. PT EASILY AROUSABLE AND ABLE TO HAVE CONVERSATION. NO DISTRESS NOTED. CALL LIGHT WITHIN REACH.
[2022-05-28 00:40] VITALS: BP 115/62; PULSE 80; TEMP 98
--- NOTE | 2022-05-28 04:21 | NUR ---
PATIENT DID NOT TOLERATE FEEDS ONCE AT 80 ML/HR. PATIENT TOLERATED AT 50 ML/HR AND STATES SHE DOESN'T FEEL SHE WANTS OR NEEDS TO GO OVER 50 ML/HR DUE TO DISCOMFORT. THIS NURSE ASKED PATIENT IF SHE FELT HER MORPHINE 4 MG Q2H MIGHT BE THE CULPRIT OF HER STOMACH UPSET AND PATIENT DENIED STATING SHE KNOWS IT WAS THE JEVITY.PATIENT REPEATEDLY STATES SHE WILL BE GOING HOME THIS DATE AND WILL NOT LET THE FEED RATE STOP HER.
[2022-05-28 05:02] VITALS: BP 104/75; PULSE 80; TEMP 98.3
[2022-05-28 08:00] VITALS: BP 117/76; PULSE 82; TEMP 98.3
--- NOTE | 2022-05-28 08:00 | NUR ---
Patient laying in bed, A&Ox4. VSS. IV CDI. Tach intact. Pain medication given when requested. Contact precautions in place. No further needs expressed. Call light within reach
[2022-05-28] MEDS ORDERED: CARAFATE S1 GM/10 ML PO (09:16)
[2022-05-28] MEDS ORDERED: PROTONIX 40MG T40 MG PO (09:16)
[2022-05-28 11:54] VITALS: BP 111/62; PULSE 86; TEMP 98.2
--- NOTE | 2022-05-28 12:43 | NUR ---
Discharge paperwork reviewed with the patient. Patient verbalized an understanding to follow doctors orders. Port deacessed, 5ml heparin IV. Tube feed stopped and J tube flushed. Intact. Patient getting dressed independently and waiting on daughter to arrive. Call light within reach
--- NOTE | 2022-05-28 13:00 | NUR ---
Patient taken to ER entrance to daughters car. Discharge paperwork with the patient and personal belongings. No further needs expressed
--- NOTE | 2022-05-28 14:23 | NUR ---
Patient is ready for discharge home today. CHIKI contacted [facility] and ensured the received DME order. Patient supplies are ready. CHIKI met with patient who advised they will pickling solution maker supplies on the way home. Patient's daughter to transport home. CHIKI contacted Justino at [facility] and faxed discharge orders. Discharge Plan: Home with [facility]
== END 2022-05-28 13:00 | disposition home health service (06) | DRG 392 ==
LOC: COL.ER 16:16 → MEDICAL 19:07
PROVIDERS: Emergency Medicine; Nurse Practitioner Family; Physician Assistant; Surgery; ADMIT Student in an Organized Health Care Education/Training Program
PROC: 0DH68UZ Insertion of Feeding Device into Stomach, Via Natural or Artificial Opening Endoscopic (ICD-10-PCS; 2022-05-26)
PROC: 0DP68UZ Removal of Feeding Device from Stomach, Via Natural or Artificial Opening Endoscopic (ICD-10-PCS; 2022-05-26)
PROC: 0DH63UZ Insertion of Feeding Device into Stomach, Percutaneous Approach (ICD-10-PCS; 2022-05-26)
PROC: 0DHA8UZ Insertion of Feeding Device into Jejunum, Via Natural or Artificial Opening Endoscopic (ICD-10-PCS; principal; 2022-05-26 14:00)
DX: K31.84 Gastroparesis (principal); G90.3 Multi-system degeneration of the autonomic nervous system; R45.851 Suicidal ideations; K21.9 Gastro-esophageal reflux disease without esophagitis; J45.909 Unspecified asthma, uncomplicated; I27.20 Pulmonary hypertension, unspecified; G25.81 Restless legs syndrome; G43.909 Migraine, unspecified, not intractable, without status migrainosus; G40.909 Epilepsy, unspecified, not intractable, without status epilepticus; E03.9 Hypothyroidism, unspecified; J84.10 Pulmonary fibrosis, unspecified; I35.0 Nonrheumatic aortic (valve) stenosis; G89.29 Other chronic pain; G47.00 Insomnia, unspecified; R33.8 Other retention of urine; Z86.73 Personal history of transient ischemic attack (TIA), and cerebral infarction without residual deficits; Z79.890 Hormone replacement therapy; Z79.899 Other long term (current) drug therapy; Z93.0 Tracheostomy status; Z93.1 Gastrostomy status; Z96.89 Presence of other specified functional implants; Z22.322 Carrier or suspected carrier of Methicillin resistant Staphylococcus aureus
CPT/HCPCS: OP; C9113; G0378; J0696; J1644; J2270; J2405; J2550; J2704; J3360; J7030; Q9967

== ENCOUNTER 2022-06-03 05:43 | Emergency (ER) | payer MEDICARE, MEDICAID ==
[~2022-06-03] VITALS: Ht 165.1 cm; Wt 93.2 kg
[~2022-06-03 05:43] MED LIST changes: +CARAFATE S1 GM/10 ML PO; +KADIAN20 MG PO; +KADIAN30 MG PEG; +LASIX 20MG TABL20 MG PEG; +MORPHINE 1515 MG/TAB PEG; +TYLENOL 500MG500 MG PEG; +VALIUM 10MG10 MG/TAB PEG
[2022-06-03 05:53] VITALS: BP 124/80; TEMP 98.6
[2022-06-03 06:40] VITALS: PULSE 94
== END 2022-06-03 06:40 | disposition home or self-care (01) ==
LOC: COL.ER 05:43
DX: K94.23 Gastrostomy malfunction (principal); Z28.310 Unvaccinated for COVID-19; Z86.16 Personal history of COVID-19

== ENCOUNTER 2022-06-11 05:07 | Emergency (ER) | payer MEDICARE, MEDICAID ==
[~2022-06-11] VITALS: Ht 165.1 cm; Wt 90.9 kg
[2022-06-11 05:12] VITALS: TEMP 98.4
[2022-06-11 08:28] VITALS: BP 118/83; PULSE 98
== END 2022-06-11 08:28 | disposition home or self-care (01) ==
LOC: COL.ER 05:07
DX: K94.23 Gastrostomy malfunction (principal)

== ENCOUNTER 2023-05-25 06:56 | Emergency (ER) | payer MEDICARE, MEDICAID ==
[~2023-05-25] VITALS: Ht 162.6 cm; Wt 97.7 kg
[2023-05-25 07:04] VITALS: TEMP 98.1
[2023-05-25 08:29] VITALS: BP 137/99; PULSE 88
== END 2023-05-25 08:23 | disposition home or self-care (01) ==
LOC: COL.ER 06:56
DX: Z43.1 Encounter for attention to gastrostomy (principal); Z86.16 Personal history of COVID-19; Z28.311 Partially vaccinated for COVID-19
CPT/HCPCS: J2270